=== PATIENT | female | born 1970 | race African-American/Black ===

== ENCOUNTER 2019-09-01 12:27 | Emergency (ER) | payer OTHER, MEDICAID, SELFPAY ==
--- NOTE | ~2019-09-01 | CT_ITS ---
EXAMINATION: CT abdomen pelvis wo con DATE: 09/01/2019 15:20 INDICATION: Right abdominal pain. TECHNIQUE: Computed tomography (CT) of the abdomen and pelvis was performed without intravenous contr ast. Automated exposure control and iterative reconstruction technique were employed. The dose-length product was 676.58 mGy-cm. COMPARISON: None. FINDINGS: The visualized portions of the lung bases demonstrate minimal atelectasis in right middle l obe. No pleural effusion. The heart size is normal. No pericardial effusion. The liver, gallbladder, spleen, pancreas, adrenal glands, and kidneys are normal. There is no urolithiasis. There are no dila [place] loops of bowel. The appendix is normal. There are no pathologically enlarged lymph nodes. There i s no free intraperitoneal fluid. There is mild lumbar spondylosis. IMPRESSION: 1. No etiology for the patient's symptoms. Reviewed, dictated and finalized at location A.
[2019-09-01 12:46] VITALS: BP 167/83; PULSE 66; RESP 18; TEMP 36.2; O2SAT 100
--- NOTE | 2019-09-01 12:48 | ED.GENADULT ---
HPI - General Adult General Chief complaint: Unspecified <Garima Rodriguez PA-C - Last Filed: 09/01/19 16:21> Stated complaint: headache/dizziness/right shoulder/side pain <Garima Rodriguez PA-C - Last Filed: 09/01/19 16:21> Time Seen by Provider: 09/01/19 12:37 <Garima Rodriguez PA-C - Last Filed: 09/01/19 16:21> Source: patient <Garima Rodriguez PA-C - Last Filed: 09/01/19 16:21> Mode of arrival: ambulatory <Garima Rodriguez PA-C - Last Filed: 09/01/19 16:21> Limitations: no limitations <Garima Rodriguez PA-C - Last Filed: 09/01/19 16:21> History of Present Illness HPI narrative: Pt is here for a multitude of complaints, including nausea, occasional headache on left, right shoulder pain (which is chronic), and right upper quadrant pain (which is also chronic). She states that she has felt tired and hasn't felt like eating. She had cereal and and a muffin for breakfast. She also had an episode of diarrhea after eating breakfast. <Garima Rodriguez PA-C - Last Filed: 09/01/19 16:21> Onset (ago): day(s) <Garima Rodriguez PA-C - Last Filed: 09/01/19 16:21> Radiation: non-radiation <THAI Chung Last Filed: 09/01/19 16:21> Pain Consistency: intermittent (RUQ) <THAI Chung Last Filed: 09/01/19 16:21> Relieving factors: none <Garima Rodriguez PA-C - Last Filed: 09/01/19 16:21> Exacerbating factors: none <THAI Chung Last Filed: 09/01/19 16:21> Associated symptoms: denies other symptoms <Garima Rodriguez PA-C - Last Filed: 09/01/19 16:21> Treatments prior to arrival: none <Garima Rodriguez PA-C - Last Filed: 09/01/19 16:21> Related Data Home medications: Home Medications Medication Instructions Recorded Confirmed losartan 50 mg PO BID 03/22/19 nitroglycerin 0.4 mg SUBLINGUAL Q5MIN PRN 03/22/19 ticagrelor [Brilinta] 90 mg PO BID 03/22/19 aspirin 81 mg tablet,delayed 81 mg PO DAILY 04/08/19 release atorvastatin 40 mg PO DAILY 09/01/19 bupropion HCl 150 mg PO QAM 09/01/19 escitalopram oxalate 20 mg PO DAILY 09/01/19 metoprolol succinate 25 mg PO DAILY 09/01/19 <Garima Rodriguez PA-C - Last Filed: 09/01/19 16:21> Allergies/adverse reactions: Allergies Allergy/AdvReac Type Severity Reaction Status Date / Time trimethoprim Allergy Severe HIVES, Verified 09/01/19 12:37 RASH, ITCHING sulfamethoxazole Allergy Unknown HIVES, Verified 09/01/19 12:37 RASH, ITCHING <Garima Rodriguez PA-C - Last Filed: 09/01/19 16:21> Review of Systems Review of Systems: All systems reviewed & are unremarkable except as noted in HPI and below <Garima Rodriguez PA-C - Last Filed: 09/01/19 16:21> [facility] Past Medical History Medical History: Medical History Coronary artery disease GERD (gastroesophageal reflux disease) Hypertension Recent heart attack <Garima Rodriguez PA-C - Last Filed: 09/01/19 16:21> Surgical History Surgical History: Surgical History H/O cardiac catheterization H/O: hysterectomy History of section History of colonoscopy <Garima Rodriguez PA-C - Last Filed: 09/01/19 16:21> Family History Family History: Family History Mother Hypertension Lupus Grandparent Hypertension Hyperlipidemia <Garima Rodriguez PA-C - Last Filed: 09/01/19 16:21> Social History Social History: Social History Smoking status: Never smoker Gender identity (if verbalized by the patient): Female <Garima Rodriguez PA-C - Last Filed: 09/01/19 16:21> Exam Const: General: no acute distress and alert <Garima Rodriguez PA-C - Last Filed: 09/01/19 16:21> Orientation/consciousness: patient oriented x3 <[place] Chung
[2019-09-01 12:51] VITALS: PULSE 56
--- NOTE | 2019-09-01 13:00 | ECG_ITS ---
Measurements Intervals [place] Rate: 65 P: 56 CO: 172 QRS: 28 QRSD: 85 T: 15 QT: 420 QTc: 437 Interpretive Statements SINUS RHYTHM BORDERLINE T WAVE ABNORMALITY- ANTEROLAT/INF LEADS BASELINE ARTIFACT- V4-V6 BORDERLINE ECG Electronically Signed On 09-01-2019 13:18:51 CDT by Austin Heller D.O.
[2019-09-01 13:54] VITALS: BP 147/76; PULSE 54; RESP 18; O2SAT 100
[2019-09-01 14:45] LABS: Basophils Percent Auto 0.7 % (0.2-1.2); Eosinophils Absolute Auto 0.3 K/mm3 (0-0.3); Eosinophils Percent Auto 4.6 % (0-4.4); Hematocrit 37.7 % (37.0-47.0); Hemoglobin 11.8 g/dL (12.0-15.0); Immature Granulocyte Absolute 0.04 K/mm3 (0.00-0.031); Immature Granulocyte Percent A 0.7 % (0-0.5); Lymphocytes Absolute Auto 2.21 K/mm3 (0.9-3.2); Lymphocytes Percent Auto 37.6 % (18.3-44.2); Mean Corpuscular HGB Conc 31.3 g/dl (32-36); Mean Corpuscular Hemoglobin 26.8 pg (26-34); Mean Corpuscular Volume 85.7 fl (80-100); Mean Platelet Volume 9.9 fl (7.4-10.4); Monocytes Absolute Auto 0.5 K/mm3 (0.1-0.6); Monocytes Percent Auto 8.5 % (2.6-8.5); Neutrophils Absolute Auto 2.8 K/mm3 (1.3-6.7); Neutrophils Percent Auto 47.9 % (45.5-73.1); Platelet Count Result 238 k/mm3 (150-375); Red Cell Distribution Width 13.9 % (11.5-14.5); White Blood Count 5.9 K/mm3 (4.5-10.0)
[2019-09-01 14:55] LABS: Alanine Aminotransferase 42 U/L (4-35); Albumin Level 4.2 g/dL (3.5-5.1); Alkaline Phosphatase 106 U/L (38-126); Aspartate Amino Transferase 35 U/L (14-36); Bilirubin,Total 0.2 mg/dL (0.2-1.3); Blood Urea Nitrogen 13 mg/dL (7-17); Calcium 8.6 mg/dL (8.4-10.2); Carbon Dioxide 29 mmol/L (22-30); Chloride 102 mmol/L (98-107); Estimated CRCL calculation 94 ml/min; Estimated Glomerular Filt Rate > 60; Glucose 80 mg/dL (65-105); Lipase 58 U/L (23-300); Sodium 137 mmol/L (137-145)
[2019-09-01 15:03] LABS: Add Urine Microscopic? YES; Appearance Urine Clear (Clear); Bacteria Urine Trace /hpf; Bilirubin Urine Negative (Negative); Blood Urine 1+ (Negative); Color Urine Yellow (Yellow); Glucose Urine UA Negative (Negative); Ketones Urine Negative (Negative); Leukocyte Esterase Ur Negative LEU/UL (Negative); Mucus Urine Rare /lpf; Nitrate Urine Negative (Negative); Protein Urine Negative (Negative); Specific Grav Ur 1.016 (1.001-1.035); Squamous Epithelial Cell Urine Occasional /hpf (Few); Urobilinogen Urine Negative mg/dL (<2.0); WBC Urine 0-3 /hpf
[2019-09-01 15:32] VITALS: BP 147/86; PULSE 54; RESP 16; O2SAT 100
[2019-09-01 16:32] VITALS: BP 181/71; PULSE 58; RESP 18; O2SAT 100
== END 2019-09-01 16:34 | disposition home or self-care (01) ==
PROVIDERS: Physician Assistant; Emergency Provider General Practice; PCP Family Medicine
DX: M25.511 Pain in right shoulder (principal); G89.29 Other chronic pain; R10.11 Right upper quadrant pain; I25.10 Atherosclerotic heart disease of native coronary artery without angina pectoris; K21.9 Gastro-esophageal reflux disease without esophagitis; I10 Essential (primary) hypertension; I25.2 Old myocardial infarction; R94.31 Abnormal electrocardiogram [ECG] [EKG]
CPT/HCPCS: 36415; 74176; 80053; 81001; 83690; 85025; 93005; 99284

== ENCOUNTER 2019-09-24 08:58 | Outpatient (CLI) | payer OTHER, MEDICAID, SELFPAY ==
--- NOTE | ~2019-09-24 | CT_ITS ---
EXAMINATION: CT abdomen pelvis w con DATE: 09/24/2019 09:54 INDICATION: Microscopic hematuria TECHNIQUE: Computed tomography (CT) of the abdomen and pelvis was performed with 130 cc Omnipaque 350 intravenous contrast. The dose-length product was 1041.00 mGy-cm. Automated exposure control and ite rative reconstruction technique were employed. COMPARISON: CT dated 09/01/2019 FINDINGS: Lung bases are unremarkable. No significant pleural or pericardial effusion. No significant vascular abnormality. No lymphadenopathy. The liver, spleen, pancreas, adrenal glands are unremarkable. There are tiny hypodensities of the lef t kidney measuring 3 mm or less, likely benign cysts. Gallbladder is present. Ureters are normal in c ourse and caliber. Bladder wall is mildly thickened, although no discrete mass is identified. Nonobst ructive bowel gas pattern. Mild lumbar spondylosis. IMPRESSION: 1. Mild bladder wall thickening, possibly due to underdistention. Consider cystitis in the appropriat e clinical setting. 2: Small hypodense lesions of the left kidney measuring 3 mm or less, most likely benign cysts. Reviewed, dictated and finalized at location A. IMPRESSION: 1. Mild bladder wall thickening, possibly due to underdistention. Consider cyst itis in the appropriate clinical setting. 2: Small hypodense lesions of the left kidney measuring 3 mm or less, most lik julita benign cysts.
[2019-09-24 09:37] LABS: Estimated Glomerular Filt Rate > 60
== END 2019-09-24 08:59 | disposition home or self-care (01) ==
PROVIDERS: PCP Family Medicine; Visit Provider Urology
DX: R31.29 Other microscopic hematuria (principal); N32.9 Bladder disorder, unspecified; N28.9 Disorder of kidney and ureter, unspecified
CPT/HCPCS: 36415; 74177; Q9967

== ENCOUNTER → 2020-05-14 12:36 | Outpatient (CLI) | payer OTHER, MEDICAID, SELFPAY ==
--- NOTE | ~2020-05-14 | US_ITS ---
EXAMINATION: US pelvic complete w TV DATE: 05/14/2020 13:36 INDICATION: Pelvic pain, hysterectomy with questionable right oophorectomy TECHNIQUE: Multiple transabdominal and endovaginal sonographic images of the pelvis were obtained. COMPARISON: 05/20/2017; CT, 09/24/2019 FINDINGS: The uterus is surgically absent. The ovaries are not visualized however no adnexal abnormal ity is seen. There is no free fluid in the pelvis. IMPRESSION: 1. No sonographic correlate for the patient's symptoms. Reviewed, dictated and finalized at location A. 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
== END ==
PROVIDERS: PCP Family Medicine; Visit Provider Obstetrics & Gynecology
DX: R10.2 Pelvic and perineal pain (principal)
CPT/HCPCS: 76830; 76856

== ENCOUNTER 2020-07-09 11:03 | Outpatient (CLI) | payer OTHER, MEDICAID, SELFPAY | END 2020-07-09 11:04 | disposition home or self-care (01) | LOC: ANHCOVIDVC 11:03 | PROVIDERS: PCP Family Medicine | DX: Z23 Encounter for immunization (principal) | CPT/HCPCS: 0001A; 91300 ==

== ENCOUNTER 2020-07-14 08:24 | Outpatient (CLI) | payer OTHER, MEDICAID, SELFPAY ==
[2020-07-14 09:00] LABS: Basophils Percent Auto 0.6 % (0.2-1.2); Eosinophils Absolute Auto 0.2 K/mm3 (0-0.3); Eosinophils Percent Auto 3.9 % (0-4.4); Hematocrit 37.7 % (37.0-47.0); Hemoglobin 11.9 g/dL (12.0-15.0); Immature Granulocyte Absolute 0.01 K/mm3 (0.00-0.031); Immature Granulocyte Percent A 0.2 % (0-0.5); Lymphocytes Absolute Auto 2.23 K/mm3 (0.9-3.2); Mean Corpuscular HGB Conc 31.6 g/dl (32-36); Mean Corpuscular Hemoglobin 27.5 pg (26-34); Mean Corpuscular Volume 87.1 fl (80-100); Mean Platelet Volume 9.8 fl (7.4-10.4); Monocytes Absolute Auto 0.4 K/mm3 (0.1-0.6); Monocytes Percent Auto 8.1 % (2.6-8.5); Neutrophils Absolute Auto 2.5 K/mm3 (1.3-6.7); Neutrophils Percent Auto 46.2 % (45.5-73.1); Platelet Count Result 267 k/mm3 (150-375); Red Blood Count 4.33 M/mm3 (4.2-5.4); Red Cell Distribution Width 14.2 % (11.5-14.5); White Blood Count 5.4 K/mm3 (4.5-10.0)
[2020-07-14 09:23] LABS: Alanine Aminotransferase 38 U/L (4-35); Albumin Level 4.1 g/dL (3.5-5.1); Alkaline Phosphatase 85 U/L (38-126); Anion Gap 5 mmol/L (8-16); Aspartate Amino Transferase 37 U/L (14-36); Bilirubin,Total 0.2 mg/dL (0.2-1.3); Blood Urea Nitrogen 17 mg/dL (7-17); Calcium 8.5 mg/dL (8.4-10.2); Carbon Dioxide 31 mmol/L (22-30); Chloride 104 mmol/L (98-107); Cholesterol 132 mg/dL (0-200); Estimated Glomerular Filt Rate > 60; Glucose 98 mg/dL (65-105); HDL Direct 59 mg/dL; Potassium 3.8 mmol/L (3.4-5.0); Sodium 140 mmol/L (137-145); Triglycerides 50 mg/dL (<150)
[2020-07-14 09:25] LABS: Hemoglobin A1C 5.8 % (<5.7)
[2020-07-14 09:34] LABS: LDL Cholesterol Direct 46 mg/dL
[2020-07-14 10:16] LABS: Free T4 Free Thyroxine 0.94 ng/mL (0.78-2.19); Vitamin D 25 Hydroxy 26.2 ng/mL
== END 2020-07-14 08:25 | disposition home or self-care (01) ==
PROVIDERS: PCP Family Medicine; Visit Provider Family Medicine
DX: R53.83 Other fatigue (principal); I10 Essential (primary) hypertension; E78.5 Hyperlipidemia, unspecified; R73.03 Prediabetes
CPT/HCPCS: 36415; 80053; 80061; 82306; 83036; 84439; 84443; 85025

== ENCOUNTER 2020-07-16 07:45 | Emergency (ER) | payer OTHER, MEDICAID, SELFPAY ==
--- NOTE | ~2020-07-16 | XR_ITS ---
EXAMINATION: XR lumbar spine 2-3V DATE: 07/16/2020 08:21 INDICATION: Low back pain. TECHNIQUE: 3 views of lumbar spine were obtained. COMPARISON: None. FINDINGS: There is 3 degrees levocurvature of lumbar spine. Vertebral body heights are normal. Interv ertebral disc heights are normal. There are endplate osteophytes at all levels. The facet joints are unremarkable. IMPRESSION: 1. Mild lumbar spondylosis. Reviewed, dictated and finalized at location A. IMPRESSION: 1. Mild lumbar spondylosis.
[2020-07-16 07:57] VITALS: BP 135/81; PULSE 72; RESP 18; TEMP 36.5; O2SAT 100
--- NOTE | 2020-07-16 08:29 | ED.BACK ---
HPI - Back Pain/Injury General Chief Complaint: Back Pain/Injury Stated Complaint: right sided back pain Time Seen by Provider: 07/16/20 07:49 History of Present Illness HPI Narrative: Patient is a 49-year-old female who presents ER with right-sided low back pain. Patient reports aching pain for quite a while but cannot put a number on it. Reports last night and all night she started having increased pain in her low back. This morning when she woke up it became very sharp and severe. Is worse with movement and bending. She feels like it grabs. No numbness or tingling in lower extremities, no saddle anesthesia, no urinary/fecal incontinence/retention. Has not tried any [id number] medications for this. She does have a naproxen allergy. No known trauma. No fevers or chills. Patient reports chronic night sweats. Related Data Allergies Allergy/AdvReac Type Severity Reaction Status Date / Time naproxen [From Aleve] Allergy Unknown Verified 07/16/20 07:59 Review of Systems Review of Systems: All systems reviewed & are unremarkable except as noted in HPI and below Constitutional: Constitutional: Denies chills, Denies fever(s) and Denies weakness Gastrointestinal: Gastrointestinal: Denies abdominal pain, Denies nausea and Denies vomiting Musculoskeletal: Musculoskeletal: Reports back pain, Denies arthralgias, Denies joint swelling and Reports muscle cramps Neurologic: Denies focal weakness and Denies numbness PMFSH Past Medical History Medical History (Updated 07/16/20 @ 08:45 by Sam Lerma MD) Anxiety Coronary artery disease Depression GERD (gastroesophageal reflux disease) Hyperlipidemia Hypertension Myocardial infarct Surgical History Surgical History (Updated 07/16/20 @ 08:43 by Sam Lerma MD) History of partial hysterectomy History of percutaneous coronary intervention Social History Social History (Updated 07/16/20 @ 08:43 by Sam Lerma MD) Smoking status: Never smoker Gender identity (if verbalized by the patient): Female Exam Narrative: Exam Narrative: GENERAL: Well-appearing, well-nourished, and in no acute distress. HEAD: Normocephalic, atraumatic. CHEST: Clear to auscultation. No respiratory distress. HEART: Regular rate and rhythm. Normal peripheral pulses. EXTREMITIES: Normal range of motion. No edema. Back: No midline tenderness of thoracic or lumbar spine. There is significant paraspinal muscular tenderness that the SI region and L4 region on the right side. No left-sided paraspinal muscular tenderness. Normal straight leg raise. SKIN: Warm, dry, no rash. NEURO: Alert and oriented x3. Course Course Emergency Course: Patient declining any pain medication in the ER. Informed results. Requests some time off work to let her back recover. This seems fair, will prescribe Flexeril for home and patient reports she has Tylenol she can take. Also recommended ice and heat as well as Biofreeze for symptomatic relief. Vital Signs Vital signs: Vital Signs Temperature 97.7 F 07/16/20 07:57 Pulse Rate 72 07/16/20 07:57 Respiratory Rate 18 07/16/20 07:57 Blood Pressure 135/81 07/16/20 07:57 Pulse Oximetry 100 07/16/20 07:57 Temperature 97.7 F 07/16/20 07:57 Pulse Rate 72 07/16/20 07:57 Respiratory Rate 18 07/16/20 07:57 Blood Pressure 135/81 07/16/20 07:57 Pulse Oximetry 100 07/16/20 07:57 MDM - Back Pain/Injury Imaging Data Radiologist's impression: ITS Impressions Lumbar Spine X-Ray 07/16/20 08:27 IMPRESSION: 1. Mild lumbar spondylosis. Discharge Plan Discharge Clinical Impression: Strain of lumbar region Patient Disposition: Home, Self-Care Condition: Stable Instructions: Acute Low Back Pain (ED), Lower Back Exercises (ED) Additional Instructions: Return to the ER if you have increased pain in your back, you develop lower extremity weakness/numbness/paralysis, you have numbness o
== END 2020-07-16 08:58 | disposition home or self-care (01) ==
PROVIDERS: Emergency Provider Emergency Medicine; PCP Family Medicine
DX: S39.012A Strain of muscle, fascia and tendon of lower back, initial encounter (principal); I25.10 Atherosclerotic heart disease of native coronary artery without angina pectoris; K21.9 Gastro-esophageal reflux disease without esophagitis; E78.5 Hyperlipidemia, unspecified; I10 Essential (primary) hypertension; I25.2 Old myocardial infarction; M47.816 Spondylosis without myelopathy or radiculopathy, lumbar region; X58.XXXA Exposure to other specified factors, initial encounter
CPT/HCPCS: 72100; 99283

== ENCOUNTER 2020-07-30 11:12 | Outpatient (CLI) | payer OTHER, MEDICAID, SELFPAY | END 2020-07-30 11:13 | disposition home or self-care (01) | LOC: ANHCOVIDVC 11:12 | PROVIDERS: PCP Family Medicine | DX: Z23 Encounter for immunization (principal) | CPT/HCPCS: 0002A; 91300 ==

== ENCOUNTER 2020-09-21 08:54 | Outpatient (CLI) | payer OTHER, MEDICAID, SELFPAY ==
--- NOTE | ~2020-09-21 | US_ITS ---
EXAMINATION: US right upper quadrant DATE: 09/21/2020 09:19 INDICATION: Right upper quadrant abdominal pain. TECHNIQUE: Multiple grayscale and Doppler ultrasound images of the abdomen were obtained. COMPARISON: None FINDINGS: The visualized portions of the head, body, and tail of the pancreas are normal. There is di ffuse hepatic steatosis. No liver surface nodularity. There is normal flow in main portal vein. The g allbladder is normal in size. No gallstones or gallbladder wall thickening. There is no sonographic M urphy sign. The common duct is normal and measures 3 mm. IMPRESSION: 1. Diffuse hepatic steatosis. Reviewed, dictated and finalized at location B.
== END 2020-09-21 08:55 | disposition home or self-care (01) ==
LOC: ANHIMG 08:59
PROVIDERS: PCP Family Medicine; Visit Provider Family Medicine
DX: R10.11 Right upper quadrant pain (principal); K76.0 Fatty (change of) liver, not elsewhere classified
CPT/HCPCS: 76705

== ENCOUNTER 2020-12-28 09:38 | Emergency (ER) | payer OTHER, MEDICAID, SELFPAY ==
[2020-12-28 09:38] VITALS: BP 150/71; PULSE 89; RESP 20; TEMP 36.6; O2SAT 99
--- NOTE | 2020-12-28 09:44 | ECG_ITS ---
Measurements Intervals [place] Rate: 77 P: 60 NE: 177 QRS: 7 QRSD: 89 T: 5 QT: 393 QTc: 447 Interpretive Statements SINUS RHYTHM POSSIBLE LEFT ATRIAL ENLARGEMENT INCOMPLETE RIGHT BUNDLE BRANCH BLOCK VOLTAGE CRITERIA FOR LVH BORDERLINE T WAVE ABNORMALITY- ANTEROLAT/INF LEADS BASELINE ARTIFACT- I, II, III, AVR, AVL BORDERLINE ECG Electronically Signed On 12-28-2020 9:57:08 CDT by Austin Heller D.O.
[2020-12-28 10:54] LABS: Basophils Percent Auto 0.5 % (0.2-1.2); Eosinophils Percent Auto 0.5 % (0-4.4); Hematocrit 40.3 % (37.0-47.0); Hemoglobin 12.4 g/dL (12.0-15.0); Immature Granulocyte Absolute 0.04 K/mm3 (0.00-0.031); Immature Granulocyte Percent A 0.5 % (0-0.5); Lymphocytes Absolute Auto 1.85 K/mm3 (0.9-3.2); Lymphocytes Percent Auto 22.9 % (18.3-44.2); Mean Corpuscular HGB Conc 30.8 g/dl (32-36); Mean Corpuscular Hemoglobin 26.9 pg (26-34); Mean Corpuscular Volume 87.4 fl (80-100); Mean Platelet Volume 9.4 fl (7.4-10.4); Monocytes Absolute Auto 0.6 K/mm3 (0.1-0.6); Monocytes Percent Auto 6.8 % (2.6-8.5); Neutrophils Absolute Auto 5.6 K/mm3 (1.3-6.7); Neutrophils Percent Auto 68.8 % (45.5-73.1); Platelet Count Result 290 k/mm3 (150-375); Red Blood Count 4.61 M/mm3 (4.2-5.4); Red Cell Distribution Width 14.7 % (11.5-14.5); White Blood Count 8.1 K/mm3 (4.5-10.0)
[2020-12-28 11:12] LABS: Anion Gap 9 mmol/L (8-16); Blood Urea Nitrogen 14 mg/dL (7-17); Calcium 9.3 mg/dL (8.4-10.2); Carbon Dioxide 29 mmol/L (22-30); Chloride 96 mmol/L (98-107); Estimated CRCL calculation 82 ml/min; Estimated Glomerular Filt Rate > 60; Glucose 126 mg/dL (65-110); Potassium 3.8 mmol/L (3.4-5.0); Sodium 134 mmol/L (137-145)
--- NOTE | 2020-12-28 11:30 | ED.HA ---
HPI - Headache General Chief Complaint: Headache Stated Complaint: HEADACHE Time Seen by Provider: 12/28/20 11:10 History of Present Illness HPI Narrative: 50 yo female w/ h/o htn presents to the ED with multiple complaints. She reports that since yesterday she has had a strange uncomfortable feeling in her head. She says that the left side of her scalp feels like a sponge that has had the water squeezed out of it. In addition to this she also complains of intermittent dizziness. It is difficult to tell if this is more vertigo, near syncope, or a combination. She also has intermittent, but not temporally related nausea. in addition to this she also feels like her hands and legs are getting hot. Related Data Home Medications Medication Instructions Recorded Confirmed atorvastatin 12/28/20 clopidogrel 12/28/20 felodipine mg PO 12/28/20 hydrochlorothiazide 12/28/20 losartan 12/28/20 metoprolol succinate PO 12/28/20 12/28/20 Allergies Allergy/AdvReac Type Severity Reaction Status Date / Time naproxen [From Aleve] Allergy Unknown Verified 07/16/20 07:59 Review of Systems Review of Systems: All systems reviewed & are unremarkable except as noted in HPI and below Constitutional: Constitutional: Denies fever(s) and Denies weakness ENT: Reports dizziness and Reports nasal congestion Cardiovascular: Cardiovascular: Denies chest pain Respiratory: Respiratory: Reports no additional respiratory complaints Gastrointestinal: Gastrointestinal: Denies abdominal pain Genitourinary: Genitourinary: Denies hematuria and Denies dysuria Musculoskeletal: Musculoskeletal: Reports no additional musculoskeletal complaints Neurologic: Reports as per HPI Psychiatric: Psychiatric: Reports no additional psychiatric complaints Endocrine: Endocrine: Reports no additional endocrine complaints Hematologic/Lymphatic: Hematologic/Lymphatic: Reports no additional hematologic/lymphatic complaints [facility] Past Medical History Medical History Anxiety Coronary artery disease Depression GERD (gastroesophageal reflux disease) Hyperlipidemia Hypertension Myocardial infarct Surgical History Surgical History History of partial hysterectomy History of percutaneous coronary intervention Social History Social History Smoking status: Never smoker Gender identity (if verbalized by the patient): Female Exam Const: General: healthy appearing, no acute distress and alert Orientation/consciousness: patient oriented x3 HENMT: Head: normal to inspection, no contusions and no lacerations Ears: external ears normal, TM's normal bilaterally and EAC's normal Face and sinus: normal facial exam and sinuses nontender Mouth: Yes moist mucous membranes abnormal Eyes: Conjunctivae: conjunctivae normal Pupils: Equal, round and reactive pupils present EOM: EOMs intact bilaterally Neck: Neck: normal visual inspection and no lymphadenopathy Resp: Effort & Inspection: normal respiratory effort Auscultation: clear to auscultation bilaterally, no rales, no rhonchi and no wheezes Cardio: Jugular venous distension: no JVD Rate: regular rate Rhythm: regular rhythm Heart sounds: no murmurs GI: Inspection: non-distended GI Palp: Yes Soft to palpation and No Tenderness to palpation present (GI) Skin: General skin exam: normal color Rashes: no rashes Neuro: General: patient oriented x3, moves all extremities, no focal motor deficits and CN's II-XI intact bilaterally Cranial nerves: Yes Nystagmus not present Speech: normal speech Gait exam (Neuro): Normal gait present Motor exam (neuro): 5/5 motor strength present throughout Extrem: General: no edema Psych: Appearance: well kempt Affect: Anxious affect present Course Vital Signs Vital signs: Vital Signs Temperat
[2020-12-28] MEDS: SODIUM CHLORIDE 0.9% IV 1,000 ML 999 ML IV CONT (12:09)
--- NOTE | 2020-12-28 12:18 | PC.NURSE ---
Pt refused medication. EDP notified
[2020-12-28] MEDS: MECLIZINE HCL 25 MG TABLET PO (13:43)
[2020-12-28 13:44] VITALS: BP 149/69; PULSE 87; RESP 19; O2SAT 99
== END 2020-12-28 14:11 | disposition home or self-care (01) ==
PROVIDERS: Emergency Medicine; Emergency Provider Emergency Medicine; PCP Family Medicine
DX: R42 Dizziness and giddiness (principal); I10 Essential (primary) hypertension; I25.10 Atherosclerotic heart disease of native coronary artery without angina pectoris; K21.9 Gastro-esophageal reflux disease without esophagitis; E78.5 Hyperlipidemia, unspecified; I25.2 Old myocardial infarction; I45.10 Unspecified right bundle-branch block; R94.31 Abnormal electrocardiogram [ECG] [EKG]
CPT/HCPCS: 36415; 80048; 85025; 93005; 96360; 99283; A9270; J7030

== ENCOUNTER 2020-12-30 23:21 | Emergency (ER) | payer OTHER, MEDICAID, SELFPAY ==
--- NOTE | ~2020-12-30 | XR_ITS ---
EXAMINATION: XR chest 2V DATE: 12/30/2020 23:47 INDICATION: Chest pain. TECHNIQUE: Frontal and lateral views of the chest were obtained. COMPARISON: Chest single view 06/16/2018, CT abdomen and pelvis 09/24/2019 FINDINGS: There is scarring at right lung apex. No pleural effusion or pneumothorax. The heart size i s normal. IMPRESSION: 1. Stable mild scarring at right lung apex. Reviewed, dictated and finalized at location A.
[2020-12-30 23:22] VITALS: BP 165/79; PULSE 77; RESP 20; TEMP 36.3; O2SAT 100
--- NOTE | 2020-12-30 23:27 | ECG_ITS ---
Measurements Intervals [place] Rate: 78 P: 62 [place]: 136 QRS: 25 QRSD: 85 T: 44 QT: 396 QTc: 453 Interpretive Statements SINUS RHYTHM POSSIBLE LEFT ATRIAL ENLARGEMENT INCOMPLETE RIGHT BUNDLE BRANCH BLOCK BORDERLINE ECG Electronically Signed On 12-31-2020 6:20:01 CDT by Austin Heller D.O.
[2020-12-30 23:41] LABS: Basophils Percent Auto 0.3 % (0.2-1.2); Eosinophils Absolute Auto 0.1 K/mm3 (0-0.3); Eosinophils Percent Auto 0.7 % (0-4.4); Hematocrit 41.5 % (37.0-47.0); Hemoglobin 13.1 g/dL (12.0-15.0); Immature Granulocyte Absolute 0.01 K/mm3 (0.00-0.031); Immature Granulocyte Percent A 0.1 % (0-0.5); Lymphocytes Absolute Auto 2.99 K/mm3 (0.9-3.2); Lymphocytes Percent Auto 30.2 % (18.3-44.2); Mean Corpuscular HGB Conc 31.6 g/dl (32-36); Mean Corpuscular Hemoglobin 27.3 pg (26-34); Mean Corpuscular Volume 86.6 fl (80-100); Mean Platelet Volume 9.1 fl (7.4-10.4); Monocytes Absolute Auto 0.6 K/mm3 (0.1-0.6); Monocytes Percent Auto 6.4 % (2.6-8.5); Neutrophils Absolute Auto 6.2 K/mm3 (1.3-6.7); Neutrophils Percent Auto 62.3 % (45.5-73.1); Platelet Count Result 307 k/mm3 (150-375); Red Blood Count 4.79 M/mm3 (4.2-5.4); Red Cell Distribution Width 14.4 % (11.5-14.5); White Blood Count 9.9 K/mm3 (4.5-10.0)
[2020-12-30 23:52] LABS: INR 0.9; Prothrombin Time 11.8 Seconds (11.1-14.7)
[2020-12-30 23:53] LABS: Anion Gap 7 mmol/L (8-16); Blood Urea Nitrogen 13 mg/dL (7-17); Calcium 9.5 mg/dL (8.4-10.2); Carbon Dioxide 29 mmol/L (22-30); Chloride 100 mmol/L (98-107); Estimated CRCL calculation 82 ml/min; Estimated Glomerular Filt Rate > 60; Glucose 136 mg/dL (65-110); Partial Thromboplastin Time 29.6 SECONDS (22.3-36.8); Potassium 3.7 mmol/L (3.4-5.0); Sodium 136 mmol/L (137-145)
[2020-12-31 00:05] LABS: Troponin I < 0.012 ng/mL (0.000-0.034)
--- NOTE | 2020-12-31 00:15 | ED.CHESTPAIN ---
HPI - Chest Pain General Chief Complaint: Chest Pain Stated Complaint: rapid heart beat, tingling hands, pressure lf head Time Seen by Provider: 12/31/20 00:03 Source: patient Mode of arrival: ambulatory Limitations: no limitations History of Present Illness HPI narrative: 50-year-old with a history of CAD, anxiety disorder here with complaints of chest pain . Hand and feet swelling and tingling sensation in the face and arms started few hours ago. Patient states she was seen in the ER 2 days ago for vertigo and also has seen her primary doctor who started on Lexapro and alprazolam. Patient states that she has taken Lexapro but not alprazolam. She presently denies having any chest pain or shortness of breath. She states that by the time she came to the ER her symptoms have much subsided. MD complaint: chest discomfort Pertinent past history: prior [place] Onset (ago): hour(s) (3) Timing of current episode: episodic Prior episodes: No Pain location: substernal Pain radiation: none Quality: fullness and other (Butterflies on the chest) Relieving factors: nothing Exacerbating factors: nothing Context: recent illness Treatment prior to arrival: none Risk Factors Coronary artery disease risk factors: hyperlipidemia and hypertension Related Data On Oral Contraceptives: No Home Medications Medication Instructions Recorded Confirmed losartan 50 mg PO BID 03/22/19 05/17/20 nitroglycerin 0.4 mg SUBLINGUAL Q5MIN PRN 03/22/19 05/17/20 aspirin 81 mg tablet,delayed 81 mg PO DAILY 04/08/19 05/17/20 release atorvastatin 40 mg PO DAILY 09/01/19 05/17/20 bupropion HCl 150 mg PO QAM 09/01/19 05/17/20 escitalopram oxalate 20 mg PO DAILY 09/01/19 05/17/20 metoprolol succinate 25 mg PO DAILY 09/01/19 05/17/20 amlodipine 5 mg tablet 5 mg PO DAILY 05/07/20 05/17/20 famotidine 20 mg tablet 20 mg PO DAILY 05/07/20 05/17/20 hydrochlorothiazide 25 mg tablet 25 mg PO DAILY 05/07/20 05/17/20 Allergies Allergy/AdvReac Type Severity Reaction Status Date / Time trimethoprim Allergy Severe HIVES, Verified 12/31/20 00:24 RASH, ITCHING sulfamethoxazole Allergy Unknown HIVES, Verified 12/31/20 00:24 RASH, ITCHING naproxen [From Aleve] Allergy Hives Verified 12/31/20 00:24 Review of Systems Review of Systems: All systems reviewed & are unremarkable except as noted in HPI and below Constitutional: Constitutional: Reports no additional constitutional complaints Eyes: Eyes: Reports no additional eye complaints ENT: Reports system reviewed and no additional complaints, except as documented Cardiovascular: Cardiovascular: Reports as per HPI Respiratory: Respiratory: Reports as per HPI Gastrointestinal: Gastrointestinal: Reports no additional gastrointestinal complaints Musculoskeletal: Musculoskeletal: Reports no additional musculoskeletal complaints Neurologic: Reports system reviewed and no additional complaints, except as documented Psychiatric: Psychiatric: Reports anxiety Endocrine: Endocrine: Reports no additional endocrine complaints [facility] Past Medical History Medical History (Updated 12/31/20 @ 00:27 by Dave Villar MD) Coronary artery disease GERD (gastroesophageal reflux disease) Hypertension Recent heart attack Surgical History Surgical History H/O cardiac catheterization H/O: hysterectomy History of section History of colonoscopy Family History Family History Mother Hypertension Lupus Grandparent Hypertension Hyperlipidemia Mother Hypertension Family history of lupus erythematosus, Onset Age: 59 Grandparent Hypertension, Onset Age: 74 Family history of elevated blood lipids, Onset Age: 74 Social History Social History Smoking status: Never smoker Second hand tobacco smoke exposure: No Alcohol intake: current
[2020-12-31 00:38] VITALS: BP 154/78; PULSE 65; RESP 14; O2SAT 100
== END 2020-12-31 00:38 | disposition home or self-care (01) ==
PROVIDERS: Emergency Provider Family Medicine; PCP Family Medicine
DX: F41.9 Anxiety disorder, unspecified (principal); R07.89 Other chest pain; I25.10 Atherosclerotic heart disease of native coronary artery without angina pectoris; K21.9 Gastro-esophageal reflux disease without esophagitis; I10 Essential (primary) hypertension
CPT/HCPCS: 36415; 71046; 80048; 84484; 85025; 85610; 85730; 93005; 99284

== ENCOUNTER 2021-01-28 12:42 | Outpatient (CLI) | payer OTHER, MEDICAID, SELFPAY ==
--- NOTE | ~2021-01-28 | MR_ITS ---
EXAMINATION: MR brain/brain stem wo/w con EXAM DATE: 01/28/2021 14:40 INDICATION: Other Abn of gait and mobility . Positive Romberg sign, abnormal gait. Frequent headaches . TECHNIQUE: Magnetic resonance imaging (MRI) of the brain/brain stem obtained without contrast. Sagit adalgisa T1, axial diffusion, gradient echo (T2*), T1, T2, FLAIR sequences obtained. Patient was then inj ected with 18 cc intravenous Multihance contrast. Axial and coronal postcontrast T1 weighted sequence s obtained. There is no prior study for comparison. FINDINGS: There are no areas of restricted diffusion to suggest acute infarction. There is no acute hemorrhage seen on the T2*, a hemosiderin sensitive sequence. No intraparenchymal brain mass. The ve ntricles are normal in size. There are no extra-axial collections. Flow voids are seen in the cereb ral arteries on the T2-weighted sequences consistent with their expected patency. The orbits are unr emarkable. Soft tissue is unremarkable. There are no areas of abnormal enhancement on the postcont rast images. IMPRESSION: 1. Normal brain MRI examination. Reviewed, dictated and finalized at location A.
[2021-01-28 14:16] LABS: Estimated Glomerular Filt Rate > 60
== END 2021-01-28 12:43 | disposition home or self-care (01) ==
PROVIDERS: PCP Family Medicine; Visit Provider Family Medicine
DX: R26.9 Unspecified abnormalities of gait and mobility (principal)
CPT/HCPCS: 70553; A9577

== ENCOUNTER → 2021-03-16 09:59 | Outpatient (REF) | payer OTHER, MEDICAID, SELFPAY | LOC: ANHLAB 09:59 | PROVIDERS: PCP Family Medicine; Visit Provider Nurse Practitioner | DX: L90.5 Scar conditions and fibrosis of skin (principal); D36.10 Benign neoplasm of peripheral nerves and autonomic nervous system, unspecified | CPT/HCPCS: 88304; 88305 ==

== ENCOUNTER 2021-06-05 10:10 | Outpatient (CLI) | payer BC, MEDICAID, SELFPAY ==
--- NOTE | ~2021-06-05 | MM_ITS ---
EXAMINATION: MM screening dania BI w betsy HISTORY: Screening TECHNIQUE: Craniocaudal and mediolateral oblique 3-D tomosynthesis images were obtained and synthetic 2-D images were generated. CAD analysis was submitted and interpreted. COMPARISON: Comparison to multiple prior studies sequentially, with oldest reviewed study dated 12/12. BREAST PARENCHYMAL COMPOSITION: There are scattered areas of fibroglandular density. FINDINGS: There is no evidence of suspicious mass, calcification, or architectural distortion to sugg est malignancy in either breast. There has been no suspicious interval change. IMPRESSION: 1. No mammographic evidence of malignancy. 2. Recommend routine screening mammography in one year. BI-RADS Category 1: Negative Reviewed, dictated and finalized at location A. 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
== END 2021-06-05 10:11 | disposition home or self-care (01) ==
PROVIDERS: Visit Provider Obstetrics & Gynecology
DX: Z12.31 Encounter for screening mammogram for malignant neoplasm of breast (principal)
CPT/HCPCS: 77063; 77067

== ENCOUNTER 2021-07-10 08:43 | Outpatient (CLI) | payer BC, OTHER, MEDICAID, SELFPAY ==
--- NOTE | ~2021-07-10 | XR_ITS ---
EXAMINATION: XR hip RT min 2V DATE: 07/10/2021 09:01 INDICATION: Trochanteric bursitis of right hip. TECHNIQUE: 2 views of right hip were obtained. COMPARISON: None. FINDINGS: Bone alignment is normal. No fracture. There is mild right hip osteoarthritis. IMPRESSION: 1. Mild right hip osteoarthritis. Reviewed, dictated and finalized at location A. 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
== END 2021-07-10 08:44 | disposition home or self-care (01) ==
PROVIDERS: PCP Family Medicine; Visit Provider Family Medicine
DX: M70.61 Trochanteric bursitis, right hip (principal); M16.11 Unilateral primary osteoarthritis, right hip
CPT/HCPCS: 73502

== ENCOUNTER 2021-08-12 11:10 | Outpatient (CLI) | payer BC, OTHER, MEDICAID, SELFPAY ==
--- NOTE | ~2021-08-12 | CT_ITS ---
EXAMINATION: CT abdomen pelvis w con INDICATION: Right lower quadrant pain TECHNIQUE: Computed tomographic images of the abdomen and pelvis were obtained after the administrati on of 100 cc of Omnipaque 350 intravenous contrast. The dose-length product (DLP) was 869.14 mGy-cm. Automated exposure control and iterative reconstruction technique were employed. COMPARISON: 09/24/2019 FINDINGS: The lung bases are clear. The heart size is normal. A coronary artery stent is noted. The l iver, spleen, pancreas, gallbladder, and adrenal glands are normal. The kidneys are unremarkable. No pathologically enlarged abdominal or pelvic lymph nodes are identified. There is no free intraperiton eal gas or evidence of bowel obstruction. The appendix is not definitely identified although no right lower quadrant inflammatory change is seen. There is mild lumbar spondylosis. IMPRESSION: 1. No CT correlate for the patient's symptoms. Reviewed, dictated and finalized at location A.
[2021-08-12 11:29] LABS: Estimated Glomerular Filt Rate > 60
== END 2021-08-12 11:11 | disposition home or self-care (01) ==
LOC: ANHIMG 11:11
PROVIDERS: PCP Family Medicine; Visit Provider Internal Medicine Gastroenterology
DX: R10.31 Right lower quadrant pain (principal); M47.816 Spondylosis without myelopathy or radiculopathy, lumbar region; Z95.5 Presence of coronary angioplasty implant and graft
CPT/HCPCS: 74177; Q9967

== ENCOUNTER 2021-09-21 13:54 | Outpatient (CLI) | payer BC, MEDICAID, SELFPAY ==
[2021-09-24 06:17] LABS: FSH 96.1 mIU/mL (***)
== END 2021-09-21 13:55 | disposition home or self-care (01) ==
LOC: ANHLAB 13:59
PROVIDERS: Visit Provider Obstetrics & Gynecology
DX: N95.1 Menopausal and female climacteric states (principal)
CPT/HCPCS: 36415; 83001

== ENCOUNTER 2021-10-30 09:53 | Outpatient (CLI) | payer BC, SELFPAY ==
[2021-10-30 10:16] LABS: Basophils Percent Auto 0.4 % (0.2-1.2); Eosinophils Absolute Auto 0.1 K/mm3 (0-0.3); Eosinophils Percent Auto 0.6 % (0-4.4); Hematocrit 39.2 % (37.0-47.0); Hemoglobin 12.1 g/dL (12.0-15.0); Immature Granulocyte Absolute 0.03 K/mm3 (0.00-0.031); Immature Granulocyte Percent A 0.3 % (0-0.5); Lymphocytes Absolute Auto 3.38 K/mm3 (0.9-3.2); Lymphocytes Percent Auto 31.2 % (18.3-44.2); Mean Corpuscular HGB Conc 30.9 g/dl (32-36); Mean Corpuscular Hemoglobin 27.6 pg (26-34); Mean Corpuscular Volume 89.3 fl (80-100); Mean Platelet Volume 8.9 fl (7.4-10.4); Monocytes Percent Auto 8.8 % (2.6-8.5); Neutrophils Absolute Auto 6.4 K/mm3 (1.3-6.7); Neutrophils Percent Auto 58.7 % (45.5-73.1); Platelet Count Result 278 k/mm3 (150-375); Red Blood Count 4.39 M/mm3 (4.2-5.4); Red Cell Distribution Width 15.1 % (11.5-14.5); White Blood Count 10.8 K/mm3 (4.5-10.0)
[2021-10-30 10:25] LABS: Alanine Aminotransferase 68 U/L (6-35); Alkaline Phosphatase 88 U/L (38-126); Anion Gap 3 mmol/L (8-16); Aspartate Amino Transferase 31 U/L (14-36); Bilirubin,Total 0.3 mg/dL (0.2-1.3); Blood Urea Nitrogen 21 mg/dL (7-17); Calcium 8.4 mg/dL (8.4-10.2); Carbon Dioxide 35 mmol/L (22-30); Chloride 102 mmol/L (98-107); Cholesterol 173 mg/dL (0-200); Estimated Glomerular Filt Rate > 60; Glucose 81 mg/dL (65-110); HDL Direct 65 mg/dL; Hemoglobin A1C 6.1 % (<5.7); Potassium 4.3 mmol/L (3.4-5.0); Sodium 140 mmol/L (137-145); Triglycerides 103 mg/dL (<150)
[2021-10-30 10:36] LABS: LDL Cholesterol Direct 56 mg/dL
[2021-11-02 23:10] LABS: Vitamin D 1,25 (OH)2 Total 44 pg/mL (18-72); Vitamin D2 1,25 (OH)2 <8 pg/mL; Vitamin D3 1,25 (OH)2 44 pg/mL
== END 2021-10-30 09:54 | disposition home or self-care (01) ==
LOC: ANHLAB 09:54
PROVIDERS: PCP Family Medicine; Visit Provider Family Medicine
DX: R53.83 Other fatigue (principal); I10 Essential (primary) hypertension; E66.9 Obesity, unspecified; E78.2 Mixed hyperlipidemia
CPT/HCPCS: 36415; 80053; 80061; 82607; 82652; 83036; 84443; 85025

== ENCOUNTER 2021-11-28 11:46 | Emergency (ER) | payer BC, SELFPAY ==
[2021-11-28] VITALS (8 sets, daily range): BP systolic 132–136; BP diastolic 71–84; PULSE 55–67; RESP 14–26; TEMP 36.5; O2SAT 98–100
--- NOTE | ~2021-11-28 | XR_ITS ---
EXAMINATION: XR chest 2V DATE: 11/28/2021 13:57 INDICATION: 2 weeks of cough and shortness of breath TECHNIQUE: PA and lateral views of the chest were obtained. COMPARISON: Chest radiograph dated 12/30/2020 FINDINGS: The lungs remain clear with no focal airspace opacities, pulmonary edema, pleural effusion or pneumot horax. The cardiomediastinal silhouette is normal. Visualized bones and soft tissues are unremarkable . IMPRESSION: 1. No acute cardiopulmonary disease. Reviewed, dictated and finalized at location A.
[2021-11-28 12:34] LABS: SARS-CoV-2 RNA PCR Negative
--- NOTE | 2021-11-28 13:47 | ECG_ITS ---
Measurements Intervals [place] Rate: 59 P: 51 HI: 180 QRS: 4 QRSD: 92 T: -12 QT: 437 QTc: 434 Interpretive Statements SINUS BRADYCARDIA POSSIBLE LEFT ATRIAL ENLARGEMENT LEFT VENTRICULAR HYPERTROPHY BORDERLINE T WAVE ABNORMALITY- ANT/INF LEADS BASELINE ARTIFACT- I, II, III, AVR, AVL, AVF, V1-V2 BORDERLINE ECG Electronically Signed On 11-28-2021 14:45:58 CDT by Austin Heller D.O.
[2021-11-28 14:26] LABS: Basophils Percent Auto 0.4 % (0.2-1.2); Eosinophils Absolute Auto 0.1 K/mm3 (0-0.3); Eosinophils Percent Auto 0.9 % (0-4.4); Hematocrit 40.7 % (37.0-47.0); Hemoglobin 12.4 g/dL (12.0-15.0); Immature Granulocyte Absolute 0.02 K/mm3 (0.00-0.031); Immature Granulocyte Percent A 0.3 % (0-0.5); Lymphocytes Absolute Auto 2.32 K/mm3 (0.9-3.2); Lymphocytes Percent Auto 34.4 % (18.3-44.2); Mean Corpuscular HGB Conc 30.5 g/dl (32-36); Mean Corpuscular Hemoglobin 27.2 pg (26-34); Mean Corpuscular Volume 89.3 fl (80-100); Mean Platelet Volume 9.4 fl (7.4-10.4); Monocytes Absolute Auto 0.5 K/mm3 (0.1-0.6); Neutrophils Absolute Auto 3.8 K/mm3 (1.3-6.7); Platelet Count Result 355 k/mm3 (150-375); Red Blood Count 4.56 M/mm3 (4.2-5.4); Red Cell Distribution Width 15.3 % (11.5-14.5); White Blood Count 6.7 K/mm3 (4.5-10.0)
[2021-11-28 14:38] LABS: Prothrombin Time 12.7 Seconds (11.1-14.7)
[2021-11-28 14:39] LABS: Partial Thromboplastin Time 29.3 SECONDS (22.3-36.8)
[2021-11-28 14:42] LABS: Alanine Aminotransferase 37 U/L (6-35); Albumin Level 4.5 g/dL (3.5-5.1); Alkaline Phosphatase 113 U/L (38-126); Anion Gap 8 mmol/L (8-16); Aspartate Amino Transferase 40 U/L (14-36); Bilirubin,Total 0.4 mg/dL (0.2-1.3); Blood Urea Nitrogen 13 mg/dL (7-17); Calcium 9.1 mg/dL (8.4-10.2); Carbon Dioxide 32 mmol/L (22-30); Chloride 100 mmol/L (98-107); Estimated CRCL calculation 81 ml/min; Estimated Glomerular Filt Rate > 60; Glucose 94 mg/dL (65-110); Lipase 38 U/L (23-300); Potassium 3.7 mmol/L (3.4-5.0); Sodium 140 mmol/L (137-145)
[2021-11-28 14:43] LABS: D Dimer 0.36 ug/mL (<0.48)
[2021-11-28 14:52] LABS: Troponin I < 0.012 ng/mL (0.000-0.034)
--- NOTE | 2021-11-28 15:04 | ED.GENADULT ---
HPI - General Adult General Chief complaint: Upper Respiratory Infection Stated complaint: cough, sob, bodyaches Time Seen by Provider: 11/28/21 13:42 Source: RN notes reviewed History of Present Illness HPI narrative: Patient presents emergency room from home for respiratory infection patient states she is had a cough this been nonproductive for the past 2 weeks. States is associated with pain in her right upper back described as aching and worse with coughing she notes generalized body aches as well. She denies any fevers or chills, rhinorrhea, sore throat, abdominal pain nausea vomiting or any other symptoms. Patient denies having any chest pain Related Data Home Medications Medication Instructions Recorded Confirmed losartan 50 mg tablet 50 mg PO BID 03/22/19 10/29/21 metoprolol succinate 25 mg 25 mg PO DAILY 09/01/19 10/29/21 tablet,extended release 24 hr clopidogrel 75 mg tablet PO DAILY 01/19/21 10/29/21 aspirin 81 mg tablet,delayed 81 mg PO DAILY 10/29/21 10/29/21 release (Adult Aspirin Regimen) atorvastatin 20 mg tablet 20 mg PO QHS 11/02/21 Allergies Allergy/AdvReac Type Severity Reaction Status Date / Time trimethoprim Allergy Severe HIVES, Verified 11/28/21 14:05 RASH, ITCHING sulfamethoxazole Allergy Unknown HIVES, Verified 11/28/21 14:05 RASH, ITCHING naproxen [From Aleve] Allergy Unknown Verified 11/28/21 14:05 Review of Systems Review of Systems: Gen.: Denies fevers or chills ENT: Denies congestion Respiratory: See HPI CV: Denies chest pain or palpitations GI: Denies abdominal pain nausea, emesis Musculoskeletal: reports right upper back pain Neuro: Denies numbness, tingling, weakness or focal weakness Skin: Denies rash Except as documented, all other systems reviewed and negative [facility] Past Medical History Medical History Anxiety Coronary artery disease Coronary artery disease Depression GERD (gastroesophageal reflux disease) GERD (gastroesophageal reflux disease) Hyperlipidemia Hypertension Hypertension Myocardial infarct Recent heart attack Surgical History Surgical History H/O cardiac catheterization History of section History of colonoscopy History of partial hysterectomy History of percutaneous coronary intervention Family History Family History Mother Hypertension Lupus Grandparent Hypertension Hyperlipidemia Mother Hypertension Family history of lupus erythematosus, Onset Age: 59 Grandparent Hypertension, Onset Age: 74 Family history of elevated blood lipids, Onset Age: 74 Social History Social History Social History: Smoking status: Never smoker Second hand tobacco smoke exposure: No Alcohol intake: never Substance use: never Substance use type: does not use Gender identity (if verbalized by the patient): Female Sexual Orientation (if Verbalized by the Patient): Straight or Heterosexual Exam Narrative: APPEARANCE: No acute distress, nontoxic, resting in bed EYES: EOMI HEENT: Normocephalic, atraumatic, OMM RESPIRATORY: No respiratory distress Clear to auscultation bilaterally with no rhonchi rales mild wheezing with coughing only CARDIOVASCULAR: Regular rate and rhythm without murmurs rubs or gallops. ABDOMINAL: Soft, nontender, nondistended, no rebound or guarding MUSCULOSKELETAl: Moves all extremities. No clubbing, cyanosis or edema. Back: No midline thoracic or returns palpation tender palpation of the right upper back in the region of ribs 6 through 8 worse with coughing NEURO: Awake and alert. Following commands, speech normal, no focal deficits SKIN:: Warm, dry. No rashes lesions or abrasions PSYCHIATRIC: Normal affect/mood, Course Course Emergency Course:
[2021-11-28] MEDS: methylPREDNISolone SOD SUCC 125 MG VIAL IV PUSH (15:20)
== END 2021-11-28 15:36 | disposition home or self-care (01) ==
PROVIDERS: Emergency Provider Emergency Medicine; PCP Family Medicine
DX: J06.9 Acute upper respiratory infection, unspecified (principal); Z20.822 Contact with and (suspected) exposure to COVID-19; I25.10 Atherosclerotic heart disease of native coronary artery without angina pectoris; E78.5 Hyperlipidemia, unspecified; I10 Essential (primary) hypertension; I25.2 Old myocardial infarction; K21.9 Gastro-esophageal reflux disease without esophagitis; Z79.82 Long term (current) use of aspirin; Z90.711 Acquired absence of uterus with remaining cervical stump; R00.1 Bradycardia, unspecified; I51.7 Cardiomegaly; R94.31 Abnormal electrocardiogram [ECG] [EKG]
CPT/HCPCS: 36415; 71046; 80053; 83690; 84484; 85025; 85380; 85610; 85730; 93005; 96365; 96375; 99284; C9803; J0131; J2930; U0003; U0005

== ENCOUNTER 2022-06-10 06:51 | Emergency (ER) | payer BC, SELFPAY ==
[2022-06-10] VITALS (7 sets, daily range): BP systolic 110–143; BP diastolic 67–73; PULSE 67–79; RESP 15–18; TEMP 36.8; O2SAT 98–100
--- NOTE | ~2022-06-10 | XR_ITS ---
Clinical Indication: Chest pain PA and lateral views of the chest: Comparison: 11/28/2021 Findings: The lungs are clear, without evidence of focal consolidation or pleural effusion. Cardiome diastinal silhouette is within normal limits. Bones and soft tissues are unremarkable. Impression: Normal chest. Reviewed, dictated and finalized at location . ORATE SAFETY COORDINATOR Impression: Normal chest.
--- NOTE | 2022-06-10 06:58 | ECG_ITS ---
Measurements Intervals [place] Rate: 68 P: 55 MD: 190 QRS: 10 QRSD: 89 T: 13 QT: 402 QTc: 430 Interpretive Statements SINUS RHYTHM POSSIBLE LEFT ATRIAL ENLARGEMENT [-0.1mV P-WAVE IN V1/V2] POSSIBLE RIGHT VENTRICULAR CONDUCTION DELAY [RSR (QR) IN V1/V2] NONSPECIFIC T-WAVE ABNORMALITY COMPARED TO ECG 11/28/2021 14:38:12 NO SIGNIFICANT CHANGE Electronically Signed On 06-10-2022 13:11:06 END PACKER by Dangelo Mendez M.D.
[2022-06-10 07:11] LABS: Basophils Percent Auto 0.7 % (0.2-1.2); Eosinophils Absolute Auto 0.2 K/mm3 (0-0.3); Eosinophils Percent Auto 3.9 % (0-4.4); Hematocrit 39.5 % (37.0-47.0); Hemoglobin 12.3 g/dL (12.0-15.0); Lymphocytes Absolute Auto 2.22 K/mm3 (0.9-3.2); Lymphocytes Percent Auto 37.8 % (18.3-44.2); Mean Corpuscular HGB Conc 31.1 g/dl (32-36); Mean Corpuscular Hemoglobin 27.6 pg (26-34); Mean Corpuscular Volume 88.8 fl (80-100); Mean Platelet Volume 9.3 fl (7.4-10.4); Monocytes Absolute Auto 0.6 K/mm3 (0.1-0.6); Monocytes Percent Auto 10.2 % (2.6-8.5); Neutrophils Absolute Auto 2.8 K/mm3 (1.3-6.7); Neutrophils Percent Auto 47.4 % (45.5-73.1); Platelet Count Result 267 k/mm3 (150-375); Red Blood Count 4.45 M/mm3 (4.2-5.4); Red Cell Distribution Width 14.2 % (11.5-14.5); White Blood Count 5.9 K/mm3 (4.5-10.0)
[2022-06-10 07:22] LABS: Alanine Aminotransferase 35 U/L (6-35); Albumin Level 4.3 g/dL (3.5-5.1); Alkaline Phosphatase 101 U/L (38-126); Anion Gap 7 mmol/L (8-16); Aspartate Amino Transferase 38 U/L (14-36); Bilirubin,Total 0.4 mg/dL (0.2-1.3); Blood Urea Nitrogen 14 mg/dL (7-17); Calcium 8.2 mg/dL (8.4-10.2); Carbon Dioxide 30 mmol/L (22-30); Chloride 99 mmol/L (98-107); Estimated CRCL calculation 81 ml/min; Estimated Glomerular Filt Rate > 60; Glucose 123 mg/dL (65-110); Lipase 59 U/L (23-300); Potassium 3.5 mmol/L (3.4-5.0); Sodium 136 mmol/L (137-145)
[2022-06-10 07:32] LABS: Troponin I < 0.012 ng/mL (0.000-0.034)
--- NOTE | 2022-06-10 07:38 | ED.CHESTPAIN ---
HPI - Chest Pain General Chief Complaint: Chest Pain Stated Complaint: chest pain Time Seen by Provider: 06/10/22 07:38 Source: patient History of Present Illness HPI narrative: 51 years old -[place] female presents with central chest aching pain started while preparing to go to work this morning. Dull aching, no radiation, denies shortness of breath or diaphoresis. Patient denies aggravating or relieving factors but noticed that make impression by her finger on her breast bone causing severe pain. She denies any fever, chills, nausea, vomiting, recent physical activities. History of coronary stents times 06/2018, hypertension, hyperlipidemia patient does not smoke or drink or uses drugs. Strong family history of coronary artery disease. Related Data Home Medications Medication Instructions Recorded Confirmed losartan 50 mg tablet 50 mg PO BID 03/22/19 05/05/22 metoprolol succinate 25 mg 25 mg PO DAILY 09/01/19 05/05/22 tablet,extended release 24 hr clopidogrel 75 mg tablet PO DAILY 01/19/21 05/05/22 aspirin 81 mg tablet,delayed 81 mg PO DAILY 10/29/21 05/05/22 release (Adult Aspirin Regimen) atorvastatin 20 mg tablet 20 mg PO QHS 11/02/21 05/05/22 Allergies Allergy/AdvReac Type Severity Reaction Status Date / Time trimethoprim Allergy Severe HIVES, Verified 05/05/22 10:26 RASH, ITCHING sulfamethoxazole Allergy Unknown HIVES, Verified 06/10/22 07:17 RASH, ITCHING naproxen [From Aleve] Allergy Unknown Verified 06/10/22 07:17 Review of Systems Review of Systems: All systems reviewed & are unremarkable except as noted in HPI and below PMFSH Past Medical History Medical History Anxiety Coronary artery disease Coronary artery disease Depression GERD (gastroesophageal reflux disease) GERD (gastroesophageal reflux disease) Hyperlipidemia Hypertension Hypertension Myocardial infarct Recent heart attack Surgical History Surgical History H/O cardiac catheterization History of section History of colonoscopy History of partial hysterectomy History of percutaneous coronary intervention Family History Family History Mother Hypertension Lupus Grandparent Hypertension Hyperlipidemia Mother Hypertension Family history of lupus erythematosus, Onset Age: 59 Grandparent Hypertension, Onset Age: 74 Family history of elevated blood lipids, Onset Age: 74 Social History Social History Social History: Smoking status: Never smoker Second hand tobacco smoke exposure: No Alcohol intake: never Substance use: never Substance use type: does not use Living arrangements: with family Occupation/Education: occupation Gender identity (if verbalized by the patient): Female Sexual Orientation (if Verbalized by the Patient): Straight or Heterosexual Exam Narrative: General appearance: Well-developed, well-nourished Skin: Normal color Head: Normocephalic, nontraumatic Eyes: Clear conjunctiva ENT: Oropharynx normal, ears normal, nose normal Neck: Supple, nontender Chest and respiratory: Airway patent, no respiratory distress, no accessory muscle use, tenderness sternum with palpation, no bruises, no swelling, no rash Heart: Regular rate/rhythm Abdomen: Soft, nontender, no organomegaly, quiet bowel sounds Vascular: Normal peripheral pulses, normal capillary refill. 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
--- NOTE | 2022-06-10 09:45 | PC.NURSE ---
Addendum entered by Debi Francisco RN 06/10/22 09:48: Correction: Pt only took 81 mg today, will administer the remaining dose Original Note: Pt took full 324 mg of aspirin today
[2022-06-10 09:46] LABS: Partial Thromboplastin Time 30.1 SECONDS (22.3-36.8); Prothrombin Time 12.3 Seconds (11.1-14.7)
[2022-06-10] MEDS: ASPIRIN 81 MG CHEWABLE TABLET 324 MG PO (09:50)
[2022-06-10 09:52] LABS: D Dimer 0.37 ug/mL (<0.48)
[2022-06-10 09:56] LABS: Troponin I < 0.012 ng/mL (0.000-0.034)
--- NOTE | 2022-06-10 09:58 | PC.NURSE ---
Pt requesting to wait about an hour to take the metoprolol that is ordered
[2022-06-10 10:13] LABS: Influenza A QL RT-PCR Negative (Negative); Influenza B QL RT-PCR Negative (Negative); SARS-CoV-2 RNA PCR Negative
--- NOTE | 2022-06-10 11:47 | PC.NURSE ---
This RN called into room, pt states i just want to go home. im tired of waiting. Nothing is happening This RN explained the process of admission. This RN apologized for the delay of getting her a bed but reassured her that she was being taken care of. Pt still asked to leave. AMA forms signed and pt ambulated out of room with no difficulty
== END 2022-06-10 11:51 | disposition left against medical advice (07) ==
LOC: ANHED 09:32 → ANHIMU 12:41
PROVIDERS: Preventive Medicine Aerospace Medicine; Emergency Provider Emergency Medicine; PCP Family Medicine
DX: R07.9 Chest pain, unspecified (principal); Z20.822 Contact with and (suspected) exposure to COVID-19; I10 Essential (primary) hypertension; E78.5 Hyperlipidemia, unspecified; I25.10 Atherosclerotic heart disease of native coronary artery without angina pectoris; I25.2 Old myocardial infarction; K21.9 Gastro-esophageal reflux disease without esophagitis; F41.9 Anxiety disorder, unspecified; F32.A Depression, unspecified; Z95.5 Presence of coronary angioplasty implant and graft; Z79.82 Long term (current) use of aspirin; Z90.711 Acquired absence of uterus with remaining cervical stump; R94.31 Abnormal electrocardiogram [ECG] [EKG]
CPT/HCPCS: 36415; 71046; 80053; 83690; 84484; 85025; 85380; 85610; 85730; 87636; 93005; 99284; A9270

== ENCOUNTER 2022-11-07 15:03 | Outpatient (CLI) | payer BC, SELFPAY ==
--- NOTE | ~2022-11-07 | XR_ITS ---
EXAMINATION: XR chest 2V DATE: 11/07/2022 14:59 INDICATION: Encounter for other preprocedural examination TECHNIQUE: PA and lateral views of the chest are obtained. COMPARISON: 06/10/2022 FINDINGS: The lungs are free of acute opacities. No pleural effusion or pneumothorax. The cardiomedia stinal silhouette is normal. There is mild thoracic spondylosis. There appears to be a coronary arter y stent. IMPRESSION: 1. No acute cardiopulmonary abnormality. Reviewed, dictated and finalized at location B.
[2022-11-07 16:03] LABS: Basophils Percent Auto 0.6 % (0.2-1.2); Eosinophils Absolute Auto 0.3 K/mm3 (0-0.3); Eosinophils Percent Auto 3.4 % (0-4.4); Hematocrit 39.7 % (37.0-47.0); Hemoglobin 12.2 g/dL (12.0-15.0); Immature Granulocyte Absolute 0.02 K/mm3 (0.00-0.031); Immature Granulocyte Percent A 0.3 % (0-0.5); Lymphocytes Absolute Auto 3.04 K/mm3 (0.9-3.2); Lymphocytes Percent Auto 41.9 % (18.3-44.2); Mean Corpuscular HGB Conc 30.7 g/dl (32-36); Mean Corpuscular Hemoglobin 27.1 pg (26-34); Mean Platelet Volume 10.3 fl (7.4-10.4); Monocytes Absolute Auto 0.6 K/mm3 (0.1-0.6); Monocytes Percent Auto 7.7 % (2.6-8.5); Neutrophils Absolute Auto 3.3 K/mm3 (1.3-6.7); Neutrophils Percent Auto 46.1 % (45.5-73.1); Platelet Count Result 312 k/mm3 (150-375); Red Blood Count 4.51 M/mm3 (4.2-5.4); Red Cell Distribution Width 14.7 % (11.5-14.5); White Blood Count 7.3 K/mm3 (4.5-10.0)
[2022-11-07 16:14] LABS: INR 0.9; Prothrombin Time 12.5 Seconds (11.1-14.7)
[2022-11-07 16:15] LABS: Partial Thromboplastin Time 31.1 SECONDS (22.3-36.8)
[2022-11-07 16:17] LABS: Alanine Aminotransferase 43 U/L (6-35); Albumin Level 4.4 g/dL (3.5-5.1); Alkaline Phosphatase 95 U/L (38-126); Anion Gap 1 mmol/L (8-16); Aspartate Amino Transferase 38 U/L (14-36); Bilirubin,Total 0.4 mg/dL (0.2-1.3); Blood Urea Nitrogen 11 mg/dL (7-17); Calcium 8.8 mg/dL (8.4-10.2); Carbon Dioxide 39 mmol/L (22-30); Chloride 100 mmol/L (98-107); Estimated Glomerular Filt Rate > 60; Glucose 86 mg/dL (65-110); Potassium 3.6 mmol/L (3.4-5.0); Sodium 140 mmol/L (137-145)
[2022-11-07 16:23] LABS: Appearance Urine Clear (Clear); Bilirubin Urine Negative (Negative); Blood Urine Negative (Negative); Color Urine Yellow (Yellow); Glucose Urine UA Negative (Negative); Ketones Urine Negative (Negative); Leukocyte Esterase Ur Negative LEU/UL (Negative); Nitrate Urine Negative (Negative); Protein Urine Negative (Negative); Specific Grav Ur 1.018 (1.001-1.035); Urobilinogen Urine 0.2 mg/dL (<2.0)
[2022-11-07 16:31] LABS: Add Urine Microscopic? NO
[2022-11-07 16:56] LABS: Pregnancy On Board Control Positive; Urine Pregnancy Test Negative
[2022-11-07 17:03] LABS: HIV 1/2 Ab P24 Ag Result Negative (Negative)
== END 2022-11-07 15:04 | disposition home or self-care (01) ==
PROVIDERS: PCP Family Medicine; Visit Provider Physician Assistant
DX: Z01.818 Encounter for other preprocedural examination (principal)
CPT/HCPCS: 36415; 71046; 80053; 81003; 81025; 85025; 85610; 85730; 86703; G0432

== ENCOUNTER 2022-12-20 08:31 | Outpatient (CLI) | payer BC, SELFPAY ==
[2022-12-20 09:31] LABS: Hematocrit 39.4 % (37.0-47.0); Mean Corpuscular HGB Conc 30.5 g/dl (32-36); Mean Corpuscular Hemoglobin 27.5 pg (26-34); Mean Corpuscular Volume 90.2 fl (80-100); Mean Platelet Volume 9.9 fl (7.4-10.4); Platelet Count Result 294 k/mm3 (150-375); Red Blood Count 4.37 M/mm3 (4.2-5.4); Red Cell Distribution Width 15.9 % (11.5-14.5); White Blood Count 5.4 K/mm3 (4.5-10.0)
[2022-12-20 09:41] LABS: INR 0.9; Prothrombin Time 12.9 Seconds (11.1-14.7)
[2022-12-20 09:42] LABS: Partial Thromboplastin Time 30.4 SECONDS (22.3-36.8)
[2022-12-20 09:49] LABS: Anion Gap 3 mmol/L (8-16); Blood Urea Nitrogen 11 mg/dL (7-17); Calcium 8.8 mg/dL (8.4-10.2); Carbon Dioxide 33 mmol/L (22-30); Chloride 101 mmol/L (98-107); Estimated Glomerular Filt Rate > 60; Glucose 92 mg/dL (65-110); Potassium 4.4 mmol/L (3.4-5.0); Sodium 137 mmol/L (137-145)
== END 2022-12-20 08:32 | disposition home or self-care (01) ==
PROVIDERS: PCP Family Medicine; Visit Provider Family Medicine
DX: Z01.818 Encounter for other preprocedural examination (principal)
CPT/HCPCS: 36415; 80048; 85027; 85610; 85730

== ENCOUNTER 2023-03-27 07:45 | Outpatient (CLI) | payer BC, SELFPAY ==
--- NOTE | ~2023-03-27 | MMUS_ITS ---
EXAMINATION: MM diagnostic dania BI w betsy, US breast LT limited HISTORY: Lower inner quadrant breast lump (not felt by patient today) TECHNIQUE: Additional 3-D tomosynthesis images of were performed and synthetic 2-D images were genera [place]. CAD analysis was submitted and interpreted. COMPARISON: 06/05/2021, 12/12/2017bilateral screening mammograms BREAST PARENCHYMAL COMPOSITION: There are scattered areas of fibroglandular density. MAMMOGRAM FINDINGS: No suspicious mass or architectural distortion, malignant calcification, skin thi ckening or retraction or significant new or developing density is detected. LOWER INNER QUADRANT ULTRASOUND: No suspicious mass or shadowing, cyst or other significant sonograph ic abnormalities detected in the lower inner quadrant of the left breast. IMPRESSION: 1. No evidence of malignancy 2. Routine mammographic screening is recommended BI-RADS Category 1: Negative Reviewed, dictated and finalized at location A. E HISTORIAN IMPRESSION: 1. No evidence of malignancy 2. Routine mammographic screening is recommended BI-RADS Category 1: Negative
== END 2023-03-27 07:46 ==
LOC: MICIMG 07:46
PROVIDERS: PCP Physician Assistant; Visit Provider Physician Assistant
DX: N64.4 Mastodynia (principal)
CPT/HCPCS: 76642; 77062; 77066; G0279

== ENCOUNTER 2023-05-09 08:48 | Outpatient (CLI) | payer BC, SELFPAY ==
[2023-05-09 09:21] LABS: Rheumatoid Factor < 12.0 IU/ML (<12)
[2023-05-12 08:35] LABS: ANA Cascade Screen Negative (Negative)
== END 2023-05-09 08:49 | disposition home or self-care (01) ==
LOC: ANHLAB 08:50
PROVIDERS: PCP Family Medicine; Visit Provider Physician Assistant
DX: M25.50 Pain in unspecified joint (principal)
CPT/HCPCS: 36415; 86038; 86225; 86235; 86364; 86430

== ENCOUNTER 2023-08-10 12:32 | Outpatient (CLI) | payer BC, SELFPAY ==
--- NOTE | ~2023-08-10 | US_ITS ---
Pelvic ultrasound. Clinical History: Pelvic pain Technique: Realtime transabdominal and transvaginal scanning of the pelvis was performed. Color flow Doppler and Doppler spectral analysis were performed. Findings: The uterus is absent, compatible prior hysterectomy. Neither ovary visualized. No adnexal mass seen.. There is no evidence of free fluid in the cul de sac. Impression: No significant abnormality seen. Status post hysterectomy and presumed bilateral oophorectomy. Correl ate with surgical history. Reviewed, dictated and finalized at location M. Impression: No significant abnormality seen. Status post hysterectomy and presumed bilatera l oophorectomy. Correlate with surgical history.
== END 2023-08-10 12:33 | disposition home or self-care (01) ==
LOC: ANHIMG 12:35
PROVIDERS: PCP Family Medicine; Visit Provider Obstetrics & Gynecology
DX: R10.2 Pelvic and perineal pain (principal)
CPT/HCPCS: 76830; 76856

== ENCOUNTER 2023-08-14 16:41 | Outpatient (CLI) | payer BC, SELFPAY ==
[2023-08-14 17:37] LABS: Influenza A QL RT-PCR Negative (Negative); Influenza B QL RT-PCR Negative (Negative); RSV RNA, RT-PCR Negative (Negative); SARS-CoV-2 RNA PCR Negative (Negative)
== END 2023-08-14 16:42 | disposition home or self-care (01) ==
LOC: ANHLAB 16:42
PROVIDERS: PCP Family Medicine; Visit Provider Physician Assistant
DX: J02.9 Acute pharyngitis, unspecified (principal); Z20.822 Contact with and (suspected) exposure to COVID-19
CPT/HCPCS: 87637

== ENCOUNTER 2023-08-18 07:26 | Emergency (ER) | payer BC, SELFPAY ==
--- NOTE | ~2023-08-18 | XR_ITS ---
Clinical Indication: Cough PA and lateral views of the chest: Comparison: None Findings: The lungs are clear, without evidence of focal consolidation or pleural effusion. Cardiome diastinal silhouette is within normal limits. Bones and soft tissues are unremarkable. Impression: Normal chest. Reviewed, dictated and finalized at location . Impression: Normal chest.
[2023-08-18 07:31] VITALS: BP 156/73; PULSE 95; RESP 18; O2SAT 95
[2023-08-18 07:34] VITALS: TEMP 37.1
--- NOTE | 2023-08-18 07:44 | PC.NURSE ---
pt is refusing EKG, line, labs, and covid/flu/RSV swab patient reported these are not necessary
--- NOTE | 2023-08-18 08:31 | ED.SOB ---
HPI - SOB/Dyspnea General Chief Complaint: Shortness of Breath/Dyspnea Stated Complaint: Cough, SOB Time Seen by Provider: 08/18/23 07:58 Source: patient Mode of arrival: ambulatory Limitations: no limitations History of Present Illness HPI Narrative: 52-year-old with a history of CAD, hypertension here with complaints of cold, congestion, cough for past 4 days. Patient states that she has seen a primary doctor was given inhalers and nasal spray she denies any fever chest pain. She thinks she may have COPD. MD elicited complaint: shortness of breath and cough Onset (ago): day(s) (4) Timing: constant Severity: moderate Relieving factors: nothing Associated symptoms: denies other symptoms Related Data Home oxygen amount: none Home Medications Medication Instructions Recorded Confirmed metoprolol succinate 25 mg 25 mg PO DAILY 09/01/19 08/15/23 tablet,extended release 24 hr clopidogrel 75 mg tablet PO DAILY 01/19/21 08/15/23 aspirin 81 mg tablet,delayed 81 mg PO DAILY 10/29/21 08/15/23 release (Adult Aspirin Regimen) atorvastatin 20 mg tablet 40 mg PO QHS 01/12/23 08/15/23 cholecalciferol (vitamin D3) 10 10 mcg PO DAILY 01/12/23 08/15/23 mcg (400 unit) capsule cyanocobalamin (vitamin B-12) 1,000 mcg PO DAILY 01/12/23 08/15/23 1,000 mcg capsule Allergies Allergy/AdvReac Type Severity Reaction Status Date / Time trimethoprim Allergy Severe HIVES, Verified 08/18/23 07:33 RASH, ITCHING sulfamethoxazole Allergy Unknown HIVES, Verified 08/18/23 07:33 RASH, ITCHING naproxen [From Aleve] Allergy Unknown Verified 08/18/23 07:33 Review of Systems Review of Systems: All systems reviewed & are unremarkable except as noted in HPI and below Constitutional: Constitutional: Reports no additional constitutional complaints Eyes: Eyes: Reports no additional eye complaints ENT: Reports system reviewed and no additional complaints, except as documented Cardiovascular: Cardiovascular: Reports no additional cardiovascular complaints Respiratory: Respiratory: Reports as per HPI Gastrointestinal: Gastrointestinal: Reports no additional gastrointestinal complaints Musculoskeletal: Musculoskeletal: Reports no additional musculoskeletal complaints PMFSH Past Medical History Medical History Anxiety Coronary artery disease Coronary artery disease Depression GERD (gastroesophageal reflux disease) GERD (gastroesophageal reflux disease) Hyperlipidemia Hypertension Hypertension Myocardial infarct Recent heart attack Surgical History Surgical History H/O cardiac catheterization History of section History of colonoscopy History of partial hysterectomy History of percutaneous coronary intervention Family History Family History Mother Hypertension Lupus Family history of lupus erythematosus Grandparent Hypertension Hyperlipidemia Family history of elevated blood lipids Father No problems noted. Sibling No problems noted. Social History Social History Social History: Smoking status: Never smoker Second hand tobacco smoke exposure: No Alcohol intake: never Substance use: never Substance use type: does not use Lack of Transportation: No Lack of Food: Never True Current Housing: I Have Housing Concerned About Future Housing: No Difficulty Paying Gas/Electric Bills: No Difficulty Paying for Meds: No Currently Unemployed: No Education: Decline to Answer Difficulty w/ Childcare or Family Care: No Living arrangements: with family Occupation/Education: occupation Gender identity (if verbalized by the patient): Female Sexual Orientation (if Verbalized by the Patient): Straight or Heterosexual Exam Narrative: GENERAL: Well-appearing, well-nourished, and in no acute distress. HEAD: Normocephalic, atraumatic. EYES: PERRLA and EOMI. ENT: Nares clear, no rhinorrhea or epistaxis. Mucous membranes moist. NECK: Supple. CHEST: Clear to auscultation. No respiratory distress. HEART: Regular rate and rhythm. No murmur heard. Normal peripheral pulses. ABDOMEN: Soft, nontender, nondistended, normal active bowel sounds. EXTREMITIES: Normal range of motion. No edema. SKIN: Warm, dry, no rash. NEURO: No focal deficits. Alert and oriented x3. PSYCH: Normal mood and affect. Course Course Emergency Course: Patient comfortably sitting on the chair in no discomfort. Informed her about her lab work, chest x-ray findings. Advised to continue home medications Vital Signs Vital signs: Vital Signs Pulse Rate 95 08/18/23 07:31 Respiratory Rate 18 08/18/23 07:31 Blood Pressure 156/73 H 08/18/23 07:31 Pulse Oximetry 95 08/18/23 07:31 Oxygen Delivery Room Air 08/18/23 07:31 Temperature 37.1 C 08/18/23 07:34 Pulse Rate 95 08/18/23 07:31 Respiratory Rate 18 08/18/23 07:31 Blood Pressure 156/73 H 08/18/23 07:31 Pulse Oximetry 95 08/18/23 07:31 Oxygen Delivery Room Air 08/18/23 07:31 MDM - SOB/Dyspnea Medical Records Attestation: I reviewed the patient's medical records. Lab Data Attestation: I reviewed the patient's lab results. Imaging Data Radiologist's impression: ITS Impressions Chest X-Ray 08/18/23 08:28 Impression: Normal chest. Discharge Plan Discharge Clinical Impression: Acute bronchitis, viral Patient Disposition: Home, Self-Care Condition: Stable Instructions: Acute Bronchitis (ED) Additional Instructions: Continue home medications, follow with your doctor you Prescriptions: No Action nitroglycerin 0.4 mg tablet, sublingual 0.4 mg sublingual Q5MIN PRN (Reason: Chest Pain) Qty: 60 0RF aspirin [Adult Aspirin Regimen] 81 mg tablet,delayed release (DR/EC) 81 mg PO DAILY cholecalciferol (vitamin D3) 10 mcg (400 unit) capsule 10 mcg PO DAILY cyanocobalamin (vitamin B-12) 1,000 mcg capsule 1,000 mcg PO DAILY benzonatate 100 mg capsule 200 mg PO TID PRN (Reason: cough) Qty: 60 0RF dexamethasone 4 mg tablet 4 mg PO .COMPLEX Qty: 24 0RF Rx Instructions: 4 mg orally; 1 and a half tabs BID x4days, then 1 tab BID x 4 days, then half tab BID x 4 days albuterol sulfate 90 mcg/actuation HFA aerosol inhaler 1 inh inhalation Q4H PRN (Reason: shortness of breath or wheezing) Qty: 6.7 0RF fluticasone propionate 50 mcg/actuation spray,suspension 1 spray intranasal DAILY Qty: 16 0RF Rx Instructions: administer into each nostril metoprolol succinate 25 mg tablet extended release 24 hr 25 mg PO DAILY clopidogrel 75 mg tablet PO DAILY lidocaine 5 % adhesive patch,medicated 1 patch topical DAILY Qty: 15 0RF Rx Instructions: leave on most painful area for up to 12 hrs valacyclovir [Valtrex] 500 mg tablet 500 mg PO DAILY Qty: 100 0RF Rx Instructions: Take 1 tablet daily for suppression and take 1 tablet BID x 3 days for outbreaks. escitalopram oxalate 20 mg tablet 20 mg PO DAILY Qty: 60 1RF atorvastatin 20 mg tablet 40 mg PO QHS losartan 50 mg tablet 50 mg PO BID Qty: 180 1RF bupropion HCl 150 mg tablet extended release 24 hr See Rx Instructions .ROUTE .COMPLEX Qty: 60 1RF Dose Instruction: TAKE 1 TABLET BY MOUTH ONCE DAILY IN THE MORNING Rx Instructions: TAKE 1 TABLET BY MOUTH ONCE DAILY IN THE MORNING felodipine 5 mg tablet extended release 24 hr 5 mg PO DAILY Qty: 90 1RF Follow-up/Referrals: Melisa Clements MD [Primary Care Provider] - Time of Disposition: 09:27
[2023-08-18 09:03] LABS: Basophils Percent Auto 0.2 % (0.2-1.2); Hematocrit 38.5 % (37.0-47.0); Hemoglobin 11.9 g/dL (12.0-15.0); Immature Granulocyte Absolute 0.04 K/mm3 (0.00-0.031); Immature Granulocyte Percent A 0.4 % (0-0.5); Lymphocytes Absolute Auto 2.13 K/mm3 (0.9-3.2); Lymphocytes Percent Auto 23.8 % (18.3-44.2); Mean Corpuscular HGB Conc 30.9 g/dl (32-36); Mean Corpuscular Hemoglobin 26.6 pg (26-34); Mean Corpuscular Volume 86.1 fl (80-100); Mean Platelet Volume 9.9 fl (7.4-10.4); Monocytes Absolute Auto 0.7 K/mm3 (0.1-0.6); Monocytes Percent Auto 7.7 % (2.6-8.5); Neutrophils Absolute Auto 6.1 K/mm3 (1.3-6.7); Neutrophils Percent Auto 67.9 % (45.5-73.1); Platelet Count Result 273 k/mm3 (150-375); Red Blood Count 4.47 M/mm3 (4.2-5.4); Red Cell Distribution Width 15.3 % (11.5-14.5); White Blood Count 8.9 K/mm3 (4.5-10.0)
[2023-08-18 09:13] LABS: Atypical Lymphocytes Present; Hypochromasia 1+; Platelet Estimate Adequate (Adequate); Schistocytes None Seen
[2023-08-18 09:16] LABS: Alanine Aminotransferase 51 U/L (6-35); Albumin Level 4.4 g/dL (3.5-5.1); Alkaline Phosphatase 89 U/L (38-126); Anion Gap 6 mmol/L (4-12); Aspartate Amino Transferase 46 U/L (14-36); Bilirubin,Total 0.4 mg/dL (0.2-1.3); Blood Urea Nitrogen 12 mg/dL (7-17); Calcium 8.5 mg/dL (8.4-10.2); Carbon Dioxide 28 mmol/L (22-30); Chloride 104 mmol/L (98-107); Estimated CRCL calculation 90 ml/min; Estimated Glomerular Filt Rate > 60; Glucose 97 mg/dL (65-110); Potassium 3.6 mmol/L (3.4-5.0); Sodium 138 mmol/L (137-145)
== END 2023-08-18 09:35 | disposition home or self-care (01) ==
PROVIDERS: Emergency Medicine; Emergency Provider Family Medicine; PCP Family Medicine
DX: J20.8 Acute bronchitis due to other specified organisms (principal); I25.10 Atherosclerotic heart disease of native coronary artery without angina pectoris; I10 Essential (primary) hypertension; E78.5 Hyperlipidemia, unspecified; I25.2 Old myocardial infarction; Z90.711 Acquired absence of uterus with remaining cervical stump; Z79.82 Long term (current) use of aspirin
CPT/HCPCS: 36415; 71046; 80053; 85025; 99283

== ENCOUNTER 2023-08-21 20:17 | Emergency (ER) | payer BC, SELFPAY ==
--- NOTE | 2023-08-21 20:29 | PC.NURSE ---
rubina Khan pg cp, bnp, covid swab
--- NOTE | 2023-08-21 20:40 | PC.NURSE ---
1st call for triage, no answer
--- NOTE | 2023-08-21 20:46 | PC.NURSE ---
2nd call for triage, no answer
--- NOTE | 2023-08-21 21:03 | PC.NURSE ---
2nd call for radiology, no answer.
== END 2023-08-21 20:40 | disposition left against medical advice (07) ==
LOC: ANHED 21:09
PROVIDERS: PCP Family Medicine
DX: Z53.21 Procedure and treatment not carried out due to patient leaving prior to being seen by health care provider (principal)
CPT/HCPCS: 99199

== ENCOUNTER 2023-09-26 16:23 | Outpatient (CLI) | payer BC, SELFPAY ==
[2023-09-26 17:19] LABS: Alanine Aminotransferase 82 U/L (6-35); Aspartate Amino Transferase 47 U/L (14-36)
== END 2023-09-26 16:24 | disposition home or self-care (01) ==
PROVIDERS: PCP Family Medicine; Visit Provider Family Medicine
DX: R74.8 Abnormal levels of other serum enzymes (principal); R79.89 Other specified abnormal findings of blood chemistry
CPT/HCPCS: 36415; 84450; 84460

== ENCOUNTER 2023-11-04 08:17 | Emergency (ER) | payer BC, SELFPAY ==
--- NOTE | ~2023-11-04 | XR_ITS ---
EXAMINATION: XR shoulder LT min 2V DATE: 11/04/2023 08:54 INDICATION: Left shoulder lump. TECHNIQUE: 5 views of left shoulder were obtained. COMPARISON: None. FINDINGS: Bone alignment is normal. No fracture. There is mild osteoarthritis of glenohumeral joint a nd acromioclavicular joint. IMPRESSION: 1. Polyarticular osteoarthritis. Reviewed, dictated and finalized at location A.
[2023-11-04 08:26] VITALS: BP 139/87; PULSE 65; RESP 17; O2SAT 100
--- NOTE | 2023-11-04 09:54 | ED.EXTPRO ---
HPI - Extremity Problem General Chief complaint: Extremity Problem,Nontraumatic Stated complaint: L SHOULDER PAIN NO KNOWN INJURY Time Seen by Provider: 11/04/23 08:28 History of Present Illness HPI Narrative: patient is a 53-year-old female who presents ER with left shoulder pain. Worsening over last couple days. Unable to move it today. She thinks she has been sleeping on it wrong as she usually sleeps on her left side. No numbness or tingling. Has difficulty with with reaching out in front of for or performing abduction. will with no alleviating factors. No known trauma. Related Data Home Medications Medication Instructions Recorded Confirmed metoprolol succinate 25 mg 25 mg PO DAILY 09/01/19 09/26/23 tablet,extended release 24 hr clopidogrel 75 mg tablet PO DAILY 01/19/21 09/26/23 aspirin 81 mg tablet,delayed 81 mg PO DAILY 10/29/21 09/26/23 release (Adult Aspirin Regimen) atorvastatin 20 mg tablet 40 mg PO QHS 01/12/23 09/26/23 cholecalciferol (vitamin D3) 10 10 mcg PO DAILY 01/12/23 09/26/23 mcg (400 unit) capsule cyanocobalamin (vitamin B-12) 1,000 mcg PO DAILY 01/12/23 09/26/23 1,000 mcg capsule Allergies Allergy/AdvReac Type Severity Reaction Status Date / Time trimethoprim Allergy Severe HIVES, Verified 11/04/23 08:25 RASH, ITCHING sulfamethoxazole Allergy Unknown HIVES, Verified 11/04/23 08:25 RASH, ITCHING naproxen [From Aleve] Allergy Unknown Verified 11/04/23 08:25 Review of Systems Constitutional: Constitutional: Reports no additional constitutional complaints Cardiovascular: Cardiovascular: Reports no additional cardiovascular complaints Musculoskeletal: Musculoskeletal: Reports arthralgias, Denies joint swelling and Denies muscle cramps PMFSH Past Medical History Medical History Anxiety Coronary artery disease Coronary artery disease Depression GERD (gastroesophageal reflux disease) GERD (gastroesophageal reflux disease) Hyperlipidemia Hypertension Hypertension Myocardial infarct Recent heart attack Surgical History Surgical History H/O cardiac catheterization History of section History of colonoscopy History of partial hysterectomy History of percutaneous coronary intervention Family History Family History Mother Hypertension Lupus Family history of lupus erythematosus Grandparent Hypertension Hyperlipidemia Family history of elevated blood lipids Father No problems noted. Sibling No problems noted. Social History Social History Social History: Smoking status: Never smoker Second hand tobacco smoke exposure: No Alcohol intake: never Substance use: never Substance use type: does not use Lack of Transportation: No Lack of Food: Never True Current Housing: I Have Housing Concerned About Future Housing: No Difficulty Paying Gas/Electric Bills: No Difficulty Paying for Meds: No Currently Unemployed: No Education: Decline to Answer Difficulty w/ Childcare or Family Care: No Living arrangements: with family Occupation/Education: occupation Gender identity (if verbalized by the patient): Female Sexual Orientation (if Verbalized by the Patient): Straight or Heterosexual Exam Narrative: GENERAL: Well-appearing, well-nourished, and in no acute distress. HEAD: Normocephalic, atraumatic. NECK: Supple. mild tenderness left trapezius musculature without discernible spasm. CHEST: Clear to auscultation. No respiratory distress. HEART: Regular rate and rhythm. Normal peripheral pulses. EXTREMITIES: Left shoulder with tenderness anterior joint line. External rotation normal. Has increased pain with forward flexion and attempts of abduction. Normal peripheral pulses
--- NOTE | 2023-11-04 10:01 | PC.NURSE ---
Pt ambulated to nurses station asking for discharge paperwork. This RN told pt she has not been discharged yet, the provider will go over results with her shortly. Pt then ambulated down the hallway, and out the ambulance entrance.
== END 2023-11-04 10:00 | disposition home or self-care (01) ==
PROVIDERS: Emergency Provider Emergency Medicine; PCP Family Medicine
DX: M19.012 Primary osteoarthritis, left shoulder (principal); I25.10 Atherosclerotic heart disease of native coronary artery without angina pectoris; E78.5 Hyperlipidemia, unspecified; I10 Essential (primary) hypertension; I25.2 Old myocardial infarction
CPT/HCPCS: 73030; 99283

== ENCOUNTER 2023-12-21 09:35 | Outpatient (CLI) | payer BC, SELFPAY ==
--- NOTE | ~2023-12-21 | US_ITS ---
EXAMINATION: US pelvic complete w TV DATE: 12/21/2023 12:00 INDICATION: Pelvic and perineal pain. TECHNIQUE: Multiple transabdominal and transvaginal sonographic images of the pelvis were obtained. COMPARISON: Ultrasound 08/10/2023, CT abdomen and pelvis 08/12/2021 FINDINGS: TRANSABDOMINAL ULTRASOUND: The uterus is absent. There is no free fluid in the pelvis. TRANSVAGINAL ULTRASOUND: The ovaries are not visualized. IMPRESSION: 1. Hysterectomy. 2. Ovaries not visualized. Reviewed, dictated and finalized at location A.
== END 2023-12-21 09:36 | disposition home or self-care (01) ==
PROVIDERS: PCP Family Medicine; Visit Provider Nurse Practitioner Obstetrics & Gynecology
DX: R10.2 Pelvic and perineal pain (principal)
CPT/HCPCS: 76830; 76856

== ENCOUNTER 2024-02-22 09:01 | Outpatient (CLI) | payer BC, SELFPAY ==
[2024-02-22 09:58] LABS: Alanine Aminotransferase 44 U/L (6-35); Albumin Level 4.4 g/dL (3.5-5.1); Alkaline Phosphatase 113 U/L (38-126); Anion Gap 6 mmol/L (4-12); Aspartate Amino Transferase 39 U/L (14-36); Bilirubin,Total 0.3 mg/dL (0.2-1.3); Blood Urea Nitrogen 11 mg/dL (7-17); Calcium 8.9 mg/dL (8.4-10.2); Carbon Dioxide 31 mmol/L (22-30); Chloride 101 mmol/L (98-107); Cholesterol 153 mg/dL (0-200); Estimated Glomerular Filt Rate > 60; Glucose 106 mg/dL (65-110); HDL Direct 68 mg/dL; Potassium 4.6 mmol/L (3.4-5.0); Sodium 138 mmol/L (137-145); Triglycerides 72 mg/dL (<150)
[2024-02-22 10:09] LABS: LDL Cholesterol Direct 52 mg/dL
[2024-02-22 10:11] LABS: Hemoglobin A1C 6.2 % (<5.7)
== END 2024-02-22 09:02 | disposition home or self-care (01) ==
PROVIDERS: PCP Family Medicine; Visit Provider Family Medicine
DX: I10 Essential (primary) hypertension (principal); E78.2 Mixed hyperlipidemia; R73.09 Other abnormal glucose; F50.89 Other specified eating disorder; R63.5 Abnormal weight gain
CPT/HCPCS: 36415; 80053; 80061; 83036; 84443

== ENCOUNTER 2024-05-29 08:43 | Outpatient (CLI) | payer MEDICARE, BC, MEDICAID, SELFPAY ==
--- OUTSIDE RECORDS SUMMARY | 2024-05-29 09:08 | XMS_ITS | Patient Health Summary ---
Author Organization [facility] Address [address] [place] [address] Care Team Providers Care Telecommunications Administrator Name Role Phone Jigar Navarro MD Primary Care Provider [phone] Note from [facility],non-owned Affiliates and Associated Physician Practices is amultiple site organization consisting of ambulatory clinics and hospital sitesin [place], [place], [place] and [place]. This disclosure is being madepursuant to the Care Everywhere program and may not contain all information available regarding this patient. Last updated 18.[facility] Allergies * Naproxen(Rash) -Medium Criticality Medications * Be aware that medications may not be up to date on this document. Alwaysverify current medications with the patient. * hydroCHLOROthiazide (HYDRODIURIL) 50 MG tablet Take 50 mg by mouth * ibuprofen (MOTRIN) 600 MG tablet(Started 10/25/2017) Take 1 tablet by mouth every 6 hours as needed for Pain * oxyCODONE-acetaminophen (PERCOCET) 5-325 MG tablet(Started 10/25/2017) Take 1 tablet by mouth every 6 hours as needed for Pain * ondansetron (ZOFRAN) 4 MG tablet(Started 10/25/2017) Take 1 tablet by mouth every 6 hours as needed for Nausea/Vomiting * metoclopramide (REGLAN) 10 MG tablet(Started 10/25/2017) Take 1 tablet by mouth 3 times daily before meals * metroNIDAZOLE (FLAGYL) 500 MG tablet(Started 11/16/2017) Take 1 tablet by mouth 2 times daily * fluconazole (DIFLUCAN) 200 MG tablet(Started 05/08/2018) Take 1 tablet by mouth on days 1,4, and 7. * aspirin (ASPIRIN) 81 MG tablet Take 81 mg by mouth once daily * atorvastatin (LIPITOR) 40 MG tablet(Started 06/19/2018) Take 40 mg by mouth once daily * ticagrelor (BRILINTA) 90 MG tablet(Started 06/19/2018) Take 90 mg by mouth once daily * escitalopram (LEXAPRO) 10 MG tablet(Started 10/05/2018) Take 10 mg by mouth once daily * metoprolol succinate XL 24hr (TOPROL XL) 25 MG tablet(Started 09/16/2018) Take 25 mg by mouth once daily * ramipril (ALTACE) 5 MG capsule(Started 09/16/2018) Take 5 mg by mouth once daily Active Problems Problem Noted Date Diagnosed Date Adenomyosis 11/03/2017 S/P laparoscopic hysterectomy 10/25/2017 Social History Tobacco Use Types Packs/Day Years Used Date Smoking Tobacco: Never Smokeless Tobacco: Never Alcohol Use Standard Drinks/Week Comments No 0 (1 standard drink = 0.6 oz pur e alcohol) Sex and Gender Information Value Date Recorded Sex Assigned at Not on file Gender Identity Not on file Sexual Orientation Not on file Last Filed Vital Signs Vital Sign Reading Time Taken Comments Blood Pressure 140/70 10/16/2018 11:34 AM CDT Pulse 71 10/26/2017 8:31 AM CDT Temperature 36.9 ??C (98.5 ??F) 10/26/2017 8:31 AM CD T Respiratory Rate 16 10/26/2017 8:31 AM CDT Oxygen Saturation 100% 10/26/2017 8:31 AM CDT Inhaled Oxygen Concentration - - Weight 87.7 kg (193 lb 6.4 oz) 10/16/2018 11:34 AM CDT Height 167.6 cm (5' 6 ) 10/16/2018 11:34 AM CDT Body Mass Index 31.22 10/16/2018 11:34 AM CDT Procedures * CULTURE URINE(Performed 11/17/2017) Performed for Adenomyosis * APHERESIS/TRANSFUSION ORDER(Performed 10/27/2017) * CARDIAC RHYTHM STRIP ORDER(Performed 10/27/2017) * PATHOLOGY TISSUE EXAM (STL)(Performed 10/25/2017) Performed for Diagnosis unknown * ENDOTRACHEAL TUBE NOTE(Performed 10/25/2017) * LAPAROSCOPIC APPENDECTOMY(Performed 10/25/2017) Performed for Diagnosis unknown * CYSTOSCOPY WITH HYDRODISTENSION BLADDER(Performed 10/25/2017) Performed for Diagnosis unknown * HYSTERECTOMY TOTAL LAPAROSCOPIC WITH SALPINGECTOMY AND/OR OOPHORECTOMY (Performed 10/25/2017) Performed for Diagnosis unknown * LAPAROSCOPIC FULGURATION/EXCISION LESION PELVIC/OVARY (LASER)(Performed 10/25/2017) Performed for Diagnosis unknown * HCG URINE QUALITATIVE - POCT (IP) INTERFACED(Performed 10/25/2017) * HCG URINE QUAL POCT NOTIFICATION(Performed 10/25/2017) Performed for Preoperative examination * BLOOD TYPE VERIFICATION(Performed 10/17/2017) * TYPE + SCREEN PANEL(Performed 10/17/2017) Performed for Pre-op testing * CBC W AUTO DIFFERENTIAL(Performed 10/17/2017) Performed for Pre-op testing * CULTURE URINE(Performed 04/18/2017) * CHLAMYDIA + GC AMPLIFIED PROBE(Performed 04/18/2017) Results * CULTURE URINE (11/17/2017 12:00 AM CDT) Only the most recent of2 resultswithin the time period is included. Urine Culture Routine Final report [facility] INSURANCE BILL Result 1 [facility] INSURANCE BILL Comment: Mixed urogenital yojana Less than 10,000 colonies/mL Urine URINE SPECIMEN FROM URINARY BLADDER / Unknown 11/17/2017 11/17/2017 Narrative Resulting Agency [facility] [address] ??Critical access hospital [phone] Cesar Blevins Jr., MD LAB - MICROBIOLO GY ORDERABLES [facility] INSURANCE BILL [address] [place] [address] * APHERESIS/TRANSFUSION ORDER (10/27/2017 6:39 PM CDT) Narrative 10/27/2017 6:39 PM CDT Ordered by an unspecified provider. Scanned Document NURSING - VITAL SIGN S AND ASSESSMENT * CARDIAC RHYTHM STRIP ORDER (10/27/2017 6:37 PM CDT) Narrative 10/27/2017 6:37 PM CDT Ordered by an unspecified provider. Scanned Document CARDIAC SERVICES ORD ERABLES * GROSS + MICRO EXAM (STL) (10/25/2017 9:07 AM CDT) Case Report Surgical Pathology Report ? Case: [id number] ? Authorizing Provider: ??Cesar Blevins Jr., MD ?? Collected: ? 10/25/2017 09:07 AM ? Ordering Location: ? [facility] ? Received: ?10/25/2017 12:23 PM ? Pathologist: ? Luis Alberto, Lisa, ? Specimens: ?? A) - Cul De Sac , right anterior cul de sac ? B) - Cul De Sac , middle anterior cul de sac ? C) - Adhesions, ANTERIOR RECTAL ADHESION ? D) - Cul De Sac , middle posterior cul de sac ? E) - Ligament, RIGHT UTEROSACRAL LIGAMENT ? F) - Cul De Sac , right posterior cul de sac ? G) - Tissue, RIGHT SHEILA-UTERINE ? H) - Fossa, RIGHT OVARIAN FOSSA ? I) - Cul De Sac , CUL DE SAC ADHESIONS ? J) - Cul De Sac , LEFT POSTERIOR CUL DE SAC ? K) - Ligament, LEFT UTEROSACRAL LIGAMENT ? L) - Fossa, LEFT OVARIAN FOSSA ? M) - Appendix, APPENDIX ? N) - Ovary with Tube, left ovary and tube ? O) - Fallopian Tube, right ? P) - Uterus w Cervix ? 10/26/2017 1:56 PM CDT [facility] Final Diagnosis 1. Posterior cul de sac, biopsy: -- No pathologic diagnosis 2. Middle anterior cul de sac, biopsy: -- No pathologic diagnosis 3. Anterior rectal lesion, biopsy: -- No pathologic diagnosis 4. Middle posterior cul de sac, biopsy: -- No pathologic diagnosis 5. Right uterosacral ligament, biopsy: -- No pathologic diagnosis 6. Right posterior cul de sac, biopsy: -- No pathologic diagnosis 7. Right parauterine, biopsy: -- No pathologic diagnosis 8. Right ovarian fossa, biopsy: -- No pathologic diagnosis 9. Cul de sac adhesions, biopsy: -- No pathologic diagnosis 10. Left posterior cul de sac, biopsy: -- No pathologic diagnosis 11. Left uterosacral ligament, biopsy: -- No pathologic diagnosis 12. Left ovarian fossa, biopsy: -- No pathologic diagnosis 13. Appendix, appendectomy: -- Fibrous obliteration of the appendiceal lumen -- No evidence of endometriosis 14. Left ovary and fallopian tubes, salpingoophorectomy: -- No pathologic diagnosis 15. Right fallopian tube, salpingectomy: -- No pathologic diagnosis 16. Uterus with cervix, hysterectomy: -- Cervix: Mild chronic cervicitis, negative for dysplasia -- Endometrium: Weakly proliferative with no pathologic diagnosis -- Myometrium: Adenomyosis -- Uterine serosa: No pathologic diagnosis GASTON/rossy 10/26/2017 1:56 PM T [facility] Gross Description The specimens are received fixed in formalin in sixteen containers. All sixteen containers are labeled with the patient's name, Mavis Hargrove. Specimen A right anterior cul-de-sac consists of one fragment of soft, pink-dean tissue measuring 0.5 x 0.4 x 0.2 cm. The specimen is submitted in toto in cassette A1. Specimen B middle anterior cul-de-sac consists of a triangular-shaped portion of soft, pink-dean tissue measuring 0.6 x 0.5 x 0.4 cm. The specimen is submitted in toto in cassette B1. Specimen C anterior rectal adhesion consists of three irregularly-shaped portions of soft, pink-dean tissue measuring 1.2 x 0.6 x 0.3 cm in aggregate. The specimen is submitted in toto in cassette C1. Specimen D middle posterior cul-de-sac consists of one fragment of yellow-dean fatty tissue measuring 1.2 x 0.7 x 0.4 cm. The specimen is submitted in toto in cassette D1. Specimen E right uterosacral ligament consists of a triangular-shaped portion of pink-dean membranous tissue measuring 1.5 x 0.6 x 0.4 cm. The specimen is submitted in toto in cassette E1. Specimen F right posterior cul-de-sac consists of one rectangular-shaped portion of yellow-dean fatty tissue measuring 1.4 x 0.7 x 0.3 cm. The specimen is submitted in toto in cassette F1. Specimen G right periuterine tissue consists of one irregularly-shaped portion of rubbery, purple-dean tissue measuring 1.0 x 1.0 x 0.7 cm. The specimen is submitted in toto in cassette G1. Specimen H right ovarian fossa consists of one rectangular-shaped portion of glistening, purple-dean membranous tissue measuring 1.6 x 1.0 x 0.3 cm. The specimen is submitted in toto in cassette H1. Specimen I cul-de-sac adhesion consists of Three irregularly-shaped fragments of purple-pink membranous tissue measuring 1.9 x 0.8 x 0.3 cm in aggregate. The specimen is submitted in toto in cassette I1. Specimen J left posterior cul-de-sac consists of one roughly rectangular-shaped portion of purple-pink fibrous tissue measuring 1.1 x 0.5 x 0.3 cm. The specimen is submitted in toto in cassette J1. Specimen K left uterosacral ligament consists of one irregularly-shaped strip of purple-pink membranous tissue measuring 1.4 x 0.2 x 0.2 cm. The specimen is submitted in toto in cassette K1. Specimen L left ovarian fossa consists of one irregularly-shaped portion of purple-dean membranous tissue measuring 2.1 x 1.5 x 0.4 cm. The specimen is submitted in toto in cassette L1. Specimen M appendix consists of a vermiform appendix measuring 5.0 cm in length x up to 0.7 cm in diameter. There is lobular, yellow-pink mesoappendix measuring 4.0 x 2.5 x 1.2 cm. The serosa is pink-dean and glistening. The proximal appendix is tied and pinched closed. The cut surface reveals a wall thickness of 0.2 to 0.3 cm and a pinpoint lumen with no gross evidence of inflammation or tumor formation. Oncology Rn sections are submitted in cassette M1. Specimen N left ovary and tube consists of a purple-pink and fimbriated fallopian tube measuring 2.0 cm in length x 0.4 cm in diameter with an unremarkable pinpoint lumen, and an attached oval-shaped , pink-dean ovary measuring 2.0 x 1.2 x 0.7 cm and weighing 3.1 grams. The cut surface of the ovary reveals mottled, dean ovarian tissue. Oncology Rn sections of the fallopian tube are submitted in cassette N1, and a distribution sales representative section of the ovary is submitted in cassette N2. Specimen O right tube consists of a purple-pink and fimbriated fallopian tube measuring 5.0 cm in length x 0.5 cm in diameter. The cut surface reveals an unremarkable pinpoint lumen. Oncology Rn sections are submitted in cassette O1. Specimen P uterus with cervix consists of a 44.0 g uterine-cervical complex measuring 6.7 cm from fundus to cervix x 5.0 cm from cornu to cornu x 2.6 cm from anterior to posterior. The serosa is pink-dean, smooth and glistening. The cervix is pink-dean and glistening and measures 2.0 x 1.6 cm with an eccentric oval-shaped os measuring 0.5 cm in diameter. The cut surface through the cervix reveals rubbery, glistening, white-pink fibrous tissue. The uterus is bisected revealing a 1.5 x 4.0 cm triangular-shaped endometrial cavity with glistening, pink endometrium measuring 0.1 cm in thickness. The cut surface through the uterus reveals rubbery, pink-dean myometrium measuring 1.0 cm in average thickness. Oncology Rn sections are submitted as follows: P1 - 12 o'clock cervix P2 - 6 o'clock cervix P3 and P4 - Anterior endomyometrium P5 and P6 - Posterior endomyometrium MR/me 10/26/2017 1:56 PM [facility] Microscopic Description Microscopic examination of the biopsies is performed. Please see final diagnosis for details. GASTON/rossy 10/26/2017 1:56 PM [facility] Disclaimer All histochemical and/or immunohistochemical results are interpreted with controls that demonstrate appropriate staining reactions before reporting results. Note on use of immunocytochemistry reagents: This test was developed and its performance characteristic determined by [facility], Department of Laboratory Medicine. It has not been cleared or approved by the U.S. Food and Drug Administration (FDA). The FDA has determined that such clearance or approval is not necessary. The test is used for clinical purpose. It should not be regarded as investigational or for research. This laboratory is certified to perform high complexity testing. 10/26/2017 1:56 PM CDT [facility] Embedded Images 10/26/2017 1:56 PM CDT [facility] Pathology/Cytology SPECIMEN FROM UTERINE CERVIX OBTAINED BY HYSTERECTOMY / Unknown 10/25/2017 9:07 AM CDT 10/25/2017 12:23 PM CDT Miscellaneous samples (specimen) ENTIRE RECTOUTERINE POUCH / Unknown 10/25/2017 9:11 AM CDT 10/25/2017 12:23 PM CDT Miscellaneous samples (specimen) ADHESION / Unknown 10/25/2017 9:15 AM CDT 10/25/2017 12:23 PM CDT Miscellaneous samples (specimen) ENTIRE RECTOUTERINE POUCH / Unknown 10/25/2017 9:18 AM CDT 10/25/2017 12:23 PM CDT Miscellaneous samples (specimen) ENTIRE LIGAMENT / Unknown 10/25/2017 9:20 AM CDT 10/25/2017 12:23 PM CDT Miscellaneous samples (specimen) ENTIRE RECTOUTERINE POUCH / Unknown 10/25/2017 9:22 AM CDT 10/25/2017 12:23 PM CDT Miscellaneous samples (specimen) TISSUE SPECIMEN / Unknown 10/25/2017 9:25 AM CDT 10/25/2017 12:23 PM CDT Miscellaneous samples (specimen) MISCELLANEOUS SAMPLES / Unknown 10/25/2017 9:26 AM CDT 10/25/2017 12:23 PM CDT Miscellaneous samples (specimen) ENTIRE RECTOUTERINE POUCH / Unknown 10/25/2017 9:27 AM CDT 10/25/2017 12:23 PM CDT Miscellaneous samples (specimen) ENTIRE RECTOUTERINE POUCH / Unknown 10/25/2017 9:28 AM CDT 10/25/2017 12:23 PM CDT Miscellaneous samples (specimen) ENTIRE LIGAMENT / Unknown 10/25/2017 9:31 AM CDT 10/25/2017 12:23 PM CDT Miscellaneous samples (specimen) MISCELLANEOUS SAMPLES / Unknown 10/25/2017 9:35 AM CDT 10/25/2017 12:23 PM CDT Miscellaneous samples (specimen) ENTIRE APPENDIX / Unknown 10/25/2017 9:44 AM CDT 10/25/2017 12:23 PM CDT Miscellaneous samples (specimen) FALLOPIAN TUBE AND OVARY, CS / Unknown 10/25/2017 10:22 AM CDT 10/25/2017 12:23 PM CDT Miscellaneous samples (specimen) FALLOPIAN TUBE PART / Unknown 10/25/2017 10:43 AM CDT 10/25/2017 12:23 PM CDT Miscellaneous samples (specimen) SPECIMEN FROM UTERINE CERVIX OBTAINED BY HYSTERECTOMY / Unknown 10/25/2017 9:07 AM CDT 10/25/2017 12:23 PM CDT Cesar Blevins Jr., MD LAB - PATHOLOGY/ CYTOLOGY ORDERABLES Performing Organization Address [facility] Co de Phone Number [facility] [address] [place] [address] * HCG URINE QUALITATIVE - POCT (IP) INTERFACED (10/25/2017 6:35 AM CDT) HCG Qual Urine Negative Negative 10/25/2017 6:41 AM CDT [facility] Urine URINE / Unknown 10/25/2017 6 :35 AM CDT 10/25/2017 6:41 AM CDT Cesar Blevins Jr., MD LAB - POINT OF C ARE ORDERABLES Performing Organization Address [facility] Co de Phone Number [facility] [address] [place] [address] * HCG URINE QUAL POCT NOTIFICATION (10/25/2017 6:13 AM CDT) Comment Notification Label Only - See Separate Report 10/25/2017 8:00 AM CDT [facility] Urine URINE / Unknown 10/25/2017 6 :13 AM CDT 10/25/2017 6:13 AM CDT Jose Caro DO LAB - URINALYSIS OR DERABLES Performing Organization Address [facility] Co de Phone Number [facility] [address] [place], [place] [id number] * BLOOD TYPE VERIFICATION (10/17/2017 11:10 AM CDT) ABO O 10/17/2017 11:47 AM CDT [facility] Rh Type Positive 10/17/2017 11:47 AM CDT [facility] Blood Bank BLOOD SPECIMEN / Unknown 10/17/2017 11:10 AM CDT 10/17/2017 11:38 AM CDT Cesar Blevins Jr., MD LAB - BLOOD BANK ORDERABLES Performing Organization Address [facility] Co de Phone Number [facility] [address] [place] [address] * TYPE + SCREEN PANEL (10/17/2017 10:33 AM CDT) ABO O 10/17/2017 11:47 AM CDT [facility] Rh Type Positive 10/17/2017 11:47 AM CDT [facility] Comment:History checked. Antibody Screen Negative 10/17/2017 11:47 AM CDT [facility] Blood Bank BLOOD SPECIMEN / Unknown Venipuncture / Unknown 10/17/2017 10:33 AM CDT 10/17/2017 10:56 AM CDT Cesar Blevins Jr., MD LAB - BLOOD BANK ORDERABLES Performing Organization Address [facility] de Phone Number [facility] [address] [place] [address] * CBC W AUTO DIFFERENTIAL (10/17/2017 10:32 AM CDT) Pathologist [facility] WBC 5.9 4.4 - 10.7 x10E9/L 10/17/2017 11:00 AM CDT [facility] WBC Corrected x10E9/L 10/17/2017 11:00 AM CDT [facility] RBC 4.39 3.80 - 5.20 x10E12/L 10/17/2017 11:00 AM CDT [facility] Hemoglobin 12.2 12.0 - 15.6 gm/dL 10/17/2017 11:00 AM CDT [facility] Hematocrit 37.8 35.9 - 45.5 % 10/17/2017 11:00 AM [facility] MCV 86.1 80.7 - 98.3 fl 10/17/2017 11:00 AM [facility] MCH 27.8 26.7 - 34.0 pg 10/17/2017 11:00 AM [facility] MCHC 32.3 30.8 - 35.9 gm/dL 10/17/2017 11:00 AM [facility] Platelet Count 235 153 - 416 x10E9/L 10/17/2017 11:00 AM [facility] RDW-CV 14.2 12.1 - 14.9 % 10/17/2017 11:00 AM [facility] MPV 9.5 9.4 - 12.9 fl 10/17/2017 11:00 AM [facility] Neutrophils % 52.5 44.0 - 73.0 % 10/17/2017 11:00 AM [facility] Lymphocytes % 36.6 20.0 - 43.0 % 10/17/2017 11:00 AM [facility] Monocytes % 8.3 5.0 - 13.0 % 10/17/2017 11:00 AM [facility] Eosinophils % 1.9 0.0 - 6.0 % 10/17/2017 11:00 AM [facility] Basophils % 0.5 0.0 - 2.0 % 10/17/2017 11:00 AM [facility] Immature Granulocytes 0.2 0 - 1 % 10/17/2017 11:00 AM [facility] Neutrophil Absolute 3.10 2.01 - 7.14 x10E9/L 10/17/2017 11:00 AM [facility] Lymphocytes Absolute 2.16 1.07 - 3.94 x10E9/L 10/17/2017 11:00 AM [facility] Monocytes Absolute 0.49 0.26 - 1.07 x10E9/L 10/17/2017 11:00 AM [facility] Eosinophils Absolute 0.11 0 - 0.47 x10E9/L 10/17/2017 11:00 AM [facility] Basophils Absolute 0.03 0 - 0.08 x10E9/L 10/17/2017 11:00 AM [facility] Immature Granulocytes Absolute 0.01 0.00 - 0.06 x10E9/L 10/17/2017 11:00 AM CDT [facility] nRBC Auto 0 /100 WBC 10/17/2017 11:00 AM CDT [facility] Blood BLOOD SPECIMEN / Unknown Venipuncture / Unknown 10/17/2017 10:32 AM CDT 10/17/2017 10:56 AM CDT Cesar Blevins Jr., MD LAB - HEMATOLOGY ORDERABLES Performing Organization Address City/[facility]/ZIP Co de Phone Number [facility] [address] [place] [address] * CHLAMYDIA + GC AMPLIFIED PROBE (04/18/2017 12:00 AM HEAD PIECE ASSEMBLER) Chlamydia trachomatis CELINA Negative Negative [facility] ([facility]) Neisseria gonorrhoeae CELINA Negative Negative [facility] ([facility]) Other (qualifier value) ENTIRE VAGINA / Unknown 04/18/2017 04/18/2017 Narrative [facility] ([facility]) - 04/20/2017 7:13 AM HEAD PIECE ASSEMBLER Performed at: ??01 - [facility] [address] ??[id number] Branch Logistics Supervisor: Abby Adame MD, Phone: ??[phone] Cesar Blevins Jr., MD LAB - MICROBIOLO GY ORDERABLES Performing Organization Address City/[facility]/ZIP Co de Phone Number [facility] ([facility]) [address] [place] [address] Care Teams Telecommunications Administrator Relationship Specialty Start Date End Date Jigar Navarro MD PCP - General Family Medicine 10/17/17
--- OUTSIDE RECORDS SUMMARY | 2024-05-29 09:08 | XMS_ITS | Continuity of Care Document ---
Author Organization [facility] Address [address] [place] [address] Phone Care Team Providers Care Branch Officer Name Role Phone Levi Persaud MD Unavailable Unavailable Allergies, Adverse Reactions, Alerts Substance Reaction Status Criticality HYDROCODONE BITARTRATE Active No In formation Medications Medication Instructions Dosage Effective Dates (start - stop) Status Comments hydrochlorothiazide 25 mg tablet take 1 tablet (25MG) by oral route every day 25 MG - Active Singulair 10 mg tablet take 1 tablet (10MG) by oral route every day in the evening 10 MG - Active Vitamin D2 50,000 unit capsule take 1 capsule ([id number]) by oral route every week - Active Procedures Procedure Date PREV VISIT, EST, AGE 40-64 OFFICE/OUTPATIENT VISIT, EST OFFICE/OUTPATIENT VISIT, EST OFFICE/OUTPATIENT VISIT, EST PREV VISIT, NEW, AGE 40-64 Advance Directives Directive Yes / No Effective Date File Name No Information Encounters Encounter Description Practice Location Reason(s) For Visit Diagnoses Date Provider Providers Copied on Encounter [facility], [address] [place] [id number], [place] tel:[phone] [facility] No Information 4 Hung Sims. [address], [facility] [place], [address] , [place]. tel:[phone] Referring Provider: Levi Persaud, [address] [facility] [place], [address]. tel:[phone] PREV VISIT, EST, AGE 40-64 [facility], [address], [place], [place], [address], [place] tel:[phone] [facility] physical (chief complaint) Routine Medical ExamDietary surveillance and counselingRoutine Medical Exam 4 Hung Sims. [address], [place], [place], [address] , [place]. tel:[phone] Referring Provider: Theresa Barragan [address], [place], [place], [id number]. tel:[phone] [facility], [address], [place], [place], [address], [place] tel:[phone] [facility] No Information 4 Hung Sims. [address], [place], [place], [address] , [place]. tel:[phone] [facility], [address], [place], [place], [address], [place] tel:[phone] [facility] Headache 3 Hung Sims. [address], [place], [place], [address] , [place]. [phone] Referring Provider: Theresa Barragan [address], [place], [place], [address]. tel:[phone] OFFICE/OUTPA TIENT VISIT, [facility], [address], [place], [place], [address], [place] tel:[phone] [facility] back pain (chief complaint)e ar stuffiness (chief complaint)s calp lesion (chief complaint) Dietary surveillance and counselingLumbagoO talgia, unspecifiedHeadach e 3 Hung Sims. [address], [place], [place], [address] , [place]. tel:[phone] Referring Provider: Theresa Barragan [address], [place], [place], [address]. tel:[phone] OFFICE/OUTPA TIENT VISIT, [facility], [address], [place], [address], [place] tel:[phone] [facility] ear pain (chief complaint)a bdominal pain (chief complaint) Dietary surveillance and counselingAllergic rhinitis, cause unspecifiedEnlarge ment of lymph nodesUpper Respiratory Infection, AcuteEndometriosis of other specified sites Jul- 3 Hung Sims. [address], [place], [place], [address] , [place]. tel:[phone] Referring Provider: Theresa Barragan [address], [place], [place], [address]. tel:[phone] OFFICE/OUTPA TIENT VISIT, [facility], [address], [place], [place], [address], [place] tel:[phone] [facility] sore throat (chief complaint)a bdominal pain (chief complaint) Dietary surveillance and counselingThroat painHypertension, UnspecifiedAbdomin al Pain 3 Hung Sims. [address], [place], [place], [address] , [place]. tel:[phone] Referring Provider: Theresa [address], [place], [place], [address]. tel:[phone] PREV VISIT, NEW, AGE 40-64 [facility], [address], [place], [place], [address], [place] tel:[phone] [facility] Physical (chief complaint)a bdominal pain (chief complaint) Dietary surveillance and counselingRoutine Medical ExamRoutine Medical Exam 3 Hung Sims. [address], [place], [place], [address] , [place]. tel:[phone] Referring Provider: Theresa Barragan [address], [place], [place], [address]. tel:[phone] Family History Family Member Type Diagnosis Age At Onset Brother Problem (finding) Hypertension Mother Problem (finding) Systemic lupus erythema tosus Father Problem (finding) Hypertension Payers Payer name Insurance type Covered constitution party ID Authoriza tion(s) No Information Social History Type Description Quantity Date Captured Comments Sex Female Smoking Status No Information Chief Complaint And Reason For Visit No Information Plan Of Treatment Date Type Action Status Goal Mammogram. Due on 4 due Referral Ordered: MRI BRAIN W/O DYE ordered Referral Ordered: Physical Therapy (related to Lumbago) ordered Referral Ordered: CT HEAD/BRAIN W/O & W/DYE ordered Referral Referred To: Physical Therapy Ordered: Referral: Physical Therapy. ordered Referral Ordered: US EXAM, ABDOM, COMPLETE ordered History Of Present Illness Encounter Date Complaint History Of Prese nt Illness No Information Instructions Date Instruction Additional Infor matthew Dietary counseling Related to Di etary surveillance counseling Decrease caloric intake Related to Dietary surveillance counseling Decrease caloric intake Related to Dietary surveillance counseling Dietary counseling Related to Di etary surveillance counseling Decrease caloric intake Related to Dietary surveillance counseling Dietary counseling Related to Di etary surveillance counseling Dietary counseling Related to Di etary surveillance counseling Decrease caloric intake Related to Dietary surveillance counseling Dietary counseling Related to Di etary surveillance counseling Assessments Type Assessment Date No Information
--- OUTSIDE RECORDS SUMMARY | 2024-05-29 09:08 | XMS_ITS | Clinical Summary ---
Author Organization [facility] Address [address] [facility] [place] [address] Care Team Providers Care Alternative Education Teacher Name Role Phone Jigar Navarro MD Primary Care Provider Source Comments [facility],non-owned Affiliates and Associated Physician Practices is amultiple site organization consisting of ambulatory clinics and hospital sitesin [place], [place], [place] and [place]. This disclosure is being madepursuant to the Care Everywhere program and may not contain all information available regarding this patient. Last updated 18.[facility] Allergies Active Allergy Reactions Criticality Noted Date Comments Naproxen Rash Medium 10/17/2017 Hives, swelling Medications * Be aware that medications may not be up to date on this document. Alwaysverify current medications with the patient. Medication Sig Dispensed Refills Start Date End Date Status hydroCHLOROthiazide (HYDRODIURIL) 50 MG tablet Take 50 mg by mouth Activ e ibuprofen (MOTRIN) 600 MG tablet Take 1 tablet by mouth every 6 hours as needed for Pain 50 tablet 10/25/2017 Active Additional Information Patient not taking.Reported on 11/16/2017 oxyCODONE-acetamino phen (PERCOCET) 5-325 MG tablet Take 1 tablet by mouth every 6 hours as needed for Pain 30 tablet 10/25/2017 Active Additional Information Patient not taking.Reported on 11/16/2017 ondansetron (ZOFRAN) 4 MG tablet Take 1 tablet by mouth every 6 hours as needed for Nausea/Vomiting 20 tablet 10/25/2017 Active Additional Information Patient not taking.Reported on 11/16/2017 metoclopramide (REGLAN) 10 MG tablet Take 1 tablet by mouth 3 times daily before meals 15 tablet 10/25/2017 Active metroNIDAZOLE (FLAGYL) 500 MG tablet Take 1 tablet by mouth 2 times daily 14 tablet 11/16/2017 Active Additional Information Patient not taking.Reported on 10/16/2018 fluconazole (DIFLUCAN) 200 MG tablet Take 1 tablet by mouth on days 1,4, and 7. 3 tablet 05/08/2018 Active Additional Information Patient not taking.Reported on 10/16/2018 aspirin (ASPIRIN) 81 MG tablet Take 81 mg by mouth once daily Active atorvastatin (LIPITOR) 40 MG tablet Take 40 mg by mouth once daily 06/19/2018 Active ticagrelor (BRILINTA) 90 MG tablet Take 90 mg by mouth once daily 06/19/2018 Active escitalopram (LEXAPRO) 10 MG tablet Take 10 mg by mouth once daily 10/05/2018 Active metoprolol succinate XL 24hr (TOPROL XL) 25 MG tablet Take 25 mg by mouth once daily 09/16/2018 Active ramipril (ALTACE) 5 MG capsule Take 5 mg by mouth once daily 09/16/2018 Active Active Problems Problem Noted Date Diagnosed Date [...] Mass Index 31.22 10/16/2018 11:34 AM CDT Plan of Treatment Health Maintenance Due Date Last Done Comments COLOGUARD (AGES 45-75) - COL ON CA SCREENING 1969 COLON MONITORING 1969 COLONOSCOPY - COLON CA SCREENING 1969 CT COLONOGRAPHY - COLON CA SCREENING 1969 Colorectal Cancer Screening 1969 FIT - COLON CA SCREENING 1969 FLEX SIG - COLON CA SCREENING 1969 MAMMOGRAM 1969 HIV SCREENING 1984 HEPATITIS C SCREENING 09/26/1987 DTAP/TDAP/TD VACCINES (1 - Tdap) 1988 HEPATITIS B VACCINE (1 of 3 - 19+ 3-dose series) 1988 SCREENING FOR DIABETES 11/03/2017 PNEUMOCOCCAL VACCINE 50+ (1 of 1 - PCV) 10/01/2019 ZOSTER VACCINE (1 of 2) 10/01/2019 COVID-19 VACCINE (1 - 2023-2 5 season) 2023 INFLUENZA VACCINE (#1) 2023 0, 02/21/2019 DEPRESSION SCREENING 05/01/2024 HIB VACCINE Aged Out No longer eligi ble based on patient's age to complete this topic HPV VACCINE Aged Out No longer eligi ble based on patient's age to complete this topic MENINGOCOCCAL (Group B) VACCINE Aged Out No longer eligible b ased on patient's age to complete this topic MENINGOCOCCAL VACCINE Aged Out No sulma karly eligible based on patient's age to complete this topic PNEUMOCOCCAL VACCINE Aged Out No long er eligible based on patient's age to complete this topic Care Teams Alternative Education Teacher Relationship Specialty Start Date End Date Jigar Navarro MD PCP - General Family Medicine 10/17/17
--- OUTSIDE RECORDS SUMMARY | 2024-05-29 09:08 | XMS_ITS | Clinical Summary ---
Author Organization [facility] [address] Address [address] [place] [address] Care Team Providers Care Cut Off Saw Grader Name Role Phone Melisa Clements MD Primary Care Provider Allergies Active Allergy Reactions Criticality Noted Date Comments Naproxen Hives,Swelling,Rash Medium 10/17/2017 Shellfish Containing Products Hives Medium 2020 Medications aspirin 81 mg tablet Take 1 tablet (81 mg total) by mouth daily Active nitroglycerin (NITROSTAT) 0.[address] 1 tablet (0.4 mg total) under the tongue every 5 (five) minutes as needed for chest pain 25 tablet 11 07/26/2018 Active losartan (COZAAR) 25 mg tablet Take 2 tablets (50 mg total) by mouth 2 (two) times a day Active escitalopram (LEXAPRO) 20 mg tablet Take 1 tablet (20 mg total) by mouth as needed Active buPROPion XL (WELLBUTRIN XL) 150 mg 24 hr tablet Take 1 tablet (150 mg total) by mouth daily as needed Active felodipine (PLENDIL) 5 mg 24 hr tablet Take 1 tablet (5 mg total) by mouth daily 09/03/2020 Active amLODIPine (NORVASC) 5 mg tablet Take 1 tablet (5 mg total) by mouth daily 12/04/2019 Active clopidogreL (PLAVIX) 75 mg tablet Take 1 tablet by mouth once daily 90 tablet 2 12/29/2023 Active metoprolol XL (TOPROL-XL) 25 mg extended release tablet Take 1 tablet by mouth once daily 90 tablet 03/25/2024 Active atorvastatin (LIPITOR) 40 mg tablet Take 1 tablet by mouth once daily 90 tablet 03/25/2024 Active Active Problems Problem Noted Date Diagnosed Date Morbid (severe) obesity due to excess calories 0 05/05/2022 Coronary artery disease invo lving [place] coronary artery of [place] heart without angina pectoris 09/04/2018 History of coronary artery stent placement 09/04 History of anterior wall myocardial infarction 0 09/04/2018 Surgical History Surgery Date Site/Laterality Comments CORONARY ANGIOPLASTY HYSTERECTOMY 10/23/2017 Medical History Medical History Date Comments Hypertension Hyperlipidemia Acid indigestion Arthritis Family History Medical History Relation Name Comments COPD Father Hypertension Father Lupus Mother Relation Name Status Comments Brother Alive Father Alive Mother Alive Social History Tobacco Use Types Packs/Day Years Used Date Smoking Tobacco: Never Smokeless Tobacco: Never Tobacco Cessation:Counseling Given: Not Answered Alcohol Use Standard Drinks/Week Comments Yes 1 (1 standard drink = 0.6 oz pur e alcohol) AUDIT-C Answer Date Recorded Frequency of Alcohol Consumption Monthly or less 07/03/2018 Average Number of Drinks 1 or 2 019 Frequency of Binge Drinking Never 08/2018 Personal Safety Answer Date Recorded Getting School Help Needed Not on file 05/23 Comments Unknown Sex and Gender Information Value Date Recorded Sex Assigned at Not on file 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 Gender Identity Not on file Sexual Orientation Not on file Obstetrics History Last Filed Vital Signs Vital Sign Reading Time Taken Comments Blood Pressure 110/68 09/26/2023 2:44 PM CDT Pulse 65 09/26/2023 2:44 PM CDT Temperature - - Respiratory Rate - - Oxygen Saturation 98% 09/26/2023 2:44 PM CDT Inhaled Oxygen Concentration - - Weight 94.7 kg (208 lb 12.8 oz) 09/26/2023 2:44 PM CDT Height 167.6 cm (5' 6 ) 09/26/2023 2:44 PM CDT Body Mass Index 33.7 09/26/2023 2:44 PM CDT Plan of Treatment Health Maintenance Due Date Last Done Comments Breast Cancer Screening-Mammogram 1969 Colon Cancer Screening-Colonoscopy 1969 Depression Screening 1969 Hepatitis C Screening 1969 DTaP/Tdap/Td Vaccine (1 - Tdap) 1980 Regular Well Visit/Exam 18-64 10/01/1987 Zoster Vaccine (1 of 2) 10/01/2019 Influenza Vaccine (#1) 2023 Pneumococcal vaccine <65 Aged Out No longer eligible based on patient's age to complete this topic Insurance IDPA [facility] [facility] IDPA BLUE ACCESS OOS Member Subscriber Plan / Payer (Ef fective 2021-Present) Name:Licha Ochoa Relation to Subscriber:Spouse Name:LICHA OCHOA Date of :1969 (Home) Address: [address] [place] [address] Payer ID:[id number] (NAIC) Type:BC ALLIANCE Address: [id number] [place] [id number] Care Teams Cut Off Saw Grader Relationship Specialty Start Date End Date Melisa Clements MD [address] [place] [address] PCP - General Family Medicine 05/05/22
--- OUTSIDE RECORDS SUMMARY | 2024-05-29 09:08 | XMS_ITS | Referral Summary ---
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
--- OUTSIDE RECORDS SUMMARY | 2024-05-29 09:08 | XMS_ITS | Clinical Summary ---
Author Organization [facility] Address [address] [place] [address]. [place] [address] [place] [address] Care Team Providers Care Ash Kier Boiler Name Role Phone Bambi Israel INSULATION SUPERVISOR Primary Care Provider Jigar Faye MD Unavailable [phone] Allergies Active Allergy Reactions Criticality Noted Date Comments Naproxen Hives 12/16/2019 Medications atorvastatin 40 MG tablet Take 40 mg by mouth daily. 11/11/2019 Active metoprolol succinate ER 25 MG 24 hr tablet Take 25 mg by mouth daily. 11/11/2019 Active losartan 50 MG tablet Take 50 mg by mouth 2 (two) times daily. 11/13/2019 Active amLODIPine 5 MG tablet Take 5 mg by mouth daily. 12/04/2019 Active clopidogrel 75 MG tablet Take 1 tablet by mouth daily. 12/10/2019 Active escitalopram 20 MG tablet Take 20 mg by mouth daily. 07/31/2019 Active famotidine 20 MG tablet Take 20 mg by mouth 2 (two) times daily as needed. 01/10/2019 Active buPROPion XL 150 MG 24 hr tablet Take 150 mg by mouth daily as needed. 08/21/2019 Active valACYclovir 500 MG tablet as needed. 02/22/2019 Acti ve aspirin EC (ASPIRIN EC) 81 MG tablet Take 81 mg by mouth daily. Active probiotic capsule Take 1 capsule by mouth 3 (three) times daily with meals. Active Active Problems Problem Noted Date Diagnosed Date CAD in [place] artery 12/19/2019 Essential hypertension 12/19/2019 Other hyperlipidemia 12/19/2019 Depression with anxiety 12/19/2019 Herpes simplex infection of genitourinary system 12/19/2019 Chronic neck pain 12/19/2019 History of DE (myocardial infarction) 12/19/2019 Family History Medical History Relation Comments Hypertension Brother COPD Father Hypertension Father Lupus Mother neuropathy Mother Relation Status Comments Brother Alive Father Alive Mother Alive Social History Tobacco Use Types Packs/Day Years Used Date Smoking Tobacco: Never Smokeless Tobacco: Never Tobacco Cessation:Counseling Given: No Alcohol Use Standard Drinks/Week Comments Not Currently 0 (1 standard drink = 0.6 oz pur e alcohol) PHQ-2 Answer Date Recorded PHQ-2 Score - If the patient scores above 3, please move on to questions 3-9 6 12/16/2019 Comments No Sex and Gender Information Value Date Recorded Sex Assigned at Not on file Legal Sex Female 8:30 PM CDT Gender Identity Not on file Sexual Orientation Not on file Last Filed Vital Signs Vital Sign Reading Time Taken Comments Blood Pressure 132/84 12/16/2019 11:23 AM CDT Pulse 84 12/16/2019 11:23 AM CDT Temperature 36.1 ??C (97 ??F) 12/16/2019 11:23 AM CDT Respiratory Rate 20 12/16/2019 11:23 AM CDT Oxygen Saturation 99% 12/16/2019 11:23 AM CDT Inhaled Oxygen Concentration - - Weight 92.8 kg (204 lb 9.6 oz) 12/16/2019 11:23 AM CDT Height 167.6 cm (5' 6 ) 12/16/2019 11:23 AM CDT Body Mass Index 33.02 12/16/2019 11:23 AM CDT Plan of Treatment Health Maintenance Due Date Last Done Comments ASCVD LDL 1969 ASCVD Statin 1969 Colorectal Cancer Screening Colonoscopy (10 Years) 1969 Annual Physical 1972 Pneumococcal Vaccine: Pediat rics (0 to 5 Years) and At-Risk Patients (6 to 64 Years) (1 of 2 - PCV) 10/01/1975 Hepatitis C 10/01/1987 DTaP, Tdap and Td Vaccines ( 1 - Tdap) 1988 Hepatitis B Vaccines (1 of 3 - 19+ 3-dose series) 1988 Mammogram Screening 2009 Zoster Vaccines (1 of 2) 10/01/2019 COVID-19 Vaccine (1 - 2023-2 5 season) 2023 Influenza Adult (#1) 2024 Meningococcal B Vaccine Aged Out No l onger eligible based on patient's age to complete this topic Meningococcal Vaccine Aged Out No sulma karly eligible based on patient's age to complete this topic RSV Immunizations Under 20 Months Aged Out No longer eligible based on patient's age to complete this topic Insurance [facility] Care Teams Ash Kier Boiler Relationship Specialty Start Date End Date Bambi Israel, INSULATION SUPERVISOR PCP - General NURSE PRACTITIONER 12/16/19 Jigar Navarro MD [address] [address] 12/16/19
--- OUTSIDE RECORDS SUMMARY | 2024-05-29 09:08 | XMS_ITS | Referral Summary ---
Author Organization [facility] [employer] Address [address] [facility] [place] [address] Care Team Providers Care Poll Clerk Name Role Phone Jigar Navarro MD Primary Care Provider Source Comments [facility] [employer],non-owned Affiliates and Associated Physician Practices is amultiple site organization consisting of ambulatory clinics and hospital sitesin [place], [place], [place] and [place]. This disclosure is being madepursuant to the Care Everywhere program and may not contain all information available regarding this patient. Last updated 18.[facility] [employer] Allergies Active Allergy Reactions Criticality Noted Date [...] 10/16/2018 11:34 AM CDT Plan of Treatment Not on file Care Teams Poll Clerk Relationship Specialty Start Date End Date Jigar Navarro MD PCP - General Family Medicine 10/17/17
[2024-05-29 09:15] LABS: Alanine Aminotransferase 28 U/L (6-35); Alkaline Phosphatase 101 U/L (38-126); Anion Gap 7 mmol/L (4-12); Aspartate Amino Transferase 29 U/L (14-36); Bilirubin,Total 0.3 mg/dL (0.2-1.3); Blood Urea Nitrogen 13 mg/dL (7-17); Calcium 8.7 mg/dL (8.4-10.2); Carbon Dioxide 28 mmol/L (22-30); Chloride 104 mmol/L (98-107); Estimated Glomerular Filt Rate > 60; Glucose 87 mg/dL (65-110); Potassium 4.4 mmol/L (3.4-5.0); Sodium 139 mmol/L (137-145)
== END 2024-05-29 08:44 | disposition home or self-care (01) ==
LOC: ANHLAB 08:46
PROVIDERS: PCP Family Medicine; Visit Provider Student in an Organized Health Care Education/Training Program
DX: R73.09 Other abnormal glucose (principal); R79.89 Other specified abnormal findings of blood chemistry
CPT/HCPCS: 36415; 80053; 83036

== ENCOUNTER 2024-10-01 16:17 | Emergency (ER) | payer BC, MEDICARE, MEDICAID, SELFPAY ==
--- NOTE | ~2024-10-01 | XR_ITS ---
XR chest 2V Ordering provider: Sindi Bustamante PA-C History: 54 years Female with . pre-op . Comparison: August 18, 2023 FINDINGS: MEDIASTINUM: The cardiac silhouette is not enlarged. LUNGS: No infiltrates, effusions or pneumothorax. OTHER: No free air under the diaphragm. Degenerative changes of the spine. IMPRESSION: No acute cardiopulmonary pathology. Reviewed, dictated and finalized at location A.
--- NOTE | ~2024-10-01 | XR_ITS ---
XR ankle RT 2V Ordering provider: Sindi Bustamante PA-C History: . post-reduction . Comparison: October 01, 2024 FINDINGS: BONES: Fracture of the medial, posterior and lateral malleoli. Status post placement in a cast.. JOINT SPACES: Normal. SOFT TISSUES: soft tissue swelling over the medial and lateral malleoli. IMPRESSION: Fracture of the medial, posterior and lateral malleoli. Status post placement in a cast. Reviewed, dictated and finalized at location A. IMPRESSION: Fracture of the medial, posterior and lateral malleoli. Status post placement i n a cast.
--- NOTE | ~2024-10-01 | XR_ITS ---
EXAMINATION: XR tibia fibula RT 2V, XR ankle RT min 3V DATE: 10/01/2024 16:54 INDICATION: Right ankle pain post injury TECHNIQUE: 1. Anteroposterior and lateral views of the right lower leg were obtained. 2. Anteroposterior, mortise, and lateral views of the right ankle were obtained. COMPARISON: None. FINDINGS: Transverse avulsion fracture across the base of the medial malleolus with 5 mm distraction. There is an oblique fracture through the distal fibula with a fracture plane exiting medially at the level of the tibiotalar joint. There is 2 mm lateral displacement. Finally there is a coronally oriented fract ure across the posterior aspect of the posterior malleolus with 2 mm posterior superior displacement. This appears to involve only a very small portion of the posterior articular surface of the tibial p golden. There is mild widening of the medial clear space with approximately 4 mm lateral subluxation of the talar dome with respect to the tibial plafond. No fracture noted more proximal tibia or fibula when the visualized right mid and hindfoot. Mild osteoarthritis at the proximal tibiofibular articul ation. Small plantar calcaneal spur and moderate-sized Achilles calcaneal spur.. Soft tissue swelling about the ankle most prominent anteriorly and laterally. IMPRESSION: 1. Mildly displaced Narayanan type B trimalleolar fracture of the right ankle with 4 mm lateral subluxati on of the talar dome with respect to the tibial plafond. Reviewed, dictated and finalized at location A. IMPRESSION: 1. Mildly displaced Narayanan type B trimalleolar fracture of the right ankle with 4 mm lateral subluxation of the talar dome with respect to the tibial plafond.
[2024-10-01 16:36] VITALS: BP 124/66; PULSE 82; RESP 18; TEMP 36.3; O2SAT 100
--- NOTE | 2024-10-01 17:13 | ED_ITS ---
HPI - Extremity Injury (Lower) General Chief Complaint: Extremity Injury, Lower Stated Complaint: RIGHT ANKLE INJURY Time Seen by Provider: 10/01/24 16:25 Source: patient Mode of arrival: wheelchair Limitations: no limitations History of Present Illness HPI Narrative: This is a 54 year old female that presents to the ER for right ankle injury sustained just prior to arrival. Reports she tripped and fell down about 5 steps. Reports twisting the right ankle. Reports swelling and pain to the area. She did not hit her head or lose consciousness. Denies numbness. Related Data Home Medications ?Medication ?Instructions ?Recorded ?Confirmed ?Last Taken ?Type metoprolol succinate 25 mg 25 mg PO DAILY 09/01/19 08/23/24 Unknown History tablet,extended release 24 hr clopidogrel 75 mg tablet PO DAILY 01/19/21 08/23/24 Unknown History aspirin 81 mg tablet,delayed 81 mg PO DAILY 10/29/21 08/23/24 Unknown History release (Adult Aspirin Regimen) atorvastatin 20 mg tablet 40 mg PO QHS 01/12/23 08/23/24 Unknown History cholecalciferol (vitamin D3) 10 10 mcg PO DAILY 01/12/23 08/23/24 Unknown History mcg (400 unit) capsule Allergies Allergy/AdvReac Type Severity Reaction Status Date / Time trimethoprim Allergy Severe HIVES, Verified 10/01/24 17:26 RASH, ITCHING sulfamethoxazole Allergy Unknown HIVES, Verified 10/01/24 17:26 RASH, ITCHING naproxen (From Aleve) Allergy Unknown Verified 10/01/24 17:26 Review of Systems Review of Systems: All systems reviewed & are unremarkable except as noted in HPI and below PMFSH Past Medical History Medical History Endometriosis Recent heart attack GERD (gastroesophageal reflux disease) Hypertension Coronary artery disease Coronary artery disease GERD (gastroesophageal reflux disease) Hypertension Hyperlipidemia Anxiety Depression Myocardial infarct Surgical History Surgical History History of section History of colonoscopy H/O cardiac catheterization History of partial hysterectomy History of percutaneous coronary intervention Family History Family History Mother Hypertension Lupus Family history of lupus erythematosus Diabetes mellitus Grandparent Hypertension Hyperlipidemia Family history of elevated blood lipids Father Malignant neoplasm of prostate Sibling No problems noted. Social History Social History (Updated 08/23/24 @ 08:13 by Emily Ignacio) Social History: Smoking status: Never smoker Second hand tobacco smoke exposure: No Alcohol intake: never Substance use: never Substance use type: does not use Do You Feel Safe in your Home?: Yes Lack of Transportation: No Lack of Food: Never True Current Housing: I Have Housing Concerned About Future Housing: No Difficulty Paying Gas/Electric Bills: No Difficulty Paying for Meds: No Currently Unemployed: No Education: Don't Know Difficulty w/ Childcare or Family Care: No Living arrangements: with family Occupation/Education: occupation Gender identity (if verbalized by the patient): Female Sexual Orientation (if Verbalized by the Patient): Straight or Heterosexual Exam Narrative: GENERAL: Well-appearing, well-nourished, and in no acute distress. HEAD: Normocephalic, atraumatic. EYES: EOMI. CHEST: No respiratory distress. HEART: Regular rate EXTREMITIES: Decreased active range of motion in the right ankle. Moderate edema about the right ankle medial and lateral malleoli. Normal DP pulse. Normal sensation SKIN: Warm, dry, no rash. NEURO: No focal deficits. Alert and oriented x3. PSYCH: Normal mood and affect Course Consultations Consultation #1: Spoke with Dr. Garcias about patient and workup. Will add on chest x-ray and EKG, this will help expedite surgery. She may be placed in splint and discharged Date: 10/01/24 Vital Signs Vital signs: Vital Signs Temperature 97.3 F L 10/01/24 16:36 Pulse Rate 82 10/01/24 16:36 Respiratory Rate 18 10/01/24 16:36 Blood Pressure 124/66 10/01/24 16:36 Pulse Oximetry 100 10/01/24 16:36 Oxygen Delivery Room Air 10/01/24 16:36 Temperature 97.3 F L 10/01/24 16:36 Pulse Rate 82 10/01/24 16:36 Respiratory Rate 18 10/01/24 16:36 Blood Pressure 124/66 10/01/24 16:36 Pulse Oximetry 100 10/01/24 16:36 Oxygen Delivery Room Air 10/01/24 16:36 Procedures Orthopedic Splinting/Casting Injury #1: Splinting/Casting Date: 10/01/24 Side: right Lower Extremity Injury Location: ankle Splint: customized in ED OCL: short leg Pre-Procedure Neuro Vascular Exam: normal Post-Procedure Neuro Vascular Exam: normal Other Orthopedic Equipment: crutches MDM - Extremity Injury (Lower) MDM Narrative Medical decision making narrative: Patient presents the emergency department after a fall down steps with right ankle injury. She is neurovascularly intact. Right ankle x-ray shows trimalleolar fracture. Spoke with Dr. Garcias. Will add on chest x-ray and EKG for preop. He will follow up with her in clinic. She was placed in a short-leg and stirrup splint. She is given warnings to return to the ER Differential Diagnosis Differential diagnosis: Likely ankle sprain and strain and ankle fracture Imaging Data Radiologist's impression: ITS Impressions Ankle X-Ray 10/01/24 16:56 IMPRESSION: 1. Mildly displaced Narayanan type B trimalleolar fracture of the right ankle with 4 mm lateral subluxation of the talar dome with respect to the tibial plafond. Tibia/Fibula X-Ray 10/01/24 16:56 IMPRESSION: 1. Mildly displaced Narayanan type B trimalleolar fracture of the right ankle with 4 mm lateral subluxation of the talar dome with respect to the tibial plafond. Chest X-Ray 10/01/24 17:39 IMPRESSION: No acute cardiopulmonary pathology. ECG Data EKG #1: ECG completion date: 10/01/24 EKG Interpretation: normal rate, sinus rhythm, no ST changes and normal QT Critical Care Time Critical Care Time Critical Care Time: No Discharge Plan Discharge Clinical Impression: Closed trimalleolar fracture Qualifiers: Encounter type: initial encounter Laterality: right Qualified Code(s): S82.851A - Displaced trimalleolar fracture of right lower leg, initial encounter for closed fracture Patient Disposition: Home Condition: Stable Instructions: Ankle Fracture (ED) Additional Instructions: Return to the ER if you experience fever, redness and swelling of your extremity, numbness or any other symptoms that are concerning to you Wear splint and use crutches. No weight on the affected leg. Ice and elevate extremity. Pain medication as needed and directed. Follow up with orthopedics for further care. Patient Language: [place] Prescriptions: New hydrocodone-acetaminophen 5-325 mg tablet 1 tablet PO Q6H PRN (Reason: pain) Qty: 20 0RF No Action nitroglycerin 0.4 mg tablet, sublingual 0.4 mg sublingual Q5MIN PRN (Reason: Chest Pain) Qty: 60 0RF aspirin [Adult Aspirin Regimen] 81 mg tablet,delayed release (DR/EC) 81 mg PO DAILY cholecalciferol (vitamin D3) 10 mcg (400 unit) capsule 10 mcg PO DAILY benzonatate 200 mg capsule 200 mg PO TID PRN (Reason: cough) Qty: 30 0RF albuterol sulfate 90 mcg/actuation HFA aerosol inhaler 1 inh inhalation Q4H PRN (Reason: shortness of breath or wheezing) Qty: 8.5 0RF metoprolol succinate 25 mg tablet extended release 24 hr 25 mg PO DAILY clopidogrel 75 mg tablet PO DAILY cyclobenzaprine 10 mg tablet 10 mg PO TID PRN (Reason: muscle spasm) Qty: 20 0RF valacyclovir [Valtrex] 500 mg tablet 500 mg PO DAILY Qty: 100 0RF Rx Instructions: Take 1 tablet daily for suppression and take 1 tablet BID x 3 days for outbreaks. atorvastatin 20 mg tablet 40 mg PO QHS felodipine 5 mg tablet extended release 24 hr 5 mg PO DAILY Qty: 90 1RF bupropion HCl 150 mg tablet extended release 24 hr See Rx Instructions .ROUTE .COMPLEX Qty: 90 0RF Dose Instruction: TAKE 1 TABLET BY MOUTH ONCE DAILY IN THE MORNING Rx Instructions: TAKE 1 TABLET BY MOUTH ONCE DAILY IN THE MORNING escitalopram oxalate 20 mg tablet See Rx Instructions .ROUTE .COMPLEX Qty: 90 1RF Dose Instruction: Take 1 tablet by mouth once daily Rx Instructions: Take 1 tablet by mouth once daily losartan 50 mg tablet See Rx Instructions .ROUTE .COMPLEX Qty: 180 1RF Dose Instruction: Take 1 tablet by mouth twice daily Rx Instructions: Take 1 tablet by mouth twice daily Wegovy 1.7 mg/0.75 mL pen injector 1.7 mg subcut WEEKLY Qty: 3 0RF Rx Instructions: For 4 weeks Follow-up/Referrals: Blake Garcias MD [Physician] - UNKNOWN,DOCTOR [Primary Care Provider] -
--- NOTE | 2024-10-01 17:23 | ECG_ITS ---
Test Date: 2024-10-01 18:07:14 Measurements Intervals [place] Rate: 66 P: 53 RI: 189 QRS: 13 QRSD: 84 T: 6 QT: 403 QTc: 424 Interpretive Statements SINUS RHYTHM POSSIBLE RIGHT VENTRICULAR CONDUCTION DELAY NONSPECIFIC T-WAVE ABNORMALITY- INFERIOR LEADS BORDERLINE ECG No previous ECG available for comparison Electronically Signed On 10-01-2024 18:49:22 CDT by Austin Heller D.O.
[2024-10-01] MEDS: HYDROcodone/acetaminophen (*CRX) 5-325 MG TABLET 1 TAB PO (18:04)
== END 2024-10-01 19:16 | disposition home or self-care (01) ==
PROVIDERS: Emergency Provider Physician Assistant
DX: S82.851A Displaced trimalleolar fracture of right lower leg, initial encounter for closed fracture (principal); W10.9XXA Fall (on) (from) unspecified stairs and steps, initial encounter
CPT/HCPCS: 29515; 71046; 73590; 73600; 73610; 93005; 99284; A9270

== ENCOUNTER 2025-04-12 08:16 | Outpatient (CLI) | payer BC, MEDICARE, SELFPAY ==
--- OUTSIDE RECORDS SUMMARY | 2025-04-12 08:24 | XMS_ITS | Clinical Summary ---
Author Organization [facility] [address] Address [address] [place] [address] Care Team Providers Care Director Medical Name Role Phone Bao Rivera MD Primary Care Provider Allergies Active Allergy Reactions Criticality Noted Date Comments Naproxen Hives,Rash,Swelling, Other (See comments) Medium 02/10/2015 Aleve Shellfish Containing Products Hives Medium 05/05/2020 Medications aspirin 81 mg tablet Take 1 tablet (81 mg total) by mouth daily Active nitroglycerin (NITROSTAT) 0.[address] 1 tablet (0.4 mg total) under the tongue every 5 (five) minutes as needed for chest pain 25 tablet 11 9 Active escitalopram (LEXAPRO) 20 mg tablet Take 1 tablet (20 mg total) by mouth as needed Active buPROPion XL (WELLBUTRIN XL) 150 mg 24 hr tablet Take 1 tablet (150 mg total) by mouth daily as needed Active felodipine (PLENDIL) 5 mg 24 hr tablet Take 1 tablet (5 mg total) by mouth daily 1 Active amLODIPine (NORVASC) 5 mg tablet Take 1 tablet (5 mg total) by mouth daily 0 Active albuterol HFA (PROVENTIL HFA,VENTOLIN HFA,PROAIR HFA) 90 mcg/actuation inhaler INHALE 1 PUFF BY MOUTH EVERY 4 HOURS NEEDED FOR SHORTNESS OF BREATH OR WHEEZING. 5 Active methylPREDNISo lone (MEDROL DOSEPACK) 4 mg Dosepack TAKE BY MOUTH DIRECTED ON INSIDE OF PACKAGE 5 Active Wegovy 1 mg/0.5 mL auto-injector INJECT 1MG SUBCUTANEOUSLY ONCE WEEKLY 5 Active losartan (COZAAR) 50 mg tablet Take 1 tablet (50 mg total) by mouth 2 (two) times a day 5 Active albuterol HFA (PROVENTIL HFA,VENTOLIN HFA,PROAIR HFA) 90 mcg/actuation inhalerIndicat ions:History of wheezing Inhale 2 puffs every 6 (six) hours as needed for wheezing 1 each 5 026 Active inhalational spacing device (Aerochamber MV) spacerIndicati ons:History of wheezing Use with albuterol inhaler 1 each 5 Active promethazine-D M (PROMETHAZINE- DM) 1.25-3 mg/mL syrupIndicatio ns:Acute cough Take 5 mL by mouth every 4 (four) hours as needed for cough 120 mL 5 Active clopidogreL (PLAVIX) 75 mg tablet Take 1 tablet by mouth once daily 90 tablet 3 5 Active metoprolol XL (TOPROL-XL) 25 mg extended release tablet Take 1 tablet by mouth once daily 90 tablet 3 5 Active atorvastatin (LIPITOR) 40 mg tablet TAKE 1 TABLET BY MOUTH ONCE DAILY. APPOINTMENT REQUIRED FOR FUTURE REFILLS 90 tablet 3 5 Active Active Problems Problem Noted Date Diagnosed Date Morbid (severe) obesity due to excess calories 0 05/05/2022 Prediabetes 07/06/2020 History of colonic polyps 01/23/2020 Myocardial infarction 01/23/2020 Chronic neck pain 12/19/2019 Depression with anxiety 12/19/2019 Essential hypertension 12/19/2019 Herpes simplex infection of genitourinary system 12/19/2019 Other hyperlipidemia 12/19/2019 CAD in [place] artery 12/19/2019 History of CA (myocardial infarction) 12/19/2019 Panic attack 08/21/2019 Coronary artery disease invo lving [place] coronary artery of [place] heart without angina pectoris 09/04/2018 History of coronary artery stent placement 09/04 History of anterior wall myocardial infarction 0 09/04/2018 Adenomyosis 11/03/2017 S/P laparoscopic hysterectomy 10/25/2017 Arthralgia of multiple joints 07/22/2015 Overview (09/22/2024): Location: None;Severity: Moderate;Progress: Stable;Added By: Jigar Navarro;Add to Current Problems: YES Dyspnea 12/10/2014 Overview (09/22/2024): Location: None;Severity: Moderate;Progress: Stable;Added By: Altagarcia Abraham;Add to Current Problems: YES Localized superficial swelling of skin 5 Overview (09/22/2024): Location: None;Severity: Moderate;Progress: Stable;Added By: Jigar Navarro;Add to Current Problems: YES Primary localized 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 12/10/2014 Overview (09/22/2024): Location: None;Severity: Moderate;Progress: Stable;Added By: Jigar Navarro;Add to Current Problems: YES Painful breathing 12/10/2014 Overview (09/22/2024): Location: None;Severity: Moderate;Progress: Stable;Added By: Jigar Navarro;Add to Current Problems: YES Epidermoid cyst of skin 08/27/2014 Overview (09/22/2024): Location: None;Severity: Moderate;Progress: Stable;Added By: Jigar Navarro;Add to Current Problems: YES Generalized abdominal pain 08/27/2014 Overview (09/22/2024): Location: None;Severity: Moderate;Progress: Stable;Added By: Arabella Kent;Add to Current Problems: YES Lipoma 08/27/2014 Overview (09/22/2024): Location: None;Severity: Moderate;Progress: Stable;Added By: Jigar Navarro;Add to Current Problems: YES Acute gastritis 05/04/2014 Overview (09/22/2024): Location: None;Severity: Moderate;Progress: Stable;Added By: Arabella Kent;Add to Current Problems: YES Ganglion of joint 05/04/2014 Overview (09/22/2024): Location: None;Severity: Moderate;Progress: Stable;Added By: Jigar Navarro;Add to Current Problems: YES Periumbilical pain 05/04/2014 Overview (09/22/2024): Location: None;Severity: Moderate;Progress: Stable;Added By: Jigar Navarro;Add to Current Problems: YES General symptom 03/02/2014 Overview (09/22/2024): Location: None;Severity: Moderate;Progress: Stable;Added By: Arabella Kent;Add to Current Problems: YES Cough 03/02/2014 Overview (09/22/2024): Location: None;Severity: Moderate;Progress: Stable;Added By: Dianne ChristineAdd to Current Problems: YES Elevated blood-pressure read ing without diagnosis of hypertension 03/02/2014 Overview (09/22/2024): Location: None;Severity: Moderate;Progress: Stable;Added By: Jigar Navarro;Add to Current Problems: YES Gallstone 08/28/2013 Overview (09/22/2024): Location: None;Severity: Moderate;Progress: Stable;Added By: Jigar Navarro;Add to Current Problems: NO Lymphadenopathy 07/24/2013 Overview (09/22/2024): Location: None;Severity: Moderate;Progress: Stable;Added By: Arabella Kent;Add to Current Problems: NO Surgical History Surgery Date Site/Laterality Comments CORONARY [...] 019 Frequency of Binge Drinking Never 08/2018 Comments Unknown Sex and Gender Information Value Date Recorded Sex Assigned at Not on file Legal Sex Female 3:32 AM [employer] Gender Identity Not on file Sexual Orientation Not on file Last Filed Vital Signs Vital Sign Reading Time Taken Comments Blood Pressure 118/74 01/09/2025 12:14 PM CDT Pulse 74 01/09/2025 12:14 PM CDT Temperature 37.1 C (98.7 F) 09/22/2024 6:18 PM CDT Respiratory Rate 21 09/22/2024 6:18 PM CDT Oxygen Saturation 98% 01/09/2025 12: 14 PM CDT Inhaled Oxygen Concentration - - Weight 87.5 kg (192 lb 14.4 oz) 025 12:14 PM CDT Height 167.6 cm (5' 6) 01/09/2025 12:1 4 PM CDT Body Mass Index 31.13 01/09/2025 12:14 PM CDT Plan of Treatment Health Maintenance Due Date Last Done Comments Breast Cancer Screening-Mammogram 1969 Colon Cancer Screening-Colonoscopy 1969 Depression Screening 1969 Hepatitis C Screening 1970 Regular Well Visit/Exam 18-64 10/01/1987 Zoster Vaccine (1 of 2) 10/01/2019 DTaP/Tdap/Td Vaccine (2 - Td or Tdap) 10/13/2020 10/13/2010 Influenza Vaccine (#1) 2024 0, 02/21/2019 Hepatitis B Screening Completed 12/09/2014 Pneumococcal vaccine <65 Aged Out No longer eligible based on patient's age to complete this topic Insurance IDPA BLUE ACCESS OOS IDPA BLUE ACCESS OOS Care Teams Director Medical Relationship Specialty Start Date End Date Bao Rivera MD [address] [facility] [address] [place] [address] PCP - General Family Medicine 09/22/24
--- OUTSIDE RECORDS SUMMARY | 2025-04-12 08:24 | XMS_ITS | Data Portability ---
[facility] Organization [facility] Address [address] [place] [address] Assessment No assessment recorded. Plan of Treatment Reminders Order Date Submit Date Provider Last Modified By Organization Details Last Modified Time Details Appointments None recorde d. Lab amylase + lipase, serum 2020 021 [facility], [address] [place] [address], [address], [place], [address], 12:11:05 gamma-g lutamyl transfe rase (ggt), serum [address] [facility], [address] [place] [address], [address], [place], [address], 1 12:11:06 hepatit is panel (A+B+C) , acute, serum [address] [facility], [address] [place] [address], [address], [place], [address], 12:11:05 BMP, serum or plasma 2020 021 [facility], [address] [place] [address], [address], [place], [address], 08:21:22 amylase + lipase, serum 2020 021 [facility], [address] [facility], [address], [place], [address], 08:21:23 HbA1c (hemogl obin A1c), blood 2020 [email or web address] In-Office Order, Internal Use Only DO Not Attach Compendium DO Not Attach Compendium, Do Not Delete/merge, [id number] 16:17:10 lipid panel, serum 2020 [facility] (Lab), [address] [place] [address] [address], [place], [address], 12:41:12 TSH + free T4, serum 2020 [facility] (Lab), [address] [place] [address] [address], [place], [address], 12:41:12 vitamin D, 25-hydr oxy, total, serum 2020 [facility] (Lab), [address] [place] [address] [address], [place], [address], 12:41:12 CBC w/ auto diff 2020 [facility] (Lab), [address] [place] [address] [address], [place], [address], 12:41:12 CMP, serum or plasma 2020 [facility] (Lab), [address] [place] [address] [address], [place], [address], 12:41:12 Referral neurolo gist referra l - Please contact pt to boo santana for appoint ment, MRI is boo santana for 01/05/21 at [facility] . Thank you. 2020 [facility], [address] [facility], [place], [address], 15:15:54 vestibu lar therapy referra l 2020 [facility] (Outpatient Physical Therapy), [address], [place], [address], 15:30:31 weight managem ent referra l - Please contact patient to boo dean Thank you. Parminder Ni juliet 2020 BRYAN Butler MD, [address] [facility] [address], [place], [address], 17:40:07 gastroe nterolo gist referra l 2020 [facility] Stephenie Campos MD, [address], [place], [address], 09:13:56 Procedures None recorde d. Surgeries None recorde d. Imaging MRI, brain + brain stem, w/wo contras t 2020 [facility] (Imaging), [address] [facility] [address], [place], [address], 19:38:51 XR, hip, unilate ral 2020 021 [facility] (Imaging), [address] [address], [place], [address], 2 19:05:01 [place], dominic hood 2020 [facility] (Imaging), [address] [facility] [facility] [address], [place], [address], 11:35:22 Medication Orders escital opram 20 mg tablet 2020 [facility], [address], [place], [address], 10:45:57 alprazo mortensen 0.25 mg tablet 2020 [facility], [address] [place], [address], 10:46:00 alprazo mortensen 0.25 mg tablet 2020 [facility], [address] [place], [address], 14:48:43 escital opram 20 mg tablet 2020 [facility], [address] [place], [address], 14:48:39 Kenalog 40 mg/mL suspens ion for injecti on 2020 [email or web address] Not available 14:45:31 lidocai ne (PF) 10 mg/mL (1 %) injecti on solutio n 2020 [email or web address] Not available 14:48:58 Medrol (Reji) 4 mg tablets in a dose pack 2020 [email or web address] [facility], [address] [place], [address], 14:45:35 dicyclo mine 10 mg capsule 2020 [facility], [address] [facility], [place], [address], 15:53:28 famotid ine 20 mg tablet 2020 [facility], [address] [place], [address], 15:53:18 omepraz ole 20 mg capsule ,delaye d release 2020 [facility], [address] [place], [address], 16:04:01 escital opram 20 mg tablet 2020 [facility], [address] [place], [address], 15:53:33 alprazo mortensen 0.25 mg tablet 2020 [facility], [address] [place], [address], 16:10:15 hydroch lorothi azide 25 mg tablet 2020 [facility], [address] [place], [address], 15:53:16 felodip ine ER 5 mg tablet, extende d release 24 hr 2020 [facility], [address] [place], [address], 15:53:30 nitrogl ycerin 0.4 mg subling ual tablet 2020 [facility], [address] [place], [address], 15:53:08 Patient TargetsNo targets recorded. Patient Instructions Encounter Date Encounter Id Patient Instructions Last Modified By Organization Details Last Modified Time 11/24/2020 [id number] A healthy lifestyle: care instructions kristy Not available 11/24/2020 11:46:21 trochanteric bursitis: exercises Not available 11/24/2020 11:46:22 12/29/2020 [id number] vertigo: exercises Not available 12/29/2020 14:48:30 Reason for Referral Weight Management Referral f or Obesity Please contact patient to schedule. Thank you. Parminder [place] Referring Physician: Adela Bello [facility], Encounter Date: 11/24/2020 [employer]ing [employer] Operator Referral for Steatotic liver disease Referring Physician: Adela Bello [facility], Encounter Date: 11/24/2020 Vestibular Therapy Referral for Benign paroxysmal positional vertigo Referring Physician: Adela Bello [facility], Encounter Date: 12/29/2020 Neurologist Referral for On examination - Romberg positive Please contact pt to schedule for appointment, MRI is schedule for 01/05/21 at [facility]. Thank you. Referring Physician: Adela Bello [facility], Encounter Date: 12/29/2020 Results Created Date Observation Date Name Description Value Unit Range Abnormal Flag Note LastModifiedBy Organization Detail LastModifiedTime 07/08/19 21 07/07/2020 HbA1c (hemo globi n A1c), blood HbA1c 5.9 Not Available In-Office Order Internal Use Only DO Not Attach Compendium DO Not Attach Compendium, Do Not Delete/merge, [id number] 07/07/2020 15:45:25 09/16/1909/16/2020 BMP, serum or plasm a glucose 88 mg/dL 65-99 Not Available [facility] ([facility]) [address] [place], [address], 09/16/2020 08:21:22 09/16/1909/16/2020 BMP, serum or plasm a BUN 17 mg/dL 6-24 Not Available [facility] ([facility]) [address] [place], [address], 09/16/2020 08:21:22 09/16/1909/16/2020 BMP, serum or plasm a creatinine 0.81 mg/dL 0.57-1 .00 Not Available [facility] ([facility]) [address] [place], [address], 09/16/2020 08:21:22 09/16/19 21 09/16/2020 BMP, serum or plasm a eGFR if nonafricn AM 85 mL/mi n/1.7 3 >59 Not Available [facility] ([facility]) [address] [place], [address], 09/16/2020 08:21:22 09/16/19 21 09/16/2020 BMP, serum or plasm a eGFR if africn AM 98 mL/mi n/1.7 3 >59 Lab rigoberto curre ntly repor ts eGFR in compl iance with the curre nt recom menda tions of the [facility] ation . [facility] r[facility] will updat e repor ting as new guide lines are publi shed from the NKF-A SN Task force . Not Available [facility] ([facility]) [address] [facility], [place], [address], 09/16/2020 08:21:22 09/16/1909/16/2020 BMP, serum or plasm a BUN/creatini ne ratio 21 9-23 Not Available [facility] ([facility]) [address] [place], [address], 09/16/2020 08:21:22 09/16/1909/16/2020 BMP, serum or plasm a sodium 141 mmol/ L 134-14 4 Not Available [facility] ([facility]) [address] [place], [address], 09/16/2020 08:21:22 09/16/1909/16/2020 BMP, serum or plasm a potassium 4.2 mmol/ L 3.5-5. 2 Not Available [facility] ([facility]) [address] [place], [address], 09/16/2020 08:21:22 09/16/19 21 09/16/2020 BMP, serum or plasm a chloride 100 mmol/ L 96-106 Not Available [facility] ([facility]) [address] [place], [address], 09/16/2020 08:21:22 09/16/19 21 09/16/2020 BMP, serum or plasm a carbon dioxide, total 29 mmol/ L 20-29 Not Available [facility] ([facility]) [address] [place], [address], 09/16/2020 08:21:22 09/16/19 21 09/16/2020 BMP, serum or plasm a calcium 9.4 mg/dL 8.7-10 .2 Not Available [facility] ([facility]) [address] [place], [address], 09/16/2020 08:21:22 09/16/19 21 09/16/2020 amyla se + lipas e, serum amylase 125 U/L 31-110 above high normal Not Available [facility] ([facility]) [address] [place], [address], 09/16/2020 08:21:23 09/16/19 21 09/16/2020 amyla se + lipas e, serum lipase 20 U/L 14-72 Not Available [facility] ([facility]) [address] [place], [address], 09/16/2020 08:21:23 11/25/19 21 11/25/2020 HEPAT ITIS PANEL (4) hep A Ab, IgM Negati ve negati ve Not Available [facility] ([facility]) [address] [place], [address], 11/25/2020 12:11:05 11/25/19 21 11/25/2020 HEPAT ITIS PANEL (4) HBsAg screen Negati ve negati ve Not Available [facility] ([facility]) [address] [place], [address], 11/25/2020 12:11:05 11/25/19 21 11/25/2020 HEPAT ITIS PANEL (4) hep B core Ab, IgM Negati ve negati ve Not Available [facility] ([facility]) [address] [facility], [place], [address], 11/25/2020 12:11:05 11/25/19 21 11/25/2020 HEPAT ITIS PANEL (4) hep C virus Ab <0.1 s/co_ ratio 0.0-0. 9 Negat jeremy: < 0.8 Indet ermin ate: 0.8 - 0.9 Posit jeremy: > 0.9 The CDC recom mends that a posit jeremy HCV antib jim resul t be follo wed up with a HCV Nucle ic Acid Ampli ficat ion test (5507 13). Not Available [facility] ([facility]) [address] [facility], [place], [address], 11/25/2020 12:11:05 11/25/19 21 11/25/2020 TRENTON+L IPASE amylase 103 U/L 31-110 Not Available [facility] ([facility]) [address] [facility], [place], [address], 11/25/2020 12:11:05 11/25/19 21 11/25/2020 TRENTON+L IPASE lipase 17 U/L 14-72 Not Available [facility] ([facility]) [address] [facility], [place], [address], 11/25/2020 12:11:05 11/25/19 21 11/25/2020 GGT GGT 40 IU/L 0-60 Not Available [facility] ([facility]) [address] [facility], [place], [address], 11/25/2020 12:11:06 07/24/19 21 07/16/2020 XR, lumba r spine , 2 view No observ ation record ed. [email or web address] Not Available 17:48:20 09/22/19 21 09/21/2020 , bette harman r No observ ation record ed. [facility] (Imaging) [address], [place], [address], 09/24/2020 12:04:09 12/30/19 21 12/28/2020 rhyth m strip , EKG* No observ ation record ed. [email or web address] [address], [place], [address], 12/30/2020 10:15:43 01/15/20 21 12/30/2020 XR, chest , 2 view No observ ation record ed. [email or web address] Not Available 12/30 15:54:21 01/29/20 21 01/28/2021 MRI, brain + brain stem, w/wo contr ast No observ ation record ed. [facility] [address] [place] [address], [place], [address], 01/29/2021 12:04:24 07/21/19 22 07/10/2021 XR, hip, unila teral No observ ation record ed. [email or web address], [place], [address], 07/21/2021 15:25:20 08/13/19 22 08/12/2021 CT, abdom en + pelvi s, w/ contr ast No observ ation record ed. [email or web address] [address], [place], [address], 08/12/2021 14:09:57 Result Notes None recorded. Problems Name Problem SNOMED Code Status Onset Date Resolution Date Notes Provider Name and Address Organization Details Recorded Time Lymphade nopathy 62955565 Completed 201308/24/2013 Location : None;Sev erity: Moderate ;Progres s: Stable;A dded By: Arabella Mock i;Dilan dd to Current Problems : NO Not Available [facility] 7 00:16:32 Endometr iosis of uterus 94248483 Completed 201312/04/2019 Location : None;Sev erity: Moderate ;Progres s: Stable;A dded By: Claudia Navarro;Add to Current Problems : NO DEANNA Jin Attn: Accounting ,[address] [facility], [place], [place], [address] [place] [address] , [facility] 14:24:08 Dominick santana [id number] Completed 201309/28/2013 Location : None;Sev erity: Moderate ;Progres s: Stable;A dded By: Claudia Navarro;Add to Current Problems : NO Not Available [facility] 7 00:16:36 General symptom 143172275 Completed 201304/06/2018 Location : None;Sev erity: Moderate ;Progres s: Stable;A dded By: Arabella Mock i;Dilan dd to Current Problems : YES [place] Mckeon Attn: Accounting ,[address] [facility], [place], [address] [place] [address] , [facility] 8 11:35:31 Elevated blood-pr essure reading without diagnosi s of hyperten magdi 292323719 Completed 201305/02/2014 Location : None;Sev erity: Moderate ;Progres s: Stable;A dded By: Claudia Navarro;Add to Current Problems : YES DEANNA Jin Attn: Accounting ,[address] [facility], [place], [address] [place] [address] 0 14:23:36 Cough 15780125 Completed 201304/03/2014 Location : None;Sev erity: Moderate ;Progres s: Stable;A dded By: Dianne Christine;Add to Current Problems : YES Not Available [facility] 7 00:16:38 Knee pain Completed 201406/05/2014 Location : None;Sev erity: Moderate ;Progres s: Stable;A dded By: Arabella Mock i;Dilan dd to Current Problems : YES Not Available [facility] 7 00:16:32 Acute gastriti s 63336036 Completed 201407/04/2014 Location : None;Sev erity: Moderate ;Progres s: Stable;A dded By: Arabella Mock i;Dilan dd to Current Problems : YES Not Available [facility] 7 00:16:32 Ganglion of joint 21822658 Completed 201407/04/2014 Location : None;Sev erity: Moderate ;Progres s: Stable;A dded By: Claudia Navarro;Add to Current Problems : YES Not Available [facility] 7 00:16:36 Periumbi lical pain 401193887 Completed 201407/04/2014 Location : None;Sev erity: Moderate ;Progres s: Stable;A dded By: Claudia Navarro;Add to Current Problems : YES Not Available [facility] 7 00:16:37 Elevated blood-pr essure reading without diagnosi s of hyperten magdi 934313524 Completed 201412/04/2019 Location : None;Sev erity: Moderate ;Progres s: Stable;A dded By: Altagracia Abraham; Add to Current Problems : YES DEANNA Jin Attn: Accounting ,[address] [place], [address] , [facility] 14:23:36 Generali zed abdomina l pain 935828364 Completed 201409/27/2014 Location : None;Sev erity: Moderate ;Progres s: Stable;A dded By: Arabella Mock i;A dd to Current Problems : YES Not Available [facility] 7 00:16:32 Lipoma 94177039 Completed 201401/23/2020 Location : None;Sev erity: Moderate ;Progres s: Stable;A dded By: Claudia Navarro;Add to Current Problems : YES DEANNA Jin Attn: Accounting ,[address] [place], [address] , [facility] 15:04:05 Epidermo id cyst of skin 338776036 Active 2014 Location : None;Sev erity: Moderate ;Progres s: Stable;A dded By: Claudia Navarro;Add to Current Problems : YES Not Available [facility] 7 00:16:37 Breathin g painful 70204109 Completed 201402/08/2015 Location : None;Sev erity: Moderate ;Progres s: Stable;A dded By: Claudia Navarro;Add to Current Problems : YES Not Available [facility] 7 00:16:37 Localize d, 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 552147508 Active 2014 Location : None;Sev erity: Moderate ;Progres s: Stable;A dded By: Claudia Navarro;Add to Current Problems : YES Not Available [facility] 7 00:16:37 Localize d superfic ial swelling of skin 236523400 Completed 201402/08/2015 Location : None;Sev erity: Moderate ;Progres s: Stable;A dded By: Claudia Navarro;Add to Current Problems : YES Not Available [facility] 7 00:16:37 Dyspnea 365799875 Completed 201401/10/2015 Location : None;Sev erity: Moderate ;Progres s: Stable;A dded By: Altagracia Abraham; Add to Current Problems : YES Not Available [facility] 7 00:16:38 Right upper quadrant pain 130716025 Completed 201403/13/2015 Location : None;Sev erity: Moderate ;Progres s: Stable;A dded By: Claudia Navarro;Add to Current Problems : YES Not Available [facility] 7 00:16:37 Localize d superfic ial swelling of skin 666821474 Completed 201508/22/2015 Location : None;Sev erity: Moderate ;Progres s: Stable;A dded By: Arabella Mock i;Dilan dd to Current Problems : YES Not Available [facility] 7 00:16:32 Pain of multiple joints 03155211 Active 2015 Location : None;Sev erity: Moderate ;Progres s: Stable;A dded By: Claudia Navarro;Add to Current Problems : YES Not Available [facility] 7 00:16:37 Generali zed anxiety disorder 65918346 Active 2018 DEANNA Jin Attn: Accounting ,[address] [place], [place], [address] [place] [address] , [facility] 9 16:33:34 Panic attack 032493362 Active 2019 DEANNA Jin Attn: Accounting ,[address] [place], [place], [address] [place] [address] , [facility] 0 14:36:40 [facility] hyperten magdi 66365879 Active 2019 DEANNA Jin Attn: Accounting ,[address] [place], [place], [address] [place] [address] , [facility] 0 14:47:06 Myocardi al infarcti on 80368749 Active 2019 DEANNA Jin Attn: Accounting ,[address] [place], [place], [address] [place] [address] , [facility] 0 15:03:50 Stented coronary artery 818900938 Active 2019 DEANNA Jin Attn: Accounting ,[address] [place], [place], [address] [place] [address] , [facility] 0 15:04:30 History of polyp of colon 638246750 Active 2019 DEANNA Jin Attn: Accounting ,[address] [place], [place], [address] [place] [address] , [facility] 0 15:05:09 Coronary arterios clerosis 87512038 Active 2019 DEANNA Jin Attn: Accounting ,[address] [place], [place], [address] [place] [address] , [place] [facility] 0 15:08:45 Prediabe lara 398962637 Active 2020 DEANNA Jin Attn: Accounting ,[address] [facility], [place], [address] , [place] [facility] 15:51:02 Problem Notes None recorded. Procedures Surgical History Date Name Laterality Status Provider Name and Address Organization Details Recorded Time 021 Joint Injection completed DEANNA Jin Attn: Accounting,[address] [facility], [place], [address], [place] [facility] 11/24/2020 14:31:21 018 Date of Last Mammogram completed April Smalls [place] [facility] 12/04/2019 13:57:55 018 Total hysterectomy completed [place] Mckeon Attn: Accounting,[address] [facility], [place], [address], [facility] 04/06/2018 11:47:15 018 laparoscopic excision of pelvic endometriosis completed NY Mckeon Attn: Accounting,[address] [facility], [place], [address], [facility] 04/06/2018 11:47:32 018 Appendectomy completed NY Mckeon Attn: Accounting,[address] [facility], [place], [address], [place] [facility] 04/06/2018 11:48:16 Gastrointestinal Surgery completed Babita Bowen [place] [facility] 08/10/2016 17:56:33 Imaging Results None recorded. Procedure Notes None recorded. Medical Equipment None Reported. Allergies Allergen ID Allergen Name Allergen Category Reaction Reaction Severity Criticality Documentation Date Start Date Code Code System Note Provider Name and Address Organization Details Recorded Time 066771 escitalop munir Not available hives moderate Not available 01/21/2019 26461 8 RxNorm DEANNA Jin Attn: Accountin g,[address] [facility], [place], [address], [place] [facility] 9 15:28:37 26913 Aleve medicatio n Not available Not available Not available 05/04/20162014 02968 1 RxNorm React ion: Facia l swell ing;S everi ty: Moder ate; Comme nt: Aller gy Type: Aller gy; Not Available [facility] 7 03:50:18 Medications Name Sig Start Date Stop Date Status Note LastModified by Organization Details LastModified Time gavilyte-g 236 gm solr 12/03 completed Not Available Not Available Not Available atorvastati n calcium 40 mg tabs 08/20 completed Not Available Not Available Not Available ramipril 5 mg caps 08/20 completed Not Available Not Available Not Available alprazolam 0.25 mg tabs take 1 tab by mouth daily as needed 09/15 completed Not Available Not Available Not Available brilinta 90 mg tabs 08/20 completed Not Available Not Available Not Available metoprolol succinate er 25 mg tb24 08/20 completed Not Available Not Available Not Available hydrochloro thiazide 50 mg tabs 08/20 completed Not Available Not Available Not Available nitroglycer in 0.4 mg subl 08/20 completed Not Available Not Available Not Available escitalopra m oxalate 20 mg tabs 08/20 completed Not Available Not Available Not Available losartan potassium 25 mg tabs 06/14 completed Not Available Not Available Not Available escitalopra m oxalate 10 mg tabs 08/20 completed Not Available Not Available Not Available losartan 50 mg tablet Take 1 tablet by mouth twice daily active Not Available Not Available No t Available cyclobenzap rine 10 mg tablet TAKE 1 TABLET BY MOUTH THREE TIMES DAILY NEEDED FOR MUSCLE SPASM. active Not Available Not Available No t Available atorvastati n 40 mg tablet TAKE 1 TABLET BY MOUTH ONCE DAILY active Not Available Not Available No t Available promethazin e-DM 6.25 mg-15 mg/5 mL oral syrup Take 5 mL every 4 hours by oral route as needed for 10 days. 05/03 completed Not Available Not Available Not Available prednisone 10 mg tablet active Not Available Not Available Not Available azithromyci n 250 mg tablet Take 2 tablet(s) by mouth on day 1 then 1 tablet every day for the next 4 days. 12/12/ 2019 01/03 /2020 completed Not Available Not Available Not Available hydrochloro thiazide 50 mg tablet TAKE 1 TABLET BY MOUTH ONCE DAILY active Not Available Not Available No t Available fluconazole 200 mg tablet 04/06 completed Not Available Not Available Not Available sucralfate 1 gram tablet Take 1 tablet 4 times a day by oral route. 07/03 completed Not Available Not Available Not Available metronidazo le 0.75 % (37.5 mg/5 gram) vaginal gel 08/10 completed Not Available Not Available Not Available ondansetron HCl 4 mg tablet 04/06 completed Not Available Not Available Not Available felodipine ER 5 mg tablet,exte nded release 24 hr Take 1 tablet by mouth once daily active Not Available Not Available No t Available Protonix 20 mg tablet,subhash yed release Take 1 tablet by mouth every morning 10/24 completed RxNor m: 97176 5;All ow Subst ituti on: True Not Available Not Available Not Available metronidazo le 500 mg tablet 04/06 completed Not Available Not Available Not Available clopidogrel 75 mg tablet TAKE 1 TABLET BY MOUTH ONCE DAILY active Not Available Not Available No t Available amlodipine 5 mg tablet TAKE 1 TABLET BY MOUTH ONCE DAILY 09/03 completed Not Available Not Available Not Available valacyclovi r 500 mg tablet TAKE 1 TABLET BY MOUTH TWICE DAILY FOR 3 DAYS AT ONSET OF SYMPTOMS active Not Available Not Available No t Available aspirin 81 mg tablet,subhash yed release Take one tablet PO daily 10/12 completed RxNor m: 82267 6;All ow Subst ituti on: True Not Available Not Available Not Available Nexium 20 mg capsule,del ayed release Take 1 capsule(s ) by mouth daily 05/27 completed RxNor m: 56648 8;All ow Subst ituti on: True Not Available Not Available Not Available Kenalog 40 mg/mL suspension for injection Take 40 mg by injection route. 12/29 completed Not Available Not Available Not Available meloxicam 7.5 mg tablet Take 1 tablet every day by oral route as needed. 07/03 completed Not Available Not Available Not Available oxycodone-a cetaminophe n 5 mg-325 mg tablet 04/06 completed Not Available Not Available Not Available alprazolam 0.25 mg tablet TAKE 1 TABLET BY MOUTH ONCE DAILY NEEDED 2020 active Not Available Not Available Not Avai lable famotidine 20 mg tablet Take 1 tablet by mouth twice daily as needed 2021 active Not Available Not Available Not Avai lable amitriptyli ne 25 mg tablet Take 1 tablet(s) by mouth at bedtime 08/28 completed RxNor m: [id number];All ow Subst ituti on: True Not Available Not Available Not Available benzonatate 100 mg capsule Take 1 capsule 3 times a day by oral route as needed. 10/12 completed Not Available Not Available Not Available losartan 25 mg tablet TAKE 1 TABLET BY MOUTH ONCE DAILY 05/03 completed Not Available Not Available Not Available nitroglycer in 0.4 mg sublingual tablet DISSOLVE ONE TABLET UNDER THE TONGUE EVERY 5 MINUTES NEEDED FOR CHEST PAIN. DO NOT EXCEED A TOTAL OF 3 DOSES IN 15 MINUTES active Not Available Not Available No t Available omeprazole 20 mg capsule,del ayed release TAKE 1 CAPSULE BY MOUTH ONCE DAILY active Not Available Not Available No t Available hydrochloro thiazide 25 mg tablet TAKE 1 TABLET BY MOUTH ONCE DAILY active Not Available Not Available No t Available metoprolol succinate ER 25 mg tablet,exte nded release 24 hr TAKE 1 TABLET BY MOUTH ONCE DAILY active Not Available Not Available No t Available Cheratussin AC 10 mg-100 mg/5 mL oral liquid 04/06 completed Not Available Not Available Not Available ibuprofen 600 mg tablet 04/06 completed Not Available Not Available Not Available polyethylen e glycol 3350 17 gram/dose oral powder 04/06 completed Not Available Not Available Not Available levofloxaci n 500 mg tablet 08/10 completed Not Available Not Available Not Available letrozole 2.5 mg tablet one daily 04/06 completed Not Available Not Available Not Available methylpredn isolone 4 mg tablets in a dose pack TAKE BY MOUTH DIRECTED ON INSIDE OF PACKAGE 12/29 completed Not Available Not Available Not Available colchicine 0.6 mg tablet Take 1 tablet every day by oral route. 04/06 completed Not Available Not Available Not Available dicyclomine 10 mg capsule TAKE 1 CAPSULE BY MOUTH THREE TIMES DAILY NEEDED active Not Available Not Available No t Available ramipril 5 mg capsule once daily 01/17 completed Not Available Not Available Not Available metoclopram marianela 10 mg tablet 04/06 completed Not Available Not Available Not Available escitalopra m 20 mg tablet Take 1 tablet by mouth once daily active Not Available Not Available No t Available Lexapro 10 mg tablet Take 1 tablet every day by oral route. 05/03 completed Not Available Not Available Not Available Asprin Ec Low Dose 81 mg tablet,subhash yed release Take 1 tablet every day by oral route. active Not Available Not Available No t Available bupropion HCl XL 150 mg 24 hr tablet, extended release TAKE 1 TABLET BY MOUTH ONCE DAILY active Not Available Not Available No t Available lidocaine (PF) 10 mg/mL (1 %) injection solution Take 1 mL by injection route. 2020 active Not Available Not Available Not Avai lable ProAir HFA 90 mcg/actuati on aerosol inhaler Inhale 2 puffs every 4 hours as needed 04/06 completed Not Available Not Available Not Available GaviLyte-G 236 gram-22.74 gram-6.74 gram-5.86 gram oral solution 10/05 completed Not Available Not Available Not Available Brilinta 90 mg tablet Take 1 tablet twice a day by oral route. 12/03 completed Not Available Not Available Not Available Brilinta 60 mg tablet Take 1 tablet twice a day by oral route. 01/22 completed Not Available Not Available Not Available Fluzone Quad (PF) 60 mcg (15 mcg x 4)/0.5 mL IM syringe PHARMACIS T ADMINISTE RED IMMUNIZAT ION ADMINISTE RED AT TIME OF DISPENSIN G 07/07 completed Not Available Not Available Not Available Vitals Date Recorded Body height Body mass index (BMI) Body weight Body temperature Oxygen saturation Heart rate Systolic And Diastolic Provider Name and Address Organization Details Last Updated DateTime 1 165.1 cm 34 kg/m2 76586.9 9 g 97.3 [degF] 99 % 57 /min 138/82 mm[Hg] Suyapa Ashraf [place] - [facility] 1 15:26:25 Date Recorded Body height Body mass index (BMI) Body weight Body temperature Oxygen saturation Heart rate Systolic And Diastolic Provider Name and Address Organization Details Last Updated DateTime 1 165.1 cm 33.8 kg/m2 02452.2 5 g 99.6 [degF] 96 % 57 /min 126/80 mm[Hg] Ubaldo Olguin MA [facility] 1 14:19:36 Date Recorded Body height Body mass index (BMI) Body weight Body temperature Oxygen saturation Heart rate Systolic And Diastolic Provider Name and Address Organization Details Last Updated DateTime 1 165.1 cm 33.8 kg/m2 87795.2 5 g 97.5 [degF] 99 % 57 /min 128/80 mm[Hg] Suyapa Ashraf MA [facility] 1 11:15:56 Date Recorded Body height Body mass index (BMI) Body weight Body temperature Oxygen saturation Heart rate Systolic And Diastolic Provider Name and Address Organization Details Last Updated DateTime 1 165.1 cm 33.4 kg/m2 49245.0 7 g 96.9 [degF] 99 % 57 /min 134/84 mm[Hg] Elisabeth Barone MA [facility] 1 14:10:04 Social History Question Answer Notes LastModified by Organizat ion Details LastModified Time Tobacco Smoking Status Never Smoker Ubaldo Olguin MA [facility], [facility] 07/03/2017 12:07:33 Do You Have An Advance Directive? No Information n ot available 07/07/2020 Are You Blind Or Do You Have Difficulty Seeing? Yes Information n ot available 07/07/2020 What Is Your Level Of Caffeine Consumption? None Information not available 07/07/2020 In The 14 Days Before Symptom Onset, Have You Had Close Contact With A Laboratory-confirm ed COVID-19 While That Case Was Ill? No Information n ot available 07/07/2020 In The 14 Days Before Symptom Onset, Have You Had Close Contact With A Person Who Is Under Investigation For COVID-19 While That Person Was Ill? No Information not available 07/07/2020 Have You Been To An Area Known To Be High Risk For COVID-19? No Information not available 07/07/2020 Are You Deaf Or Do You Have Serious Difficulty Hearing? No Information not available 07/07/2020 What Type Of Diet Are You Following? REGULAR Information n ot available 07/07/2020 What Was The Date Of Your Most Recent Tobacco Screening? 07/07/2020 Information not available 07/07/2020 What Is Your Relationship Status? Information not available 07/07/2020 Do You Use Your Seat Belt Or Car Seat Routinely? Yes Information not available 07/07/2020 Do You Have Smoke And Carbon Monoxide Detectors In Your Home? Yes Information not available 07/07/2020 Are You Passively Exposed To Smoke? No Information no t available 07/07/2020 Do You Use Sunscreen Routinely? Yes Information not available 07/07/2020 Has Tobacco Cessation Counseling Been Provided? No Information not available 07/07/2020 Sex: Female Functional Status Question Answer Note LastModified by Organizat ion Details LastModified Time Do you use any illicit or recreational drugs? No Information not available 07/07/2020 Do you or have you ever used any other forms of tobacco or nicotine? No Information not available 07/07/2020 What is your level of alcohol consumption? Occasional Information not available 07/07/2020 Are you currently employed? No Information not available 07/07/2020 Are you able to care for yourself independently? Yes Information not available 07/07/2020 What is your exercise level? Moderate Information not available 07/07/2020 Mental Status Question Answer Note LastModified by Organization D etails LastModified Time Do you feel stressed (tense, restless, nervous, or anxious, or unable to sleep at night)? [id number] Information not available 07/07/2020 Family History Relationship Description Onset Age of this Age Resolved Age Notes LastModified by Organization Details LastModified Time Mother Hypertensive disorder [email or web address] Not available 2016 17:56:56 Medical History Condition Response High Blood Pressure Y Muscle, Joint, or Bone Problems Y Acid Reflux (GERD) Y High Cholesterol Y Gynecological History Statement/Question Response Menses Monthly N If Post Menopausal, Age at Menopause 42 Date of Last Mammogram 12/12/2017 Obstetrics History GPAL:G 0 P 0 0 0 0 Immunizations Vaccine Type Date Status Note Provider Simba santana and Address Organization Details Recorded Time Tdap 1 completed Kiah Bianchi null, [place] [facility] 05/05/2022 11:15:14 Influenza, split virus, quadrivalent, preservative 0 completed [place] [facility] 05/05/2022 11:15:14 COVID-19, mRNA, LNP-S, PF, 30 mcg/0.3 mL dose 1 completed [place] [facility] 05/05/2022 11:15:13 COVID-19, mRNA, LNP-S, PF, 30 mcg/0.3 mL dose 1 completed [place] [facility] 05/05/2022 11:15:14 Influenza, split virus, quadrivalent, preservative 9 completed Not Available [facility] 05/18/2019 02:45:32 Hep A, adult 5 completed [place] [facility] 05/05/2022 11:15:13 Hep B, adolescent or pediatric 5 completed [place] [facility] 05/05/2022 11:15:14 rubella/mumps 5 completed [place] [facility] 05/05/2022 11:15:14 Past Encounters Encounter ID Performer Location Encounter Start Date Encounter Closed Date Diagnosis/Indication Diagnosis SNOMED-CT Code Diagnosis ICD10 Code Diagnosis IMO Codes Diagnosis Note [id number] Loretta Everett MD [facility] [address] [place] [address] 08/10/2016 14:35:54 08/10/2016 16:26:08 Localized, primary osteoarthritis of the pelvic region and thigh 946556315 M19.91 [place] paper work filled out today. Discussed signs of allergy to look for since allergic to aleve in the past [id number] Jigar Navarro MD [facility] [address] [place] [address] 02/21/2017 11:49:47 02/21/2017 17:15:22 Gastro-esophageal reflux disease with esophagitis 293339207 K21.0 Pain in throat 266896525 R07.0 [id number] Jigar Navarro MD [facility] [address] [place] [address] 07/03/2017 11:41:07 07/03/2017 14:40:33 Pain of multiple joints 30233884 M25.50 [id number] SHABBIR LIZ NP-Den [facility] [address] [place] [address] 10/12/2017 16:25:30 10/13/2017 12:39:29 Soft tissue swelling 263347851 M79.89 mild edema to anterior trap musclept concernedn o lymphadeno pathyUS trapezius areaf/u prn [id number] Jigar Navarro MD [facility] [address] [place] [address] 04/06/2018 10:57:02 04/09/2018 09:38:04 Pain of multiple joints 60128466 M25.50 FMLA papers filled out Acid reflux 330346422 K2 1.9 Third sound gallop 82190 4002 R01.2 Family his tory of diabetes mellitus 089867622 Z83.3 Erythrocyt e sedimentation rate above reference range 089161820 R70.0 Steatotic liver disease 968503330 K76.0 [id number] Mi Haro MD [facility] [address] [place] [address] 10/05/2018 10:47:29 10/05/2018 14:01:59 Acid reflux 415526194 K21.9 Anxiety 03620773 F41.9 [place] 7=17Instru cted to only take alprazolam if needed. When she has panic attackDisc ussed that alprazolam was not intended for daily use. As a standard, he should be on a maintainan ce med. I discussed options such as SSRI, SNRI etc. The goal is to contorl anxiety on a dialy basis so he does not have to depend on benzo. Verbalized understand ing. She will only take alprazolam as needed. [id number] Mi Haro MD [facility] [address] [facility] [address] [place] [address] 01/10/2019 11:53:48 01/12/2019 17:54:43 Acid reflux 857268741 K21.9 Anxiety 01043661 F41.9 [place] 7=17Instru cted to only take alprazolam if needed. When she has panic attackDisc ussed that alprazolam was not intended for daily use. As a standard, he should be on a maintainan ce med. I discussed options such as SSRI, SNRI etc. The goal is to contorl anxiety on a dialy basis so he does not have to depend on benzo. Verbalized understand ing. She will only take alprazolam as needed. she will restart lexapro and take at night she will follow back up in 4-6 weeks for eval Cough 07917630 R05 having chronic dry cough since starting Ramipril will change to ARB and let cardio know . [id number] Mi Haro MD [facility] [address] [facility] [address] [place] [address] 01/17/2019 13:57:20 01/18/2019 09:39:54 Essential hypertension 96913697 I[address] Yahir pan chronic dry cough since starting Ramipril will change to ARB and let cardio know . Since blood pressure is elevated, we will increase to 50 mg per day. I advised to take pressure at home and RTC in 1 week for nurse visit to check blood pressure. If she should start having chest pain, shortness of breath, or stroke like symptoms, go to ER immediatel y Right uppe r quadrant pain 314317791 R10.11 Anxiety 52844230 F41.9 [place] 7=17Instru cted to only take alprazolam if needed. When she has panic attackDisc ussed that alprazolam was not intended for daily use. As a standard, he should be on a maintainan ce med. I discussed options such as SSRI, SNRI etc. The goal is to contorl anxiety on a dialy basis so she does not have to depend on benzo. Verbalized understand ing. She will only take alprazolam as needed. she will restart lexapro and take at night she will follow back up in 4-6 weeks for eleanoralSirwin is very worried at all times that something is medically wrong with her. Her job is also stressful which add to her worry and increases her anxiety. [id number] Mi Haro MD [facility] [address] [facility] [address] [place] [address] 02/21/2019 14:26:43 02/22/2019 09:04:39 Anxiety 33757587 F41.9 [place] 7=14Instru cted to only take alprazolam if needed. When she has panic attackDisc ussed that alprazolam was not intended for daily use. As a standard, he should be on a maintainan ce med. . Verbalized understand ing. She will only take alprazolam as needed.She is very worried at all times that something is medically wrong with her. Her job is also stressful which add to her worry and increases her anxiety.st ates med works at night but not while she is at work would like to try counseling I recommende d changing or increasing med and she want to see counselor first before making changesshesther will follow up in 1 mo Essential hypertension 25793544 I[address] Yahir Zepeda oughing gone since stopping leslie.BP still elevated will increase losartan to 50 mg dailyshe will follow up in 1 mo Administra tion of influenza vaccine 57472821 Z23 [id number] Mi Haro MD [facility] [address] [facility] [address] [place] [address] 04/03/2019 13:30:44 04/04/2019 09:02:24 Gastritis 0089168 K29.70 Mixed anxi ety and depressive disorder 374741863 F41.8 [place] 7=13PHQ 9= 15 Instructed to only take alprazolam if needed. When she has panic attackDisc ussed that alprazolam was not intended for daily use. As a standard, he should be on a maintainan ce med. . Verbalized understand ing. She will only take alprazolam as needed.She is very worried at all times that something is medically wrong with her. Her job is also stressful which add to her worry and increases her anxiety. She is very anxious at OV today, she is having a hard time getting anxiety under control, we will increase lexapro and she will follow up with counseling , She will return to clinic in 1 mo. If at any time during this she feel like she can go back to work, I will allow that. Postviral cough 76695261 4 R05 Essential hypertension 10729506 I[address] Yahir Zarate [id number] Mi Haro MD [facility] [address] [facility] [address] [place] [address] 05/03/2019 09:38:43 05/06/2019 11:25:56 Generalized anxiety disorder 23292266 F41.1 will release back to work. Will release her on Monday05/07/2019RT C in 6 weeks to after she starts taking lexapro daily to reassess.C ont with counseling at [facility] [id number] Mi Haro MD [facility] [address] [place] [address] 08/21/2019 13:59:01 08/21/2019 15:49:18 Generalized anxiety disorder 01404658 F41.1 [place] 7= 18we will give her two weeks off. She will return to clinic in 2 weeks. To reassess. - I encourage you to follow-up with a counselor for further mental health support - Take medication as prescribed - Take medication at the same time every day and do not miss doses - Medication will take 2-3 weeks to reach full effect - Do not suddenly stop medication without consulting your provider first - Take time for yourself every day, get plenty of rest - Exercise can help elevate moods - If you do not have a good support system, talk to your provider about counseling options - Sometimes antidepres jazzmine medication s can make suicidal thoughts worse. If you are experienci ng these thoughts you should report to the ER immediatel y - You can also call the suicide hotline at 5-455-457- 8296 Panic attack [id number] F 41.0 [id number] Mi Haro MD [facility] [address] [facility] [address] [place] [address] 09/02/2019 15:05:26 09/02/2019 16:52:15 Microscopic hematuria 058566896 R31.21 CT [facility], we will get copies of labs. Neck pain 95403428 M54.2 [id number] Mi Haro MD [facility] [address] [facility] [address] [place] [address] 09/10/2019 10:18:19 09/10/2019 15:22:39 Microscopic hematuria R31.21 I advised pt to get her cysto and CT urogram done JEANNE. She scheduled them in September as she thought she needed to see Dr. Beth malhotra. I assured her this is a urinary problem and the cysto will allow visualizat ion of bladder. The CT urogram will allow visualizat ion of Kidney, ureter and bladder with enhancemen t of dye. Verbalized understand ing and she will call back an reschedule her appt for both earlier. [id number] Mckayla Tompkins MD [facility] [address] [place] [address] 11/12/2019 11:56:58 11/13/2019 10:57:57 Suspected COVID-19 345064906 Z03.509 [id number] Mi Haro MD [facility] [address] [facility] [address] [place] [address] 12/04/2019 13:43:54 12/05/2019 08:30:29 Cervical radiculopathy 13447657 M54.12 no improvemen t with PT Hyperlipidemia 47146019 E78.5 Pain of ri ght shoulder joint 0631194698 8423734 M25.511 no improvemen t with PT Essential hypertension 51699780 [address] Yahir Cummings ill call and let them know that BP remains elevated and I started her on NorvascRTC in 2 weeks for BP checkwork on exercise for 30 min 4-5 times per week Abnormal weight gain 161 938044 R63.5 [id number] Mi Haro MD [facility] [address] [place] [address] 01/02/2020 13:46:46 01/03/2020 07:42:59 Cervical radiculopathy 54499889 M54.12 she is wanting off work to do pt. I explained that she does not need to be off work for this. We can fill out FMLA to allow her to leaver early etc to go to PT appts. She will call [facility] back to reschedule appt for MRI Pain of ri ght shoulder joint [id number] 2241933 M25.638 [id number] Mi Haro MD [facility] [address] [place] [address] 01/23/2020 13:51:14 01/23/2020 16:14:07 Essential hypertension 13144788 I[address] Yahir Zarate work on exercise for 30 min 4-5 times per week Edema 445064343 R60.9 could be from amlodipine since she noticed since starting. but bp at goal for first time since MT. we will add HCTZ if swelling remains, we will cut amlodipine to 2.5 mg. RTC in 1 mo Pain of mu ltiple joints 19357561 M25.50 mom hx of lupushx of elevated CRP and Sed rate neg LACHO in past. Screening for malignant neoplasm of breast 797492553 Z12.39 Cyst of skin 927140402 L 72.9 Coronary arteriosclerosis 22158416 I25.10 on plavix and statin [id number] Mi Haro MD [facility] [address] [place] [address] 07/07/2020 14:56:21 07/08/2020 10:25:44 Essential hypertension 10986344 [address] Yahir Zarate work on exercise for 30 min 4-5 times per week swelling with amlodipine , will try felodipine , she is to check bp at homeand follow up in 1mo for bp check Coronary arteriosclerosis 61511539 I25.10 on plavix, ASA and statin Stented co ronary artery 454305864 Z95.5 Mixed anxi ety and depressive disorder 708858448 F41.8 stopped bupropion only want to take lexapro Take medicines exactly as directed. Call your doctor if you think you are having a problem with your medicine. Be kind to your body: Relieve tension with exercise or a massage. Get enough rest. Avoid alcohol, caffeine, nicotine, and illegal drugs. They can increase your anxiety level and cause sleep problems. Engage your mind. Get out and do something you enjoy. Go to a [employer] movie, or take a walk or hike. Plan your day. Having too much or too little to do can make you anxious. Keep a record of your symptoms. Discuss your fears with a good friend or family member, or join a support group for people with similar problems. Talking to others sometimes relieves stress. Get at least 30 minutes of exercise on most days of the week to relieve stress. Walking is a good choice. You also may want to do other activities , such as running, swimming, cycling, or playing tennis or team sports. Gastroesop hageal reflux disease 045610014 K21.9 Irritable bowel syndrome 89955044 K58.9 Prediabetes 304093294 R7 3.03 We reviewed current HgA1C and goal of <5.7 A1C. We discussed in great length carb counting, label reading and her daily carbohydra te goals. Choosing healthy carbs like fruits, veggies, whole grains, and lean proteins. Avoiding any sugar in beverages, and how exercise is important in maintainin g healthy blood sugars and a healthier weight. Recheck in 6mo Hyperlipidemia 50061919 E78.5 Fatigue 68569186 R53.83 [id number] Mi Haro MD [facility] [address] [place] [address] 09/15/2020 14:00:42 09/15/2020 16:28:08 Essential hypertension 40700839 I[address] Yahir Zarate work on exercise for 30 min 4-5 times per week Coronary arteriosclerosis 44914994 I25.10 on plavix, ASA and statin Stented co ronary artery 058003498 Z95.5 on plavix and asa Mixed anxi ety and depressive disorder 952200823 F41.8 only wants to take lexapro Take medicines exactly as directed. Call your doctor if you think you are having a problem with your medicine. Be kind to your body: Relieve tension with exercise or a massage. Get enough rest. Avoid alcohol, caffeine, nicotine, and illegal drugs. They can increase your anxiety level and cause sleep problems. Engage your mind. Get out and do something you enjoy. Go to a funny movie, or take a walk or hike. Plan your day. Having too much or too little to do can make you anxious. Keep a record of your symptoms. Discuss your fears with a good friend or family member, or join a support group for people with similar problems. Talking to others sometimes relieves stress. Get at least 30 minutes of exercise on most days of the week to relieve stress. Walking is a good choice. You also may want to do other activities , such as running, swimming, cycling, or playing tennis or team sports. Gastroesop hageal reflux disease 590799334 K21.9 Irritable bowel syndrome 58622446 K58.9 Prediabetes 695461042 R7 3.03 We reviewed current HgA1C and goal of <5.7 A1C. We discussed in great length carb counting, label reading and her daily carbohydra te goals. Choosing healthy carbs like fruits, veggies, whole grains, and lean proteins. Avoiding any sugar in beverages, and how exercise is important in maintainin g healthy blood sugars and a healthier weight. Recheck in 6mo Hyperlipidemia [id number] E78.5 Decreasing your cholestero l can help decreases your risk of heart disease. Reduce your dietary intake of fats to less than 30 percent of your total calories. Minimize use of trans fats. The following foods contain high levels of trans fat: fried foods like doughnuts, and baked goods including cakes, pie crusts, biscuits, frozen pizza, cookies, crackers, and stick margarines and other spreads. Eat a dietary pattern that focuses on fruits, vegetables , whole grains, low-fat dairy products, poultry, fish and nuts. Also limit red meat and sugary foods and beverages. Use naturally occurring, unhydrogen ated vegetable oils such as canola, safflower, sunflower or olive oil most often. Look for processed foods made with unhydrogen ated oil rather than partially hydrogenat ed or hydrogenat ed vegetable oils or saturated fat. Use soft margarine as a substitute for butter, and choose soft margarines (liquid or tub varieties) over harder stick forms. Look for 0 g trans fat on the Nutrition Facts label and no hydrogenat ed oils in the ingredient s list. Limit commercial ly fried foods and baked goods made with shortening or partially hydrogenat ed vegetable oils. Not only are these foods very high in fat, but that fat is also likely to be trans fat. Exercise at least 30 minutes on most days of the week. This can help increase your HDL (good cholestero l). If you smoke, please quit. Right uppe r quadrant pain [id number] R10.11 Microscopic hematuria 19 [id number] R31.21 seeing urology Cyst of skin [id number] L 72.9 referral was placed and appt was missed in MAR. number given to call and schedule appt. Adult heal th examination [id number] Z00.00 [id number] Mi Haro MD [facility] [address] [place] [address] 11/24/2020 10:58:36 11/24/2020 14:45:15 Steatotic liver disease [id number] K76.0 cont to haVe right upper quad pain. US of GB showed diffuse fatty liver.luz ruiz discussed wt loss and avoiding alcohol and tylenol Essential hypertension [id number] I[address] Yahir Zarate work on exercise for 30 min 4-5 times per weekat goal Obesity [id number] E66.9 Serum amyl ase above reference range [id number] R74.8 Trochanter ic bursitis of right hip [id number] 69488 M70.61 RTC if no improvemen t in the next 2-3 weeks. Low back pain [id number] M54.5 [id number] Mi Haro MD [facility] [address] [place] [address] 12/29/2020 13:48:15 12/29/2020 15:30:30 Generalized anxiety disorder [id number] F41.1 Benign par oxysmal positional vertigo [id number] H81.10 On examina tion - Romberg positive [id number] R26.89 WILL FOLLOW UP AFTER mri WITH HER [id number] Mi Haro MD [facility] [address] [place] [address] 01/27/2021 09:13:16 01/27/2021 13:28:54 Generalized anxiety disorder [id number] F41.1 Discussed that alprazolam was not intended for daily use. As a standard, he should be on a maintenanc e med. I discussed options such as SSRI, SNRI etc. Currently she is on SSRI but with only partial response. The goal is to control anxiety on a dialy basis so he does not have to depend on benzo. So I have explained adding additional med to help control on daily basis. Verbalized understand ing. We discussed building a dependency to alprazolam is she starts taking every night. She will only take alprzolam if needed such as having a panic attack. She will now start taking bupropion that was prescribed at last OV and RTC in 1 mo for follow up. She has been advised that if any issues arise with new med to call office right away. Panic attack [id number] F 41.0 Health Concerns Section Related Observation LastModified by Organization Detai ls LastModified Time None Recorded Concern Status LastModified by Organization Details LastModified Time None Recorded Advance Directives Directive N: Payers Insurance Date Sequence Insurance Name Policy Number Policy Ramírez Covered Member ID Ramírez Member ID Guarantor Name 10/29/2021 1 [facility] [id number] Gil Ochoa [id number] Mavis Ochoa 10/30/[address] [facility] [id number] Gil Ochoa [id number] Mavis Yoseph Delvin Ochoa 03/27/2017 3 [facility] [id number] Gil Ochoa [id number] Mavis Ochoa 01/17/2017 3 [facility] PRIOR TO 2020 (MEDICAID REPLACEMENT - HMO) Mavis Hargrove [id number] Mavis Ochoa 12/02/2019 1 [facility] [id number] Mavis Hargrove [id number] Mavis Ochoa 11/05/2024 2 [place] [employer] Mavis Hargrove [id number] Mavis Ochoa Notes Date Note Type Note Provider Name and Address Organization Details Recorded Time 07/08/19 21 text/htm l Hypertension F/UReported by PatientHPIFor associated symptoms, patient reportsshortness of breathandedemabut reportsno dizziness,no lightheadedness,no chest pain, andno palpitations. For lifestyle, patient reportsregular exerciseandlimiting/avoiding salt. For medications, patient reportstaking medications as directedandno side effects from medication. Anxiety/DepressionReported by PatientHPIFor quality, patient reportsmood worse (at work),increased anxiety, andpanic symptoms (2 to 3 times a month). For severity, patient reportsinterference with household activities,interference with sleep, andinterference with workbut reportsdenies suicidal ideationsandable to maintain relationships. For context, patient reportsfamily problems (grandmother and mom are sickly). For associated symptoms, patient reportshigh irritability,anxiety,depressio n,loneliness,insomnia,hallucin ations,restlessness/agitation, social withdrawal, andshortness of breathbut reportsdenies homicidal ideations,no significant weight gain, andno significant weight loss. For duration, patient reportssymptoms lasting over 2 weeks. For onset/timing, patient reportsstill present. For modifying factors, patient reportsmedications as directed.currently out of meds so anxiety is worse. EdemaReported by PatientHPIFor quality, patient reportslegs do not swell equallyandpainful(ankles do not swell equally, patient states that feet are getting worse and causing her a lot of pain.). For associated symptoms, patient reportsshortness of breath during exertionandswelling in lower legs onlybut reportsno nocturia,no significant weight gain,no cough,no orthopnea,no paroxysmal nocturnal dyspnea (pnd),no chest pain, andno palpitations. For severity, patient reportsmoderate. For duration, patient reportsconstant. For onset/timing, patient reportsgradual onset. For context, patient reportsno prior history of edema,no prior history of deep vein thrombosis,normal salt intake, andno recent travel. For modifying factors, patient reportsrelieved by position (elevating legs). For location, (both feet and ankles). DEANNA Jin Attn: Accounting[address] [place], [address], [place] [facility] 07/07/2020 16:21:41 09/16/19 21 text/htm l here for annual exam. Has hx of cyst on head, has a few that have showed up one is tender would like referral to have them removed. Previous provider who removed other is no longer in practice in this area. DEANNA Jin Attn: Accounting[address] [facility], [place], [address], [facility] [place] 09/15/2020 16:09:02 11/25/19 21 text/htm l Abdominal PainReported by PatientAbdominal PainFor quality, patient reportsaching(she said she has been having pain on right upper side towards back that can cause severe pain that takes her breath.). For associated symptoms, patient reportsheartburn,nausea,vomiti ng,diarrhea, andconstipationbut reportsno fever,no chills, andno shortness of breath. For location, patient reportsruq(abdominal pain has gotten better since she has started working out. she would like to discuss lab work and has questions about kidneys and hpv.). For severity, patient reportsmoderate. For duration, patient reportsconstant. For onset/timing, patient reportsbetter (just a little bit). For other, patient reportsdenies possible . Back PainReported by PatientHPIFor location, patient reportspain radiating to the legs(hip). For quality, patient reportssharp. For severity, patient reportsworsening. For duration, patient reportsacute(started working out about 3 mo ago). For onset/timing, patient reportsrecurrent episode.has been working out and doing squats also doing back exercises.ROS as noted in the HPI patient also says she has been getting pain in right hip and thigh and groin area and says she feels like her right leg is bigger than her left. DEANNA Jin Attn: Accounting[address] [facility], [place], [address], [facility] [place] 11/24/2020 14:32:56 12/30/19 21 text/htm l Anxiety/DepressionReported by PatientHPIFor quality, patient reportssymptoms worse in the evening,symptoms worse during the day,increased anxiety, andpanic symptoms. For severity, patient reportsinterference with household activitiesandinterference with sleepbut reportsdenies suicidal ideationsandable to maintain relationships. For context, patient reportsmajor life stressors. For associated symptoms, patient reportsanxiety,depression,decr eased effectiveness/productivity, andheadaches (left side of head)but reportsdenies homicidal ideations,no significant weight gain,no significant weight loss,no visual/auditory hallucinations,no delusions,no shortness of breath,mood good,no crying spells,no panic,no isolation,sleeping well,appetite good,no apathy, andmaintaining functionality(vertigo or dizzy). For duration, patient reportsfrequentandsymptoms lasting over 2 weeks. For onset/timing, patient reportsstill present. For modifying factors, patient reportsmedications as directed.states she was woke up about 1 am feeling panicgot up to use restroom and cause stomach was hurting.hands were tingly did not want to go to ER cause she did not want to scare daughterFinally fell off to sleep at 4 am. When she got up to take her daughter to school, she just felt tingly over and nauseated. Light headed/dizzy . She got her daughter to school, then felt nauseated and felt like balance was off had to nail puller on side of road, then she got home and called ambulance ROS as noted in the HPI DEANNA Jin Attn: Accounting[address] [place], [address], [place] [facility] 12/29/2020 15:02:55 01/28/20 21 text/htm l Anxiety/DepressionReported by PatientHPIFor quality, patient reportssymptoms worse in the evening,symptoms worse during the day,increased anxiety, andpanic symptoms. For severity, patient reportsinterference with household activitiesandinterference with sleepbut reportsdenies suicidal ideationsandable to maintain relationships. For context, patient reportsmajor life stressors. For associated symptoms, patient reportsanxiety,depression,decr eased effectiveness/productivity, andheadaches (left side of head)but reportsdenies homicidal ideations,no significant weight gain,no significant weight loss,no visual/auditory hallucinations,no delusions,no shortness of breath,mood good,no crying spells,no panic,no isolation,sleeping well,appetite good,no apathy, andmaintaining functionality(vertigo or dizzy). For duration, patient reportsfrequentandsymptoms lasting over 2 weeks. For onset/timing, patient reportsstill present. For modifying factors, patient reportsmedications as directed.at the beginning of , she states she was woke up about 1 am feeling panicgot up to use restroom and cause stomach was hurting.hands were tingly did not want to go to ER cause she did not want to scare daughterFinally fell off to sleep at 4 am. When she got up to take her daughter to school, she just felt tingly over and nauseated. Light headed/dizzy . She got her daughter to school, then felt nauseated and felt like balance was off had to nail puller on side of road, then she got home and called ambulance.The same scenario happened again the following and she went to ER again.states come to think of it, she has a lot going on with starting a new job, the pandemic and her child, she is constantly worries. She feels this is a trigger for this happening all the sudden, she did not miner pick bupropion as directed in early dec.She was using alprazolam over the last month before bed to prevent panic attack. Sleep ProblemsReported by PatientSleep HPIFor general sleep, patient reportssnoring,insomnia: awakening in the middle of the night, andearly morning headachebut reportsno sleep apneaandnot sleepy during the day (daytime somnolence)(pt wakes up in the middle night several times at night.). For quality, patient reportsloud snoringbut reportsno gasping for air,no hyponasal speech, andno frequent breathing through the mouth. For pain disturbing sleep, patient reportsmiddle of the back. For associated symptoms, patient reportshistory of sleep disorderbut reportsno sleep problems,no hypertension,no history of stroke,no heart disease,no automobile accidents as a result of sleepiness,no increased motor activity at night,does not act out dreams,no history of sleep disorder,no family history of sleep disorder,no restless leg symptoms, andgood sleep hygiene. For onset/timing, patient reportsgradual onset. For severity, patient reportsdoes not interfere with daily activities,no drowsiness while driving,drowsiness not affecting work, andmoderate. For location of sleep apnea, patient reportsno enlarged tonsils,no nasal passage blockage,no throat pain,no feeling of tightness in throat,no dryness of mouth, andno chest congestion. For narcolepsy symptoms, patient reportsno cataplexy. For prescribed sleep medications, patient reportsnot taking medication to help sleep (pt would like rx to help her sleep).Pt has anxiety and she does take medication. Pt has anxiety attack while she was sleeping. Pt tried to use Bra[employer]'s Pure Z's melatonin to help her sleep, but she states the medication didn't help. Does not have trouble falling asleep.states she has a w feeling in her legs when she is driving.ROS as noted in the HPI DEANNA Jin Attn: Accounting,[address] [place], [address], [facility] 01/27/2021 10:45:55 OBGyn Episode No OBEpisode recorded.
--- OUTSIDE RECORDS SUMMARY | 2025-04-12 08:25 | XMS_ITS | Continuity of Care Document ---
Author Organization [place] [facility] [employer], [facility] [place] Address [address] [place] [address] Assessment Encounter Date Assessment Date Assessment LastModified by Organization Details LastModified Time 02/03/2025 02/03/2025 HPI: 54 year old female who presents today for a follow up of right displaced trimalleolar fracture. This is a result of a fall on 10/01. Currently 4 months from DOI. Surgery was recommended, and she opted for nonoperative management with a cast. Treatment plan last visit was transition from a cast to a CAM boot, progressive WB, and physical therapy. She reports intermittent compliance with CAM boot and has not scheduled PT. She states that recently she was not wearing her boot a rolled her ankle again. Currently rates her pain 6/10, not taking anything for pain management. Physical Exam: General: Normal appearance. No acute distress. Inspection: Minimal swelling. No evidence of erythema, bruising or deformity. Palpation: Moderate tenderness over the lateral ankle and mild tenderness over the medial ankle ROM: Limited ROM due to stiffness Sensation: Sensation intact. Imaging: XR reviewed, demonstrating a lateral and posterior malleoli fracture with evidence of callus formation. Also, a medial malleolus fracture with visible fracture line and evidence of callus formation, but also possible minimal interval displacement compared to the previous XR in November. Assessment & Plan: We will continue with nonoperative management. Discussed the importance of wearing the CAM boot, especially when in public. She should come out of the boot to do gentle ROM, hygiene, and sleep. PT reordered. Discussed the benefits of PT, especially with her fracture, to help manage complications like stiffness. I did provide her with a gentle ROM exercise handout. Rx for Voltaren Gel. If insurance won't cover it, she may get it OTC. Unable to take NSAIDs due to blood thinner. 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 If so, we can prescribe either one approved by cardiology. Follow Up: 4 weeks with XR. All questions were answered. Patient verbalized understanding of treatment plan [email or web address] Not available 02/04/2025 21:03:35 Plan of Treatment Reminders Order Date Submit Date Provider Last Modified By Organization Details Last Modified Time Details Appointments None recorded. Lab None recorded. Referral physical therapist referral - EVAL AND TREAT FOR PAIN AND STIFFNESS 2024 [facility], [address], [place], [address], 21:30:55 Procedures None recorded. Surgeries None recorded. Imaging XR, ankle, 3 or more view [facility] [place], [address], [place], [address], 21:30:55 Medication Orders Voltaren Arthritis Pain 1 % topical gel [address] [facility], [address], [place], [address], 21:30:55 Patient TargetsNo targets recorded. Patient InstructionsNo instructions recorded. Reason for Referral Physical Therapist Referral for Closed trimalleolar fracture EVAL AND TREAT FOR PAIN AND STIFFNESS Referring Physician: Rhea Bettencourt, Orthopedic Surgery, Encounter Date: 02/03/2025 Results Created Date Observation Date Name Description Value Unit Range Abnormal Flag Note LastModifiedBy Organization Detail LastModifiedTime 02/04/20 25 XR, ankle , 3 or more view No observ ation record ed. bharath [facility] [place] [address], [place], [address], 02/04/2025 21:03:38 04/07/20 25 XR, ankle , 3 or more view No observ ation record ed. bharath [facility] [place] [address], [place], [address], 04/08/2025 18:19:45 Result Notes None recorded. Problems Name Problem SNOMED Code Status Onset Date Resolution Date Notes Provider Name and Address Organization Details Recorded Time Pain in right sacroiliac joint 7204132500665 9107 Active 2021 Not Available [facility] 3 01:05:43 Pain of right hip joint 5327178666375 02 Active 2021 Not Available [facility] 3 01:05:43 Trochanter ic bursitis of right hip 8999773757350 00 Active 2021 Not Available [facility] 3 01:05:43 Tendinitis of right gluteal tendon 9732944644437 02 Active 2023 Rhea Bettencourt PA-C [address], [place], [address] , [place] [employer] [facility] [employer] 4 10:59:08 Pain of hip region 17042562 Active 2024 Pam Vásquez CNA null, [place] [facility] 5 09:18:27 Ankle pain 382489417 Active 2024 Ally Douglas null, [place] [facility] [employer] 5 15:24:16 Pain in right lower limb 937795786 Active 2024 Ally Douglas null, [employer] [facility] [employer] 5 15:24:30 Closed trimalleol ar fracture 3611810 Active 2024 Rhea Bettencourt PA-C [address], [place], [address] , [place] [employer] [facility] 5 21:53:13 Closed trimalleol ar fracture 9616611 Active 2024 Tika Blanchard null, [facility] 5 15:41:58 Problem Notes None recorded. Procedures Surgical History Date Name Laterality Status Provider Name and Address Organization Details Recorded Time 9 open heart surgery completed Pam Vásquez CNA [facility] 12/14/2023 09:46:49 Imaging Results None recorded. Procedure Notes None recorded. Medical Equipment None Reported. Allergies Allergen ID Allergen Name Allergen Category Reaction Reaction Severity Criticality Documentation Date Start Date Code Code System Note Provider Name and Address Organization Details Recorded Time 78105 Aleve medicatio n hives Not available Not available 12/14/2023 75732 1 RxNorm CHRISTIANE Silva [facility] 4 09:40:51 36516 naproxen medicatio n hives Not available Not available 04/07/20252019 7258 RxNorm Not Available [employer] 5 04:07:06 33782 Shellfish (substanc e) food,medi cation hives Not available [facility] 04/07/20252020 75350 9006 SNOMED Not Available [employer] 5 04:07:34 Medications Name Sig Start Date Stop Date Status Note LastModified by Organization Details LastModified Time losartan 50 mg tablet TAKE 1 TABLET BY MOUTH TWICE DAILY active Not Available Not Available No t Available cyclobenzap rine 10 mg tablet TAKE 1 TABLET BY MOUTH THREE TIMES DAILY NEEDED FOR MUSCLE SPASM 09/18 completed Not Available Not Available Not Available atorvastati n 40 mg tablet TAKE 1 TABLET BY MOUTH ONCE DAILY . APPOINTME NT REQUIRED FOR FUTURE REFILLS active Not Available Not Available No t Available promethazin e-DM 6.25 mg-15 mg/5 mL oral syrup TAKE 5 ML BY MOUTH EVERY 4 HOURS NEEDED FOR COUGH active Not Available Not Available No t Available prednisone 10 mg tablet TAKE 1 TABLET BY MOUTH 3 TIMES DAILY FOR 3 DAYS, THEN 1 TABLET TWICE DAILY FOR 2 DAYS, THEN 1 TABLET FOR 1 DAY. 12/13 completed Not Available Not Available Not Available azithromyci n 250 mg tablet TAKE 2 TABLETS BY MOUTH ON DAY 1, AND THEN TAKE 1 TABLET BY MOUTH ONCE A DAY ON DAY 2 THROUGH DAY 5 active Not Available Not Available No t Available benzonatate 200 mg capsule TAKE 1 CAPSULE BY MOUTH THREE TIMES DAILY NEEDED FOR COUGH active Not Available Not Available No t Available hydrocodone 5 mg-acetamin ophen 325 mg tablet TAKE 1 TABLET BY MOUTH EVERY 6 HOURS NEEDED FOR PAIN active Not Available Not Available No t Available prednisone 20 mg tablet TAKE 3 TABLETS BY MOUTH ONCE DAILY FOR 5 DAYS 12/13 completed Not Available Not Available Not Available felodipine ER 5 mg tablet,exte nded release 24 hr TAKE 1 TABLET BY MOUTH ONCE DAILY active Not Available Not Available No t Available clonazepam 0.5 mg tablet TAKE 1 TABLET BY MOUTH TWICE DAILY NEEDED FOR SEVERE ANXIETY active Not Available Not Available No t Available terconazole 0.8 % vaginal cream INSERT ONE APPLICATO RFUL VAGINALLY ONCE DAILY AT BEDTIME FOR THREE DAYS 12/13 completed Not Available Not Available Not Available Space Chamber USE WITH ALBUTEROL INHALER active Not Available Not Available No t Available phentermine 37.5 mg tablet TAKE 1 TABLET BY MOUTH ONCE DAILY 30 MINUTES BEFORE OR 1-2 HOURS AFTER BREAKFAST 09/18 completed Not Available Not Available Not Available clopidogrel 75 mg tablet TAKE 1 TABLET BY MOUTH ONCE DAILY active Not Available Not Available No t Available lamotrigine 25 mg tablet TAKE 1 TABLET BY MOUTH ONCE DAILY IN THE MORNING FOR 2 WEEKS, THEN 2 TABLETS ONCE DAILY IN THE MORNING. 09/18 completed Not Available Not Available Not Available prednisone 10 mg tablets in a dose pack Take 1 tab by mouth, 3 times a day for 3 daysTake 1 tab by mouth 2 times a day for 2 daysTake 1 tab by mouth once a day for 1 day 04/02 completed Not Available Not Available Not Available Marcaine 0.5 % (5 mg/mL) injection solution Take 20 mg by injection route. 09/18 completed Not Available Not Available Not Available famotidine 20 mg tablet TAKE 1 TABLET BY MOUTH TWICE DAILY NEEDED . APPOINTME NT REQUIRED FOR FUTURE REFILLS 04/02 completed Not Available Not Available Not Available Kenalog 10 mg/mL suspension for injection Take 20 mg by injection route. 09/18 completed [facility]: 0003- 0494- 20 Not Available Not Available Not Available benzonatate 100 mg capsule TAKE 1 CAPSULE BY MOUTH THREE TIMES DAILY NEEDED FOR COUGH 12/13 completed Not Available Not Available Not Available prednisone 50 mg tablet TAKE 1 TABLET BY MOUTH ONCE DAILY 12/13 completed Not Available Not Available Not Available nitroglycer in 0.4 mg sublingual tablet active Not Available Not Available Not Available codeine 10 mg-guaifene sin 100 mg/5 mL oral liquid TAKE 5 ML BY MOUTH EVERY 6 HOURS NEEDED FOR COUGH 12/13 completed Not Available Not Available Not Available hydrochloro thiazide 25 mg tablet TAKE 1 TABLET BY MOUTH ONCE DAILY 04/02 completed Not Available Not Available Not Available metoprolol succinate ER 25 mg tablet,exte nded release 24 hr TAKE 1 TABLET BY MOUTH ONCE DAILY active Not Available Not Available No t Available methylpredn isolone 4 mg tablets in a dose pack TAKE BY MOUTH DIRECTED ON INSIDE OF PACKAGE active Not Available Not Available No t Available albuterol sulfate HFA 90 mcg/actuati on aerosol inhaler INHALE 2 PUFFS BY MOUTH EVERY 6 HOURS NEEDED FOR WHEEZING active Not Available Not Available No t Available lamotrigine 100 mg tablet TAKE 1 TABLET BY MOUTH ONCE DAILY active Not Available Not Available No t Available amoxicillin 875 mg-potassiu m clavulanate 125 mg tablet TAKE 1 TABLET BY MOUTH EVERY 12 HOURS 12/13 completed Not Available Not Available Not Available escitalopra m 20 mg tablet TAKE 1 TABLET BY MOUTH ONCE DAILY active Not Available Not Available No t Available aripiprazol e 5 mg tablet TAKE 1 TABLET BY MOUTH ONCE DAILY AT NIGHT AT BEDTIME active Not Available Not Available No t Available bupropion HCl XL 150 mg 24 hr tablet, extended release TAKE 1 TABLET BY MOUTH ONCE DAILY IN THE MORNING active Not Available Not Available No t Available Marcaine (PF) 0.5 % (5 mg/mL) injection solution Take 20 mg by injection route. 09/18 completed Not Available Not Available Not Available lidocaine (PF) 5 mg/mL (0.5 %) injection solution Take 60 mg by injection route. 12/13 completed Not Available Not Available Not Available Symbicort 160 mcg-4.5 mcg/actuati on HFA aerosol inhaler INHALE 2 PUFFS BY MOUTH EVERY 12 HOURS 12/13 completed Not Available Not Available Not Available GaviLyte-G 236 gram-22.74 gram-6.74 gram-5.86 gram oral solution TAKE 8OZ BY MOUTH EVERY 10 MINUTES UNTIL COMPLETE OR CLEAR 05/09 completed Not Available Not Available Not Available azelastine 205.5 mcg (0.15 %) nasal spray USE 1 SPRAY(S) IN EACH NOSTRIL EVERY DAY AT BEDTIME 12/13 completed Not Available Not Available Not Available ropivacaine (PF) 5 mg/mL (0.5 %) injection solution Take 20 mg by injection route. 12/13 completed Not Available Not Available Not Available Procto-Med HC 2.5 % topical cream perineal applicator APPLY 1 APPLICATI ON BY RECTUM TWICE DAILY FOR 2 WEEKS (14 DAYS) 12/13 completed Not Available Not Available Not Available Voltaren Arthritis Pain 1 % topical gel APPLY 2 GRAMS TO THE AFFECTED AREA(S) BY TOPICAL ROUTE 4 TIMES PER DAY 2024 active Not Available Not Available Not Avai lable Wegovy 1.7 mg/0.75 mL subcutaneou s pen injector INJECT 1.7MG SUBCUTANE OUSLYONCE WEEKLY (EVERY 7 DAYS) FOR 4 WEEKS active Not Available Not Available No t Available Wegovy 1 mg/0.5 mL subcutaneou s pen injector INJECT 1MG SUBCUTANE OUSLY ONCE WEEKLY active Not Available Not Available No t Available Wegovy 0.25 mg/0.5 mL subcutaneou s pen injector INJECT 0.25 MG SUBCUTANE OUSLY ONCE WEEKLY. ADMINISTE R WEEKS 1 THROUGH 4 OF THERAPY. 09/18 completed Not Available Not Available Not Available Wegovy 0.5 mg/0.5 mL subcutaneou s pen injector INJECT 0.5MG SUBCUTANE OUSLY ONCE A WEEK 09/18 completed Not Available Not Available Not Available Vitals Date Recorded Body height Body mass index (BMI) Body weight Provider Name and Address Organization Details Last Updated DateTime 02/03/2025 167.64 cm 32.3 kg/m2 97183.47 g Pam Vásquez CNA [place] [facility] [place] [employer] 02/03/2025 15:13:05 Social History Question Answer Notes LastModified by Organizat ion Details LastModified Time Tobacco Smoking Status Never Smoker Not Available [employer] 06/30/2022 01:04:24 What Was The Date Of Your Most Recent Tobacco Screening? 04/07/2025 [email or web address] Information not available 04/07/2025 Sex: Unknown Functional Status Question Answer Note LastModified by Organizat ion Details LastModified Time What is your level of alcohol consumption? None [id number] Information not available 06/30/2022 Mental Status None recorded. Family History Relationship Description Onset Age of this Age Resolved Age Notes LastModified by Organization Details LastModified Time Father Hypertensive disorder [id number] Not available 06/30/2022 01:05:01 Mother Hypertensive disorder [id number] Not available 06/30/2022 01:05:01 Brother Hypertensive disorder [id number] Not available 06/30/2022 01:05:01 Brother Diabetes mellitus [id number] Not available 06/30/2022 01:05:01 Maternal Grandmother Diabetes mellitus [id number] Not available 06/30/2022 01:05:01 Mother Diabetes mellitus [email or web address] Not available 2023 09:45:30 Father Heart disease [email or web address] Not available 2023 09:45:42 Notes:cancer-dad lupus -moth er Medical History Condition Response HEART ARRHYTHMIA Y ARTHRITIS Y USE OF BLOOD THINNERS Y BLOOD CLOTS Y HEART DISEASE/HEART PROBLEMS Y HYPERTENSION Y Gynecological HistoryNo gynecological history recorded. Obstetrics History GPAL:G 0 P 0 0 0 0 Past Encounters Encounter ID Performer Location Encounter Start Date Encounter Closed Date Diagnosis/Indication Diagnosis SNOMED-CT Code Diagnosis ICD10 Code Diagnosis IMO Codes Diagnosis Note [id number] Sean Shukla MD [facility] [place] [address] [place] [address] 02/03/2025 15:09:37 02/03/2025 16:05:07 Ankle pain 149701120 M25.571 [id number] Closed tri malleolar fracture 2529558 S82.851D 794593 Health Concerns Section Related Observation LastModified by Organization Detai ls LastModified Time None Recorded Concern Status LastModified by Organization Details LastModified Time None Recorded Payers Encounter Date Sequence Insurance Name Policy Number Policy Ramírez Covered Member ID Ramírez Member ID Guarantor Name 02/03/2025 1 [place] [id number] Gil Ochoa [id number] Mavis Rubin 02/03/2025 2 [place] Mavis Hargrove [id number] Mavis Rubin OBGyn Episode No OBEpisode recorded.
--- OUTSIDE RECORDS SUMMARY | 2025-04-12 08:25 | XMS_ITS | Data Portability ---
Author Organization [place] [facility] [place], Main Office Address [address] [place] [address] Assessment Encounter Date Assessment Date Assessment LastModified by Organization Details LastModified Time 10/30/2024 10/30/2024 54-year-old thelma portillo presents for follow-up of her right ankle. She has a displaced ankle fracture that she did not want surgery for and we have been treating with a cast. She reports she has been walking on it, and the bottom of her cast is dirty consistent with that. Cast was removed. She still has tenderness over the medial and lateral ankle. She has sensation intact light touch, 2+ DP pulse X-rays demonstrate the fractures of the medial and lateral malleoli with a small amount of displacement She wants to continue with non operative management. We placed her into a new short-leg cast. We emphasized that she needs to maintain nonweightbearing and avoid walking on it. We discussed the increased risk of arthritis with the displacement of her fracture. We will see her back in 2 weeks for recheck and repeat x-rays out of the cast. Not available 10/30/2024 14:04:42 11/13/2024 11/13/2024 HPI: 54 year old female who presents today for a follow up of right displaced trimalleolar fracture. This is result of a fall on 10/01. Currently 6 weeks from DOI. Surgery was recommended and she opted for nonoperative management with a cast. Reports noncompliance with NWB. She will WB when she is taking care of her father. Additionally, she has acquired a knee scooter, which she is currently utilizing. Physical Exam: General: Normal appearance. No acute distress. Knee scooter present Inspection: Minimal swelling. No evidence of erythema, bruising or deformity. Palpation: Tenderness over the lateral and medial ankle Sensation: Sensation intact. Vascular: DP 2+ Imaging: XR reviewed, demonstrating mild displacement of the medial, lateral, and posterior malleoli with evidence of callus formation. Assessment & Plan: She wants to continue with nonoperative management. Discussed increased risk of arthritis. New short leg cast applied. Emphasized the importance of remaining NWB Discussed adequate intake of vitamin D, calcium, and protein to maximize fracture healing. Follow Up: 2-3 weeks with XR. All questions were answered. Patient verbalized understanding of treatment plan [email or web address] Not available 11/13/2024 21:54:04 12/04/2024 12/04/2024 54-year-old thelma portillo presents for follow-up of her right ankle. She had a displaced ankle fracture which she did not want surgery for so we have been treating conservatively. She has been in a cast. She reports pain is getting better, currently 3/10. Cast was removed. She still has some mild tenderness over the lateral ankle, more tenderness over the medial ankle. She does have some stiffness in the ankle. X-rays reviewed, demonstrating a healing lateral malleolus fracture, no interval displacement. She also has a medial malleolus fracture with a fracture line still visible We will transition her from a cast to a boot. She is currently about 2 months out from her injury. We will send her to physical therapy, when they are ready she may begin with progressive weight-bearing and seeing if she is able to put weight on it. We will see her back in 4 weeks with repeat x-rays. She is in agreement with plan. Not available 12/04/2024 13:37:52 02/03/2025 02/03/2025 HPI: 54 year old female [...] meloxicam and advised her to ask her film sound engineer if it is okay to take one of those medications short term. If so, we can prescribe either one approved by cardiology. Follow Up: 4 weeks with XR. All questions were answered. Patient verbalized understanding of treatment plan [email or web address] Not available 02/04/2025 21:03:35 04/07/2025 04/07/2025 HPI: 54 year old female who presents today for a follow up of right displaced trimalleolar fracture. This is a result of a fall on 10/01. Currently, 6 months from DOI. Surgery was recommended, and she opted for nonoperative management with a cast. She reports intermittent use with CAM boot and has not scheduled PT. She has been doing gentle ROM exercise given to her last visit and states that it has helped. Currently rates her pain 6/10, and has used Voltaren gel occasionally. Physical Exam: General: Normal appearance. No acute distress. Inspection: Mild swelling medial and lateral aspects of the ankle Palpation: Tenderness to the inferior tip of the medial and lateral malleoli. ROM: Able to do gentle ROM Motor: 5/5 strength. Sensation: Sensation intact. Imaging: XR reviewed, demonstrating a lateral and posterior malleoli fracture with evidence of callus formation. Also, a medial malleolus fracture with visible fracture line, mild displacement, with evidence of callus formation but stable from previous XR. Assessment & Plan: She is 6 months of DOI. At this time no further intervention is needed. PT reordered. Discussed the benefits of PT, especially with her fracture, to help manage complications like stiffness. Continue to use Voltaren gel as needed. Unable to take NSAIDs due to blood thinner Follow Up: As needed All questions were answered. Patient verbalized understanding of treatment plan [email or web address] Not available 04/08/2025 18:28:06 Plan of Treatment Reminders Order Date Submit Date Provider Last Modified By Organization Details Last Modified Time Details Appointments None recorded. Lab None recorded. Referral physical therapist referral - Please contact pt to schedule apt for R ankle. Thanks 2024 025 [facility] [place] [facility], [address], [place], [address], 10:55:15 physical therapist referral - EVAL AND TREAT FOR PAIN AND STIFFNESS 2024 025 [facility] [place] [facility], [address], [place], [address], 21:30:55 physical therapist referral - Please schedule pt for R ankle. Thanks 2024 025 [facility], [address] [place], [address], 11:43:49 Procedures None recorded. Surgeries None recorded. Imaging XR, ankle, 3 or more view 2024 025 [email or web address] [facility] [place], [address], [place], [address], 18:19:46 XR, ankle, 3 or more view 2024 025 [email or web address] [facility] [place], [address], [place], [address], 21:30:55 XR, ankle, 3 or more view 2024 025 [email or web address] [facility] [place], [address], [place], [address], 13:28:29 XR, ankle, 3 or more view 2024 025 [email or web address] [facility] [place], [address], [place], [address], 5 18:59:25 XR, ankle, 3 or more view 2024 025 [email or web address] [facility] [place], [address], [place], [address], 5 17:16:55 Medication Orders Voltaren Arthritis Pain 1 % topical gel 2024 025 [facility] [address] [facility], [place], [address], 21:30:55 Patient TargetsNo targets recorded. Patient Instructions Encounter Date Encounter Id Patient Instructions Last Modified By Organization Details Last Modified Time 11/13/2024 [id number] application of cast* [email or web address] Not available 11/21/2024 10:18:23 Reason for Referral Physical Therapist Referral for Ankle pain R ankle Please schedule pt for R ankle. Thanks Referring Physician: Sean Shukla, Orthopedic Surgery, Encounter Date: 12/04/2024 Physical Therapist Referral for Closed trimalleolar fracture EVAL AND TREAT FOR PAIN AND STIFFNESS Referring Physician: Rhea Bettencourt, Orthopedic Surgery, Encounter Date: 02/03/2025 Physical Therapist Referral for Closed trimalleolar fracture R ankle Please contact pt to schedule apt for R ankle. Thanks Referring Physician: Rhea Bettencourt, Orthopedic Surgery, Encounter Date: 04/07/2025 Results Created Date Observation Date Name Description Value Unit Range Abnormal Flag Note LastModifiedBy Organization Detail LastModifiedTime 10/08/19 25 10/01/2024 XR, ankle , 2 view No observ ation record ed. [email or web address] Not Available 12/2024 10:54:29 10/08/19 25 10/01/2024 XR, tibia + fibul a, 2 view No observ ation record ed. [email or web address] Not Available 12/2024 10:54:29 10/08/19 25 10/01/2024 XR, chest , 2 view No observ ation record ed. [email or web address] Not Available 12/2024 10:54:29 10/31/19 25 XR, ankle , 3 or more view No observ ation record ed. [email or web address] [facility] [place] [address] [facility] [address], [place], [address], 10/30/2024 10:26:50 11/14/19 25 XR, ankle , 3 or more view No observ ation record ed. [email or web address] [facility] [place] [address] [facility] [address], [place], [address], 11/13/2024 21:53:25 12/05/19 25 XR, ankle , 3 or more view No observ ation record ed. [email or web address] [facility] [place] [address] [facility] [address], [place], [address], 12/04/2024 10:56:20 02/04/20 25 XR, ankle , 3 or more view No observ ation record ed. [email or web address] [facility] [place] [address], [place], [address], 02/04/2025 21:03:38 04/07/20 25 XR, ankle , 3 or more view No observ ation record ed. [email or web address] [facility] [place] [address], [place], [address], 04/08/2025 18:19:45 Result Notes None recorded. Problems Name Problem SNOMED Code Status Onset Date Resolution Date Notes Provider Name and Address Organization Details Recorded Time Pain in right sacroiliac joint 5509725421034 9107 Active 2021 Not Available [facility] 3 01:05:43 Pain of right hip joint 8449874917426 02 Active 2021 Not Available [facility] 3 01:05:43 Trochanter ic bursitis of right hip 4731608078380 00 Active 2021 Not Available [facility] 3 01:05:43 Tendinitis of right gluteal tendon 6511518788874 02 Active 2023 Rhea Bettencourt PA-C [address], [place], [address] , [facility] 4 10:59:08 Pain of hip region 73030646 Active 2024 CHRISTIANE Silva, [place] [facility] 5 09:18:27 Ankle pain 652296538 Active 2024 Ally Misaelfitz padgett, [place] [facility] 5 15:24:16 Pain in right lower limb 613367928 Active 2024 Ally padgett, [place] [facility] 5 15:24:30 Closed trimalleol ar fracture 3964289 Active 2024 Rhea Bettencourt PA-C [address], [place], [address] , [facility] 5 21:53:13 Closed trimalleol ar fracture 2843669 Active 2024 Tika padgett, [place] [facility] 5 15:41:58 Problem Notes None recorded. Procedures Surgical History Date Name Laterality Status Provider Name and Address Organization Details Recorded Time 9 open heart surgery completed Pam Vásquez CNA [place] [facility] 12/14/2023 09:46:49 Imaging Results None recorded. Procedure Notes None recorded. Medical Equipment None Reported. Allergies Allergen ID Allergen Name Allergen Category Reaction Reaction Severity Criticality Documentation Date Start Date Code Code System Note Provider Name and Address Organization Details Recorded Time 16722 Aleve medicatio n hives Not available Not available 12/14/2023 22315 1 RxNorm Pamjoycelyn Vásquez, [employer] null, [place] [facility] [place] [facility] 4 09:40:51 96149 naproxen medicatio n hives Not available Not available 04/07/20252019 7258 RxNorm Not Available [employer] - External Data Service - prod 5 04:07:06 94942 Shellfish (substanc e) food,medi cation hives Not available [facility] 04/07/20252020 83921 9006 SNOMED Not Available [employer] External Data Service - prod 5 04:07:34 Medications [...] 20 mg by injection route. 09/18 completed [facility]: 0003- [id number]- [phone] Not Available Not Available [...] height Body mass index (BMI) Body weight Pain severity - 0-10 verbal numeric rating [Score] - Reported Provider Name and Address Organization Details Last Updated DateTime 10/30/2024 167.64 cm 32.3 kg/m2 96232.47 g BRENNAN Wilkinson [place] 10/30/2024 10:26:06 Date Recorded Body height Body mass index (BMI) Body weight Provider Name and Address Organization Details Last Updated DateTime 11/13/2024 167.64 cm 32.3 kg/m2 76839.47 g Ally Douglas [place] 11/13/2024 10:20:33 Date Recorded Body height Body mass index (BMI) Body weight Pain severity - 0-10 verbal numeric rating [Score] - Reported Provider Name and Address Organization Details Last Updated DateTime 12/04/2024 167.64 cm 32.3 kg/m2 89495.47 g Todd Jordan [facility] [employer] [facility] 12/04/2024 10:55:33 Date Recorded Body height Body mass index (BMI) Body weight Provider Name and Address Organization Details Last Updated DateTime 02/03/2025 167.64 cm 32.3 kg/m2 16835.47 g Pam Vásquez [facility] [employer] [facility] 02/03/2025 15:13:05 Date Recorded Body height Provider Name an d Address Organization Details Last Updated DateTime 04/07/2025 167.64 cm Ally Douglas [facility] [employer] [facility] 04/07/2025 15:16:54 Social History Question Answer Notes LastModified by [employer] Details LastModified Time Tobacco Smoking Status Never Smoker Not Available [facility] 06/30/2022 01:04:24 What Was The Date Of Your Most Recent Tobacco Screening? 04/07/2025 [email or web address] Information not available 04/07/2025 Sex: Unknown Functional Status Question Answer Note LastModified by [employer] Details LastModified Time What is your level of alcohol consumption? None [id number] Information not available 06/30/2022 Mental Status None recorded. Family History Relationship Description Onset Age of this Age Resolved Age Notes LastModified by Organization Details LastModified Time Father Hypertensive disorder [id number] Not available 06/30/2022 01:05:01 Mother Hypertensive disorder [id number] Not available 06/30/2022 01:05:01 Brother Hypertensive disorder [id number] Not available 06/30/2022 01:05:01 Brother Diabetes mellitus [id number].064 [id number] Not available 06/30/2022 01:05:01 Maternal Grandmother Diabetes mellitus MIGRATION.787 [id number] Not available 06/30/2022 01:05:01 Mother Diabetes mellitus [...] ICD10 Code Diagnosis IMO Codes Diagnosis Note [id number] Espinoza Argueta MD [facility] [place] [address] [place] [address] 10/14/2021 00:00:00 10/14/2021 14:54:40 [id number] Espinoza Argueta MD [facility] [place] [address] [place] [address] 01/25/2022 00:00:00 01/25/2022 16:10:27 [id number] Sean Shukla MD [facility] [place] [address] [place] [address] 12/14/2023 09:21:54 12/14/2023 11:13:50 Pain in right sacroiliac joint 9384598493 3624503 M53.3 Pain of ri ght hip joint 0677240772 53812 M25.551 Trochanter ic bursitis of right hip 1182311950 13368 M70.61 [id number] Sean Shukla MD [facility] [place] [address] [place] [address] 04/03/2024 09:12:25 04/03/2024 09:49:24 Pain of right hip joint 2933034207 06265 M25.551 Pain in ri ght sacroiliac joint 1837996327 0512218 M53.3 Trochanter ic bursitis of right hip 0516193819 37847 M70.61 Tendinitis of right gluteal tendon 4106067856 11593 M76.01 [id number] Sean Shukla MD [facility] [place] [address] [place] [address] 09/18/2024 08:59:16 09/18/2024 09:56:35 Pain of hip region 13069428 M25.552 [id number] Sean Shukla MD [facility] [place] [address] [place] [address] 10/07/2024 14:43:46 10/07/2024 17:03:52 Ankle pain 241049563 M25.571 [id number] Closed tri malleolar fracture 8426428 S82.851A [id number] Sean Shukla MD [facility] [address] [facility], [address] [place] [address] 10/14/2024 09:19:04 10/14/2024 10:26:52 Pain in right sacroiliac joint 3480152473 0524693 M53.3 Ankle pain 688291772 M25 .571 [id number] [facility] [place] [address] [place] [address] 10/30/2024 10:20:23 10/30/2024 11:01:14 Ankle pain 032532156 M25.571 87786261 [id number] Sean Shukla MD [facility] [place] [address] [place] [address] 11/13/2024 10:16:41 11/13/2024 11:18:17 Ankle pain 043973913 M25.571 [id number] Closed tri malleolar fracture 8664297 S82.851D 40324736 [id number] Sean Shukla MD [facility] [place] [address] [place] [address] 12/04/2024 10:51:32 12/04/2024 11:29:33 Ankle pain 735835509 M25.571 [id number] MD [facility] [place] [address] [place] [address] 02/03/2025 15:09:37 02/03/2025 16:05:07 Ankle pain 809959076 M25.571 [id number] Closed tri malleolar fracture 8955129 S82.851D [id number] Sean Shukla MD [facility] [place] [address] [place] [address] 04/07/2025 15:11:28 04/07/2025 16:39:12 Ankle pain 411274041 M25.571 [id number] Closed tri malleolar fracture 1199846 S82.851D [id number] Health Concerns Section Related Observation LastModified by Organization Detai ls LastModified Time None Recorded Concern Status LastModified by Organization Details LastModified Time None Recorded Advance Directives Directive None Recorded Payers Insurance Date Sequence Insurance Name Policy Number Policy Ramírez Covered Member ID Ramírez Member ID Guarantor Name 04/11/2025 1 [place] [id number] Gil Aguilarke [id number] Mavis Rubin 02/03/2025 [facility] Licha Parra SELF SELF Mavis Rubin 04/07/2025 2 [place] Mavis Hargrove [id number] Mavis Rubin 04/05/2025 3 [place] Mavis Hargrove [id number] Mavis Rubin OBGyn Episode No OBEpisode recorded.
--- OUTSIDE RECORDS SUMMARY | 2025-04-12 08:25 | XMS_ITS | Encounter Summary ---
Author Organization [facility] Healthcare Address [address] [place] [address] Care Team Providers Care Community Service Officer Name Role Phone No, Physician Primary Care Provider [phone] No, Physician Primary Care Provider [phone] Adela Bello NP Primary Care Provider [phone] Melisa Clements MD Primary Care Provider Bao Rivera MD Primary Care Provider Encounter Details Date Type Department Care Team (Late st Contact Info) Description 05/17/2018 Orders Only [facility] Health Information Management [address] [place] [address] Scanning, Provider Social History Tobacco Use Types Packs/Day Years Used Date Smoking Tobacco: Never Assessed Comments Unknown Sex and Gender Information Value Date Recorded Sex Assigned at Not on file Legal Sex Female 3:32 AM PROPELLER TESTER Gender Identity Not on file Sexual Orientation Not on file documented as of this encounter Plan of Treatment Not on file documented as of this encounter Procedures Procedure Name Priority Date/Time Associated Diagnosis Comments CARDIOLOGY DOCUMENT SCAN 05/17/2018 4:21 AM PROPELLER TESTER documented in this encounter Results * Cardiology Document Scan (05/17/2018 4:21 AM PROPELLER TESTER) Anatomical Region Laterality Modality Other us Provider Scanning CV CARDIAC SERVICES PROCEDURES Final Result documented in this encounter Visit Diagnoses Not on filedocumented in this encounter Care Teams Community Service Officer Relationship Specialty Start Date End Date No, Physician PCP - General 06/19/18 07/02/18 No, Physician PCP - General 07/03/18 04/18/19 Adela Bello NP PCP - General Nurse Practitioner 04/19/19 05/04/22 Melisa Clements MD [address] [facility] [address] [place] [address] PCP - General Family Medicine 05/05/22 09/21/24 Bao Rivera MD [address] [facility] [address] [place] [address] PCP - General Family Medicine 09/22/24 documented as of this encounter
--- OUTSIDE RECORDS SUMMARY | 2025-04-12 08:25 | XMS_ITS | Clinical Summary ---
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/19/2019 Chronic neck pain 12/19/2019 History of PR (myocardial infarction) 12/19/2019 Family History Medical History [...] 84 12/16/2019 11:23 AM CDT Temperature 36.1 C (97 F) 12/16/2019 11:23 AM CDT Respiratory Rate 20 12/16/2019 11:23 AM CDT Oxygen Saturation 99% 12/16/2019 11:23 AM CDT Inhaled Oxygen Concentration - - Weight 92.8 kg (204 lb 9.6 oz) 12/16/2019 11:23 AM CDT Height 167.6 cm (5' 6) 12/16/2019 11:23 AM CDT Body Mass Index 33.02 12/16/2019 11:23 AM CDT Plan of Treatment Health Maintenance Due Date Last Done Comments ASCVD LDL 1969 ASCVD Statin 1969 Colorectal Cancer Screening Colonoscopy (10 Years) 1969 Annual Physical 1972 Hepatitis C 10/01/1987 DTaP, Tdap and Td Vaccines ( 1 - Tdap) 1988 Hepatitis B Vaccines (1 of 3 - 19+ 3-dose series) 1988 Pneumococcal Vaccine: 50+ Ye ars (1 of 2 - PCV) 1988 Mammogram Screening 2009 Zoster Vaccines (1 of 2) 10/01/2019 COVID-19 Vaccine ( - 2024-2 6 season) 2024 Influenza Adult (#1) 2025 Hepatitis A Vaccines Aged Out No long er eligible based on patient's age to complete this topic Meningococcal B Vaccine Aged Out No l onger eligible based on patient's age to complete this topic Meningococcal Vaccine Aged Out No sulma karly eligible based on patient's age to complete this topic RSV Immunizations Under 20 Months Aged Out No longer eligible based on patient's age to complete this topic Insurance [facility] Care Teams Curber Relationship Specialty Start Date End Date Bambi Israel NP PCP - General NURSE PRACTITIONER 12/16/19 Jigar Navarro MD 12/16/19
--- OUTSIDE RECORDS SUMMARY | 2025-04-12 08:25 | XMS_ITS | Clinical Summary ---
Author Organization [facility] Address [address] [place] [address] Care Team Providers Care Vest Presser Name Role Phone Jigar Navarro MD Primary Care Provider [phone] Source Comments [facility],non-owned Affiliates and Associated Physician Practices is amultiple site organization consisting of ambulatory clinics and hospital sitesin [place], [place], [place] and [place]. This disclosure is being madepursuant to the Care Everywhere program and may not contain all information available regarding this patient. Last updated 18.[facility] Allergies Active Allergy Reactions Criticality Noted Date Comments Naproxen Rash Medium 10/17/2017 Hives, swelling Medications * Be aware that medications may not be up to date on this document. Alwaysverify current medications with the patient. hydroCHLOROthia zide (HYDRODIURIL) 50 MG tablet Take 50 mg by mouth Active ibuprofen (MOTRIN) 600 MG tablet Take 1 tablet by mouth every 6 hours as needed for Pain 50 tablet 8 Active Additional Information Patient not taking.Reported on 11/16/2017 oxyCODONE-aceta minophen (PERCOCET) 5-325 MG tablet Take 1 tablet by mouth every 6 hours as needed for Pain 30 tablet 8 Active Additional Information Patient not taking.Reported on 11/16/2017 ondansetron (ZOFRAN) 4 MG tablet Take 1 tablet by mouth every 6 hours as needed for Nausea/Vomiting 20 tablet 8 Active Additional Information Patient not taking.Reported on 11/16/2017 metoclopramide (REGLAN) 10 MG tablet Take 1 tablet by mouth 3 times daily before meals 15 tablet 8 Active metroNIDAZOLE (FLAGYL) 500 MG tablet Take 1 tablet by mouth 2 times daily 14 tablet 8 Active Additional Information Patient not taking.Reported on 10/16/2018 fluconazole (DIFLUCAN) 200 MG tablet Take 1 tablet by mouth on days 1,4, and 7. 3 tablet 9 Active Additional Information Patient not taking.Reported on 10/16/2018 aspirin (ASPIRIN) 81 MG tablet Take 81 mg by mouth once daily Active atorvastatin (LIPITOR) 40 MG tablet Take 40 mg by mouth once daily 9 Active ticagrelor (BRILINTA) 90 MG tablet Take 90 mg by mouth once daily 9 Active escitalopram (LEXAPRO) 10 MG tablet Take 10 mg by mouth once daily 9 Active metoprolol succinate XL 24hr (TOPROL XL) 25 MG tablet Take 25 mg by mouth once daily 9 Active ramipril (ALTACE) 5 MG capsule Take 5 mg by mouth once daily 9 Active Active Problems Problem Noted Date Diagnosed Date Adenomyosis 11/03/2017 S/P laparoscopic hysterectomy 10/25/2017 Social History Tobacco Use Types Packs/Day Years Used Date Smoking Tobacco: Never Smokeless Tobacco: Never Alcohol Use Standard Drinks/Week Comments No 0 (1 standard drink = 0.6 oz pur e alcohol) Comments No Sex and Gender Information Value Date Recorded Sex Assigned at Not on file Legal Sex Female 5:04 AM [employer] Gender Identity Not on file Sexual Orientation Not on file Last Filed Vital Signs Vital Sign Reading Time Taken Comments Blood Pressure 140/70 10/16/2018 11:34 AM CDT Pulse 71 10/26/2017 8:31 AM CDT Temperature 36.9 C (98.5 F) 10/26/2017 8:31 AM CDT Respiratory Rate 16 10/26/2017 8:31 AM CDT Oxygen Saturation 100% 10/26/2017 8:31 AM CDT Inhaled Oxygen Concentration - - Weight 87.7 kg (193 lb 6.4 oz) 10/16/2018 11:34 AM CDT Height 167.6 cm (5' 6) 10/16/2018 11:34 AM CDT Body Mass Index [...] 10/01/2019 ZOSTER VACCINE (1 of 2) 10/01/2019 DEPRESSION SCREENING 05/01/2024 COVID-19 VACCINE (1 - 2024-2 6 season) 2024 INFLUENZA VACCINE (#1) 2024 0, 02/21/2019 HIB VACCINE Aged Out No longer eligi ble based on patient's age to complete this topic HPV VACCINE Aged Out No longer eligi ble based on patient's age to complete this topic MENINGOCOCCAL (Group B) VACCINE SHARED DECISION-MAKING Aged Out No longer eligible based on patient's age to complete this topic MENINGOCOCCAL GROUPS A/C/Y/W VACCINE Aged Out No longer eligible b ased on patient's age to complete this topic Insurance MEDICAID - OUT OF STATE [facility] Address: [address] [place] [address] MEDICAID - [place] [facility] MEDICAID - OUT OF STATE Care Teams Vest Presser Relationship Specialty Start Date End Date Jigar Navarro MD PCP - General Family Medicine 10/17/17
[2025-04-12 09:20] LABS: Hematocrit 39.3 % (37.0-47.0); Hemoglobin 12.3 g/dL (12.0-15.0); Immature Granulocyte Percent A 0.2 % (0-0.5); Lymphocytes Absolute Auto 2.37 K/mm3 (0.9-3.2); Mean Corpuscular HGB Conc 31.3 g/dl (32-36); Mean Corpuscular Hemoglobin 26.9 pg (26-34); Mean Corpuscular Volume 86.0 fl (80-100); Nucleated Red Blood Cells Absolute Auto 0.000 K/mm3 (0.0-0.012); Nucleated Red Blood Cells Perc 0.0 % (0.0-0.2); Platelet Count Result 290 k/mm3 (150-375); Red Blood Count 4.57 M/mm3 (4.2-5.4); White Blood Count 5.4 K/mm3 (4.5-10.0)
[2025-04-12 09:28] LABS: Hemoglobin A1C 5.7 % (<5.7)
[2025-04-12 09:32] LABS: Alanine Aminotransferase 47 U/L (6-35); Albumin Level 4.1 g/dL (3.5-5.1); Alkaline Phosphatase 94 U/L (38-126); Anion Gap 3 mmol/L (4-12); Aspartate Amino Transferase 43 U/L (14-36); Bilirubin,Total 0.4 mg/dL (0.2-1.3); Blood Urea Nitrogen 13 mg/dL (7-17); Calcium 8.6 mg/dL (8.4-10.2); Carbon Dioxide 29 mmol/L (22-30); Chloride 104 mmol/L (98-107); Cholesterol 147 mg/dL (0-200); Estimated Glomerular Filt Rate > 60; Glucose 83 mg/dL (65-110); HDL Direct 63 mg/dL; Potassium 4.2 mmol/L (3.4-5.0); Sodium 136 mmol/L (137-145); Total Protein 7.6 g/dL (6.3-8.2); Triglycerides 78 mg/dL (<150)
[2025-04-12 10:07] LABS: Thyroid Stimulating Hormone 2.390 uIU/mL (0.465-4.680)
== END 2025-04-12 08:17 | disposition home or self-care (01) ==
PROVIDERS: PCP Family Medicine; Referring Provider Specialist; Visit Provider Physician Assistant
DX: E07.9 Disorder of thyroid, unspecified (principal); F41.1 Generalized anxiety disorder; I10 Essential (primary) hypertension; I25.10 Atherosclerotic heart disease of native coronary artery without angina pectoris; E78.5 Hyperlipidemia, unspecified; R73.09 Other abnormal glucose
CPT/HCPCS: 36415; 80053; 80061; 83036; 84443; 85025